=== PATIENT | male | born 1940 | race Caucasian/White ===

== ENCOUNTER → 2017-01-09 | Outpatient (CLI) | payer MEDICARE ==
[2017-01-09 14:56] LABS: ALT 51 U/L (21-72); AST 27 U/L (17-59); Alkaline Phosphatase 51 U/L (38-126); Anion Gap 15 mmol/L; Blood Urea Nitrogen 20 mg/dL (9-20); Carbon Dioxide 27 mmol/L (22-30); Chloride 103 mmol/L (98-107); Cholesterol 114 mg/dL (<200); Glucose 235 mg/dL (74-99); HDL Cholesterol 42 mg/dL (40-60); Non-African American GFR(MDRD) >60 (>60 ml/min/1.73 sqM); Potassium 4.7 mmol/L (3.5-5.1); Sodium 145 mmol/L (137-145); Total Bilirubin 1.3 mg/dL (0.2-1.3); Total Protein 7.6 g/dL (6.3-8.2); Triglycerides 152 mg/dL (<150)
[2017-01-09 14:57] LABS: CH 31.1; CHCM 32.6; HCT 47.4 % (39.0-53.0); HDW 2.62; HGB 15.4 gm/dL (13.0-17.5); MCH 31.2 pg (25.0-35.0); MCHC 32.5 g/dL (31.0-37.0); Mean Platelet Volume 7.9; RBC 4.94 m/uL (4.30-5.90); RDW 13.1 % (11.5-15.5); WBC 9.2 k/uL (3.8-10.6)
--- NOTE | 2017-01-09 15:08 | XR ---
EXAMINATION TYPE: XR chest 2V DATE OF EXAM: 01/09/2017 2:56 PM HISTORY: K21.0 Gastro-esophageal reflux disease with esophagitis. REFERENCE: Previous study dated 10/10/2015. FINDINGS: There is some chronic scarring at the left lung base. The lungs are otherwise clear. Pleura l spaces are clear. The heart is not enlarged. IMPRESSION: CHRONIC SCARRING, LEFT LUNG BASE.
[2017-01-09 15:27] LABS: Prostate Specific Antigen 2.33 ng/mL (0.00-4.00)
[2017-01-09 18:42] LABS: Hemoglobin A1C 8.4 % (4.2-6.1)
== END | disposition home or self-care (01) ==
LOC: LABWHC1 14:09
PROVIDERS: ATTEND Internal Medicine
DX: J98.4 Other disorders of lung (principal); Z00.01 Encounter for general adult medical examination with abnormal findings; I11.9 Hypertensive heart disease without heart failure; E11.9 Type 2 diabetes mellitus without complications; N40.1 Benign prostatic hyperplasia with lower urinary tract symptoms; E03.9 Hypothyroidism, unspecified; K21.0 Gastro-esophageal reflux disease with esophagitis
CPT/HCPCS: 36415; 71020; 80053; 80061; 83036; 84153; 84439; 84443; 85027

== ENCOUNTER → 2018-02-26 | Outpatient (CLI) | payer MEDICARE ==
[2018-02-26 07:52] LABS: HCT 44.5 % (39.0-53.0); HGB 14.7 gm/dL (13.0-17.5); MCH 30.6 pg (25.0-35.0); MCV 92.9 fL (80.0-100.0); Mean Platelet Volume 7.1; Platelet Count 228 k/uL (150-450); RBC 4.79 m/uL (4.30-5.90); WBC 8.5 k/uL (3.8-10.6)
[2018-02-26 08:39] LABS: ALT 33 U/L (21-72); AST 20 U/L (17-59); Albumin 4.3 g/dL (3.5-5.0); Alkaline Phosphatase 49 U/L (38-126); Anion Gap 14 mmol/L; Blood Urea Nitrogen 23 mg/dL (9-20); Calcium 9.9 mg/dL (8.4-10.2); Carbon Dioxide 26 mmol/L (22-30); Chloride 103 mmol/L (98-107); Cholesterol 121 mg/dL (<200); Glucose 231 mg/dL (74-99); HDL Cholesterol 47 mg/dL (40-60); LDL Cholesterol,Calculated 50 mg/dL (0-99); Potassium 4.2 mmol/L (3.5-5.1); Sodium 143 mmol/L (137-145); Total Protein 6.7 g/dL (6.3-8.2); Triglycerides 118 mg/dL (<150)
[2018-02-26 08:55] LABS: T4, Free (Free Thyroxine) 1.23 ng/dL (0.78-2.19)
[2018-02-26 18:03] LABS: Hemoglobin A1C 8.3 % (4.0-6.0)
== END | disposition home or self-care (01) ==
LOC: LABWHC1 07:32
PROVIDERS: ATTEND Internal Medicine Endocrinology, Diabetes & Metabolism
DX: Z00.01 Encounter for general adult medical examination with abnormal findings (principal); I11.9 Hypertensive heart disease without heart failure; E11.65 Type 2 diabetes mellitus with hyperglycemia; N40.1 Benign prostatic hyperplasia with lower urinary tract symptoms
CPT/HCPCS: 36415; 80053; 80061; 82043; 82570; 83036; 84153; 84439; 84443; 85027

== ENCOUNTER → 2018-07-15 | Outpatient (CLI) | payer MEDICARE ==
--- NOTE | 2018-07-15 10:09 | US ---
EXAMINATION TYPE: US abdomen complete DATE OF EXAM: 07/15/2018 COMPARISON: NONE CLINICAL HISTORY: R68.89 Other abnormal clinical findings. Large body habitus, overlying bowel gas, difficult to scan EXAM MEASUREMENTS: Liver Length: 14.5 cm Gallbladder Wall: 0.1 cm CBD: 0.2 cm Spleen: 7.7 cm Right Kidney: 11.7 x 5.9 x 5.4 cm Left Kidney: 11 x 5.7 x 5.2 cm Pancreas: Obscured by bowel gas Liver: portions seen wnl Gallbladder: wnl Evidence for sonographic Salomon's sign: No CBD: wnl Spleen: wnl Right Kidney: wnl Left Kidney:lateral mid 2.4 x 1.6 x 1.8 cm Upper IVC: wnl Abd Aorta: wnl lower rt inguinal area swelling increases in size on valsalva wo valsalva, 3.2 cm w valsalva 4.0 cm The visualized liver is homogenous. The intrahepatic portion of the IVC and visualized abdominal aor ta are within normal limits. There is no evidence of cholelithiasis. Common bile duct is unremarkab le. The visualized portions of the pancreas are homogenous. Portions are obscured by overlying bowel gas on images saved. The spleen is unremarkable. Kidneys are symmetric and free of hydronephrosis. Laterally in left kidney there is nonspecific 2.4 x 1.6 x 1.8 cm oval hypoechoic lesion cannot exclu de solid lesion at this level. Towards end of study study there is asymmetric prominence in the right groin with Valsalva. IMPRESSION: At site of increasing swallowing I suspect fat-containing groin hernia. In addition cannot exclude s olid lesion laterally mid pole level left kidney. Advise contrast-enhanced chest CT abdomen and pelvi s to further evaluate both levels.
== END | disposition home or self-care (01) ==
LOC: RADUSWWP 07:48
PROVIDERS: ATTEND Internal Medicine
DX: R68.89 Other general symptoms and signs (principal); R19.09 Other intra-abdominal and pelvic swelling, mass and lump
CPT/HCPCS: 76700

== ENCOUNTER → 2018-07-28 | Outpatient (CLI) | payer MEDICARE ==
[2018-07-28 13:34] LABS: Blood Urea Nitrogen 21 mg/dL (9-20)
--- NOTE | 2018-07-28 15:09 | CT ---
EXAMINATION TYPE: CT abdomen pelvis w con DATE OF EXAM: 07/28/2018 COMPARISON: NONE HISTORY: 77-year-old male with right groin pain/lump TECHNIQUE: Contiguous axial scanning of the abdomen and pelvis following administration of 100 ml Iso kiran 300 IV contrast. Delayed images through the kidneys and coronal/sagittal reconstructions perform ed. CT DLP: 1508.1 mGycm Automated exposure control for dose reduction was used. FINDINGS: Mild bilateral gynecomastia. Ectatic upper descending thoracic aorta 3.0 cm. Strandy atelectasis with in the visualized mid to lower lungs. No pleural effusion. Heart normal size without pericardial effu fatuma. No focal liver lesion or biliary ductal dilatation. Portal venous system is patent. Gallbladder, adrenal glands, right kidney, spleen, and pancreas appear within normal limits. Subcentimeter hypodensity anterior lower pole left kidney too small fracture CT characterization, lik josh cyst. Additionally, there is a 4 mm nonobstructive calculus in the mid left kidney. No dilated small bowel, free fluid, or free air. No mesenteric or retroperitoneal lymphadenopathy. Mild to moderate atherosclerotic calcifications within the abdominal aorta and iliac arteries. Oral contrast progressed to the cecum. Normal appendix. Scattered jmnp-vq-pjnsodau stool. No pericolo balbir inflammatory change. A moderate sized fat-containing direct right inguinal hernia measuring 7.6 x 4.6 cm. Prostatomegaly a t 5.7 cm wide. Multiple pelvic phlebolith. Bladder nondistended. No abnormal fluid collection the pel vis or pelvic lymphadenopathy. Bones: Mild degenerative changes of the hips. Osteitis pubis. Bilateral L5 pars defects with grade 1 anterolisthesis that L5-S1. Moderate degenerative disc disease L3-L4. No osseous destructive process. IMPRESSION: 1. A MODERATE-SIZED FAT-CONTAINING, RIGHT-SIDED, DIRECT INGUINAL HERNIA MEASURING 7.6 X 4.6 CM. 2. A 4 MM NONOBSTRUCTIVE LEFT RENAL CALCULUS AND PROSTATOMEGALY (5.7 CM WIDE).
== END ==
LOC: RADCTMAIN 12:46
PROVIDERS: ATTEND Internal Medicine
DX: K40.90 Unilateral inguinal hernia, without obstruction or gangrene, not specified as recurrent (principal); N20.0 Calculus of kidney; N40.0 Benign prostatic hyperplasia without lower urinary tract symptoms
CPT/HCPCS: 82565; 84520; 74177; 36415; Q9967

== ENCOUNTER → 2019-02-07 | Outpatient (CLI) | payer MEDICARE ==
--- NOTE | 2019-02-08 10:19 | MR ---
MR brain without contrast HISTORY: Parkinson's disease Multiplanar multisequence imaging obtained through the brain. Correlation to prior MR brain 10/10/2015 There is no restricted diffusion. There is suggestion of absent swallow tail sign in the substantia n igra consistent with patient's history of Parkinson's disease. Cortical atrophy is stable and likely age-related. White matter signal changes show similar appearance to prior exam. There is no hemorrhag e or hydrocephalus. Orbits show symmetric appearance. Inflammatory change within the maxillary sinuse s may represent mucous retention cysts or polyps. There is normal vascular flow voids present. Corpus callosum, pituitary, cervical medullary junction, cerebellopontine angles are within normal limits. IMPRESSION: Age-related atrophy and probable chronic small vessel ischemia. Sinus disease. Findings s uggest patient's diagnosis of Parkinson's disease.
== END ==
LOC: RADMRIMAIN 12:01
PROVIDERS: ATTEND Psychiatry & Neurology Neurology
DX: G20 Parkinson's disease (principal)
CPT/HCPCS: 70551

== ENCOUNTER → 2019-03-30 | Outpatient (CLI) | payer MEDICARE ==
[2019-03-30 14:29] LABS: HCT 44.8 % (39.0-53.0); HGB 14.5 gm/dL (13.0-17.5); MCHC 32.3 g/dL (31.0-37.0); MCV 95.7 fL (80.0-100.0); Mean Platelet Volume 7.2; Platelet Count 269 k/uL (150-450); RBC 4.68 m/uL (4.30-5.90); RDW 13.2 % (11.5-15.5); WBC 7.2 k/uL (3.8-10.6)
[2019-03-30 18:37] LABS: Albumin 4.8 g/dL (3.80-4.90); Albumin/Globulin Ratio 2.67 (1.60-3.17); Anion Gap 13.7 mmol/L (4.00-12.00); Carbon Dioxide 23.3 mmol/L (21.6-31.8); Globulin 1.8 g/dL (1.6-3.3); Potassium 4.3 mmol/L (3.5-5.5); Total Bilirubin 1.2 mg/dL (0.2-1.2); Total Protein 6.6 g/dL (6.2-8.2)
[2019-03-30 18:45] LABS: T4, Free (Free Thyroxine) 1.2 ng/dL (0.80-1.80)
[2019-03-30 21:08] LABS: Hemoglobin A1C 7.7 % (4.0-6.0)
== END ==
LOC: LABWHC1 13:58
PROVIDERS: ATTEND Internal Medicine
DX: Z00.00 Encounter for general adult medical examination without abnormal findings (principal); E11.9 Type 2 diabetes mellitus without complications; I11.9 Hypertensive heart disease without heart failure; E78.2 Mixed hyperlipidemia; N40.1 Benign prostatic hyperplasia with lower urinary tract symptoms; K21.0 Gastro-esophageal reflux disease with esophagitis
CPT/HCPCS: 36415; 80053; 80061; 83036; 84153; 84439; 84443; 85027

== ENCOUNTER 2019-06-22 07:58 | Day surgery (SDC) | payer MEDICARE ==
[2019-06-20 12:41] VITALS: BMI 28.7
[~2019-06-22 07:58] MED LIST: LACTATED RINGERS 1,000 ML IV SCH; LIDOCAINE 1% 20 ML VIAL (10MG/ML) FOR IV START INTRADERMA PRN
[2019-06-22 08:21] VITALS: TEMP 97.5
[2019-06-22 08:37] LABS: Glucose,Whole Blood 218 mg/dL (75-99)
[2019-06-22] MEDS ORDERED: PROPOFOL 10 MG/ML 20 ML VIAL IV ONE (08:43)
[2019-06-22] MEDS ORDERED: LIDOCAINE 1% INJ 10MG/ML (20 ML MDV) ONE (08:43)
--- NOTE | 2019-06-22 08:49 | P.GSHP ---
History of Present Illness H&P Date: 06/22/19 CHIEF COMPLAINT: Colon screen HISTORY OF PRESENT ILLNESS: The patient is a 78-year-old male who presents for colon screen. Lower endoscopy was offered for further evaluation and management. PAST MEDICAL HISTORY: Please see list. PAST SURGICAL HISTORY: Please see list. MEDICATIONS: Please see list. ALLERGIES: Please see list. SOCIAL HISTORY: No illicit drug use FAMILY HISTORY: No reports of Crohn disease or ulcerative colitis. REVIEW OF ORGAN SYSTEMS: CONSTITUTIONAL: No reports of fevers or chills. PHYSICAL EXAM: VITAL SIGNS: Stable GENERAL: Well-developed pleasant in no acute distress. HEENT: No scleral icterus. Extraocular movements grossly intact. Moist buccal mucosa. NECK: Supple without lymphadenopathy. CHEST: Unlabored respirations. Equal bilateral excursions. CARDIOVASCULAR: Regular rate and rhythm. Distal 2+ pulses. ABDOMEN: Soft, nontender, nondistended. MUSCULOSKELETAL: No clubbing, cyanosis, or edema. ASSESSMENT: 1. Colon screen. PLAN: 1. Recommend proceeding with a lower endoscopy Past Medical History Past Medical History: CVA/TIA, Diabetes Mellitus, Eye Disorder, Neurologic Disorder, Prostate Disorder, Thyroid Disorder Additional Past Medical History / Comment(s): PARKINSON'S. BILAT CATARACTS. [id number] LEFT SIDE History of Any Multi-Drug Resistant Organisms: None Reported Past Surgical History: Hernia Repair Additional Past Surgical History / Comment(s): bowel obstruction as a baby. COLONOSCOPY. Past Anesthesia/Blood Transfusion Reactions: No Reported Reaction Smoking Status: Current every day smoker - Past Family History Father Family Medical History: Asthma, Cancer, Congestive Heart Failure (CHF), CVA/TIA Mother Family Medical History: Congestive Heart Failure (CHF), Diabetes Mellitus Medications and Allergies Home Medications Medication Instructions Recorded Confirmed Type glipiZIDE [Glucotrol] 10 mg PO BID 10/10/15 06/22/19 History Simvastatin [Zocor] 40 mg PO HS #30 tab 10/12/15 06/22/19 Rx Aspirin [Adult Low Dose Aspirin EC] 81 mg PO BID 06/20/19 06/20/19 History Carbidopa-Levodopa 25-100 mg 1 each PO TID 06/20/19 06/22/19 History [Sinemet 25-100] Glucosamine/MSM/Chrond/D3/Bosw 1 each PO DAILY 06/20/19 06/22/19 History [Imvpinfgfzx-Lyjtix-PSG-D3 Cplt] Levothyroxine Sodium [Synthroid] 75 mcg PO DAILY 06/20/19 06/22/19 History Multivitamins, Thera [Multivitamin 1 each PO DAILY 06/20/19 06/20/19 History (formulary)] Occuvite 1 each PO DAILY 06/20/19 History Pioglitazone [Actos] 30 mg PO DAILY 06/20/19 06/22/19 History Primidone [Mysoline] 50 mg PO DAILY 06/20/19 06/22/19 History Tamsulosin [Flomax] 0.4 mg PO HS 06/20/19 06/22/19 History Tolterodine ER [Detrol LA] 4 mg PO DAILY 06/20/19 06/22/19 History metFORMIN HCL 1,000 mg PO AC-BRKFST 06/20/19 06/22/19 History metFORMIN HCL 1,500 mg PO AC-SUPPER 06/20/19 06/22/19 History Allergies Allergy/AdvReac Type Severity Reaction Status Date / Time No Known Allergies Allergy Verified 06/20/19 12:26 Surgical - Exam Vital Signs Temp Pulse Resp BP Pulse Ox 97.5 F L 109 H 16 117/65 93 L 06/22/19 08:19 06/22/19 08:19 06/22/19 08:19 06/22/19 08:19 06/22/19 08:19 Results - Labs Abnormal Lab Results - Last 24 Hours (Table) 06/22/19 Range/Units 08:27 POC Glucose (mg/dL) 218 H (75-99) mg/dL
--- NOTE | 2019-06-22 09:06 | P.PCN ---
Date of Procedure: 06/22/19 Description of Procedure: PREOPERATIVE DIAGNOSIS: Colonoscopy screening POSTOPERATIVE DIAGNOSIS: Colonoscopy screening Transverse colon adenoma Ascending colon adenoma OPERATION: Colonoscopy to the ileocecal valve and appendiceal orifice. Colonoscopy with multiple cold forceps biopsies. SURGEON: Shirley James MD. ANESTHESIA: MAC. INDICATIONS: The patient is a 78-year-old male who presents for colonoscopy screening. Last colonoscopy over 15 years ago. Benefits and risks were described and informed consent was obtained. DESCRIPTION OF PROCEDURE: The patient had undergone Suprep. He had been brought into the operating room and laid in the left lateral decubitus position. After adequate intravenous sedation, the rectum was examined with 2% lidocaine jelly. No external hemorrhoids were encountered. The prostatic fossa was unremarkable. The rectal tone was within normal limits. No lesions were palpated in the rectal vault. An Olympus colonoscope was advanced until the ileocecal valve and appendiceal orifice were clearly viewed. The prep was excellent. No scattered diverticulosis was encountered. Multiple colonic polyps were found and cold forcep biopsy. No evidence of focal colitis was found. Retroflexion of the scope demonstrated no internal hemorrhoids. The colon was desufflated. The patient had tolerated the procedure well. Withdrawal time was over 6 minutes. FINDINGS: Aronchick preparation quality scale 1(1-5) No internal hemorrhoids No external hemorrhoids No arteriovenous malformations No diverticulosis Removal of 2 polyps: - Cold forceps biopsy at ascending colon, 5 mm polyp. - Cold forceps biopsy at mid transverse colon, 4 mm polyp. No focal colitis. RECOMMENDATIONS: Repeat colonoscopy 3 years, 2021 Plan - Discharge Summary Discharge Rx Participant: No New Discharge Prescriptions: No Action glipiZIDE [Glucotrol] 10 mg PO BID Simvastatin [Zocor] 40 mg PO HS #30 tab metFORMIN HCL 1,000 mg PO AC-BRKFST Tolterodine ER [Detrol LA] 4 mg PO DAILY Pioglitazone [Actos] 30 mg PO DAILY Levothyroxine Sodium [Synthroid] 75 mcg PO DAILY Carbidopa-Levodopa 25-100 mg [Sinemet 25-100] 1 each PO TID metFORMIN HCL 1,500 mg PO AC-SUPPER Tamsulosin [Flomax] 0.4 mg PO HS Primidone [Mysoline] 50 mg PO DAILY Occuvite 1 each PO DAILY Multivitamins, Thera [Multivitamin (formulary)] 1 each PO DAILY Aspirin [Adult Low Dose Aspirin EC] 81 mg PO BID Glucosamine/MSM/Chrond/D3/Bosw [Xzcqgwjobnz-Ekjfxa-VTM-D3 Cplt] 1 each PO DAILY Discharge Medication List glipiZIDE [Glucotrol] 10 mg PO BID 10/10/15 [History] Simvastatin [Zocor] 40 mg PO HS #30 tab 10/12/15 [Rx] Aspirin [Adult Low Dose Aspirin EC] 81 mg PO BID 06/20/19 [History] Carbidopa-Levodopa 25-100 mg [Sinemet 25-100] 1 each PO TID 06/20/19 [History] Glucosamine/MSM/Chrond/D3/Bosw [Gvghehyehww-Oxpicd-CDY-D3 Cplt] 1 each PO DAILY 06/20/19 [History] Levothyroxine Sodium [Synthroid] 75 mcg PO DAILY 06/20/19 [History] Multivitamins, Thera [Multivitamin (formulary)] 1 each PO DAILY 06/20/19 [History] Occuvite 1 each PO DAILY 06/20/19 [History] Pioglitazone [Actos] 30 mg PO DAILY 06/20/19 [History] Primidone [Mysoline] 50 mg PO DAILY 06/20/19 [History] Tamsulosin [Flomax] 0.4 mg PO HS 06/20/19 [History] Tolterodine ER [Detrol LA] 4 mg PO DAILY 06/20/19 [History] metFORMIN HCL 1,000 mg PO AC-BRKFST 06/20/19 [History] metFORMIN HCL 1,500 mg PO AC-SUPPER 06/20/19 [History] Follow up Appointment(s)/Referral(s): Shirley James MD [STAFF PHYSICIAN] - As Needed Patient Instructions/Handouts: Colorectal Polyps (DC) Activity/Diet/Wound Care/Special Instructions: Repeat colonoscopy in 3 years, 2021 Discharge Disposition: HOME SELF-CARE
[2019-06-22 09:22] VITALS: BP 132/78; PULSE 83; RESP 16
== END 2019-06-22 09:30 | disposition home or self-care (01) ==
LOC: ORWHC2ENDO 07:58
PROVIDERS: ATTEND Surgery Plastic and Reconstructive Surgery
DX: Z12.11 Encounter for screening for malignant neoplasm of colon (principal); D12.2 Benign neoplasm of ascending colon; D12.3 Benign neoplasm of transverse colon; G20 Parkinson's disease; E11.9 Type 2 diabetes mellitus without complications; I69.344 Monoplegia of lower limb following cerebral infarction affecting left non-dominant side; E07.9 Disorder of thyroid, unspecified; H26.9 Unspecified cataract; N42.9 Disorder of prostate, unspecified; F17.220 Nicotine dependence, chewing tobacco, uncomplicated; Z79.82 Long term (current) use of aspirin; Z79.84 Long term (current) use of oral hypoglycemic drugs; Z79.890 Hormone replacement therapy; Z79.899 Other long term (current) drug therapy; Z98.890 Other specified postprocedural states; Z86.73 Personal history of transient ischemic attack (TIA), and cerebral infarction without residual deficits; Z87.19 Personal history of other diseases of the digestive system; Z83.3 Family history of diabetes mellitus; Z82.5 Family history of asthma and other chronic lower respiratory diseases; Z80.9 Family history of malignant neoplasm, unspecified; Z82.3 Family history of stroke; Z82.49 Family history of ischemic heart disease and other diseases of the circulatory system
CPT/HCPCS: 45380; 88305

== ENCOUNTER → 2020-01-02 | Outpatient (CLI) | payer MEDICARE ==
[2020-01-02 14:14] LABS: Appearance,Urine Clear (Clear); Basophils % (A) 1 %; Bilirubin,Urine Negative (Negative); Blood,Urine Negative (Negative); Color,Urine Yellow; Eosinophils # (A) 0.2 k/uL (0-0.7); Eosinophils % (A) 2 %; Glucose,Urine (UA) 2+ (Negative); HCT 43.9 % (39.0-53.0); HGB 13.7 gm/dL (13.0-17.5); Ketones,Urine Negative (Negative); Leukocyte Esterase,Urine Negative (Negative); Lymphocytes # (A) 1.4 k/uL (1.0-4.8); Lymphocytes % (A) 21 %; MCH 29.9 pg (25.0-35.0); MCHC 31.1 g/dL (31.0-37.0); MCV 96.2 fL (80.0-100.0); Mean Platelet Volume 7.7; Monocytes # (A) 0.4 k/uL (0-1.0); Monocytes % (A) 6 %; Neutrophils # (A) 4.4 k/uL (1.3-7.7); Neutrophils % (A) 68 %; Nitrite,Urine Negative (Negative); Platelet Count 215 k/uL (150-450); Protein,Urine Trace (Negative); RBC 4.56 m/uL (4.30-5.90); RDW 13.6 % (11.5-15.5); Specific Gravity,Urine 1.024 (1.001-1.035); WBC 6.4 k/uL (3.8-10.6)
[2020-01-02 20:28] LABS: Hepatitis A Antibody IgM Non-Reactive (Non-Reactive); Hepatitis B Core IgM Non-Reactive (Non-Reactive); Hepatitis B Surface Antigen Non-Reactive (Non-Reactive); Hepatitis C IgG Antibody Non-Reactive (Non-Reactive)
[2020-01-02 20:32] LABS: Hemoglobin A1C 7.6 % (4.0-6.0)
[2020-01-02 21:03] LABS: African American GFR (CKD) 83.8 (60.0-200.0); Albumin 4.5 g/dL (3.80-4.90); Albumin/Globulin Ratio 2.5 (1.60-3.17); Anion Gap 11.4 mmol/L (4.00-12.00); Calcium 9.6 mg/dL (8.7-10.3); Carbon Dioxide 27.6 mmol/L (21.6-31.8); Chol/HDL Ratio 2.85; Globulin 1.8 g/dL (1.6-3.3); LDL Cholesterol,Calculated 54.4 mg/dL (0.0-131.0); Non-African American GFR(CKD) 72.3 (60.0-200.0); Potassium 4.3 mmol/L (3.5-5.5); Total Bilirubin 1.2 mg/dL (0.2-1.2); Total Protein 6.3 g/dL (6.2-8.2); Uric Acid 3.3 mg/dL (3.7-8.7); VLDL Calculation 19.6 mg/dL (5.00-40.00)
[2020-01-02 21:13] LABS: T4, Free (Free Thyroxine) 1.6 ng/dL (0.80-1.80)
[2020-01-02 21:27] LABS: Urine Creatinine 187.4 mg/dL
== END | disposition home or self-care (01) ==
LOC: LABWHC1 13:41
PROVIDERS: ATTEND Internal Medicine
DX: E78.5 Hyperlipidemia, unspecified (principal); I10 Essential (primary) hypertension; E55.9 Vitamin D deficiency, unspecified; E11.9 Type 2 diabetes mellitus without complications; N40.0 Benign prostatic hyperplasia without lower urinary tract symptoms; R00.0 Tachycardia, unspecified
CPT/HCPCS: 36415; 80053; 80061; 80074; 81003; 82043; 82306; 82570; 83036; 84153; 84439; 84443; 84550; 85025

== ENCOUNTER 2020-03-05 12:07 | Inpatient (IN) | payer MEDICARE ==
[2020-03-05] MEDS ORDERED: SODIUM CHLORIDE 0.9% 1,000 ML IV STA (12:40)
--- NOTE | 2020-03-05 12:46 | ED ---
Weakness HPI - General Source: EMS Mode of arrival: EMS Limitations: no limitations <Adam Sherman - Last Filed: 03/05/20 18:28> <Sepideh Juares - Last Filed: 03/07/20 03:28> - General Chief complaint: Weakness Stated complaint: Weakness Time Seen by Provider: 03/05/20 12:28 - History of Present Illness Initial comments: Patient is 79-year-old male with history of CVA and Parkinson's presenting to emergency Department with a chief complaint of weakness. Patient has mild left- sided deficits from a previous stroke. Patient states his history is developed increased weakness in his left leg, more than his usual deficits. Patient states today he was attempting to go to the bathroom when he felt slightly weak on the left leg and fell to the floor. Patient was brought to the ED via EMS. Patient denies any changes to his left upper extremity or vision. Patient also reports foul-smelling urine over the past year to 3 days but denies any penile irritation, testicular pain or swelling. Denies any chest pain shortness of breath, fevers night sweats or chills. Denies any headaches, abdominal pain, na usea vomiting diarrhea. Does report decreased by mouth intake Over the last week. (Adam Sherman) - Related Data Home Medications Medication Instructions Recorded Confirmed glipiZIDE [Glucotrol] 10 mg PO BID 10/10/15 03/05/20 Aspirin [Adult Low Dose Aspirin EC] 81 mg PO BID 06/20/19 03/05/20 Carbidopa-Levodopa 25-100 mg 1 tab PO QID 06/20/19 03/05/20 [Sinemet 25-100] Glucosamine/MSM/Chrond/D3/Bosw 1 tab PO DAILY 06/20/19 03/05/20 [Eocznldtrer-Mkjdwj-XAU-D3 Cplt] Levothyroxine Sodium [Synthroid] 75 mcg PO DAILY 06/20/19 03/05/20 Multivitamins, Thera [Multivitamin 1 each PO DAILY 06/20/19 03/05/20 (formulary)] Occuvite 1 tab PO DAILY 06/20/19 03/05/20 Pioglitazone [Actos] 30 mg PO DAILY 06/20/19 03/05/20 Tamsulosin [Flomax] 0.4 mg PO BID 06/20/19 03/05/20 metFORMIN HCL 1,000 mg PO AC-BRKFST 06/20/19 03/05/20 metFORMIN HCL 1,500 mg PO AC-SUPPER 06/20/19 03/05/20 Metoprolol Succinate (ER) [Toprol 25 mg PO DAILY 03/05/20 03/05/20 Xl] Allergies Allergy/AdvReac Type Severity Reaction Status Date / Time No Known Allergies Allergy Verified 03/05/20 14:37 Review of Systems ROS Other: All systems not noted in ROS Statement are negative. <Adam Sherman - Last Filed: 03/05/20 18:28> ROS Other: All systems not noted in ROS Statement are negative. <Sepideh Juares - Last Filed: 03/07/20 03:28> ROS Statement: Those systems with pertinent positive or pertinent negative responses have been documented in the HPI. Past Medical History Past Medical History: CVA/TIA, Diabetes Mellitus, Eye Disorder, Neurologic Disorder, Prostate Disorder, Thyroid Disorder Additional Past Medical History / Comment(s): PARKINSON'S. BILAT CATARACTS. [id number] LEFT SIDE History of Any Multi-Drug Resistant Organisms: None Reported Past Surgical History: Hernia Repair Additional Past Surgical History / Comment(s): bowel obstruction as a baby. COLONOSCOPY. Past Anesthesia/Blood Transfusion Reactions: No Reported Reaction Past Psychological History: No Psychological Hx Reported Smoking Status: Current every day smoker - Past Family History Father Family Medical History: Asthma, Cancer, Congestive Heart Failure (CHF), CVA/TIA Mother Family Medical History: Congestive Heart Failure (CHF), Diabetes Mellitus <Adam Sherman - Last Filed: 03/05/20 18:28> General Exam Limitations: no limitations General appearance: alert, in no apparent distress Head exam: Present: atraumatic, normocephalic, normal inspection Eye exam: Present: normal appearance, PERRL, EOMI. Absent: scleral icterus, con junctival injection, nystagmus Pupils: Present: normal accommodation. Absent: irregular, unequal, miosis, mydriatic ENT exam: Present: normal exam, normal oropharynx, mucous membranes moist, TM's normal bilaterally, normal external ear exam Neck exam: Present: normal inspection, full ROM Respiratory exam: Present: normal lung sounds bilaterally. Absent: respiratory distress, wheezes, rales, rhonchi, stridor, chest wall tenderness Cardiovascular Exam: Present: regular rate, normal rhythm, normal heart sounds GI/Abdominal exam: Present: soft. Absent: distended, tenderness, guarding Extremities exam: Present: normal inspection, full ROM, normal capillary refill, other (+2 dorsalis pedis and posterior tibialis bilaterally.). Absent: tenderness, pedal edema, joint swelling, calf tenderness Back exam: Present: normal inspection, full ROM Neurological exam: Present: alert, oriented X3, CN II-XII intact, normal gait, reflexes normal, other (Strength 5/5 in bilateral lower Extremities) Psychiatric exam: Present: normal affect, normal mood Skin exam: Present: warm, dry, intact, normal color <Adam Sherman - Last Filed: 03/05/20 18:28> Course Vital Signs 03/05/20 03/05/20 03/05/20 12:36 13:07 14:49 Temperature 99.5 F Pulse Rate 89 82 97 Respiratory 20 18 18 Rate Blood Pressure 148/84 151/85 158/70 O2 Sat by Pulse 96 95 95 Oximetry 03/05/20 03/05/20 18:10 20:02 Temperature 98.9 F 98.8 F Pulse Rate 73 77 Respiratory 18 18 Rate Blood Pressure 156/85 146/94 O2 Sat by Pulse 97 99 Oximetry EKG Findings - EKG Comments: EKG Findings:: First-degree AV block, no ST changes or T-wave inversions. Ventricular rate 75, NE 218, QRS 90, QTc 426. <Adam Sherman - Last Filed: 03/05/20 18:28> Medical Decision Making - Lab Data Result diagrams: 03/05/20 12:45 03/05/20 12:45 <Adam Sherman - Last Filed: 03/05/20 18:28> - Lab Data Result diagrams: 03/06/20 05:49 03/06/20 05:49 <Sepideh Juares - Last Filed: 03/07/20 03:28> - Medical Decision Making Patient is 79-year-old male with history of Parkinson's disease and CVA presenting to the emergency department with a chief complaint of weakness. Weakness in the left lower extremity for the past 2 days. Mild left-sided paralysis at baseline. Patient had a fall today and brought to the ED via EMS. Neurological examination is unremarkable. Patient did also complain of foul urine smell he does have trace amounts of ketones. Patient did report decreased oral fluid intake. Lactate is 2.3 which I suspect secondary to the mild dehydr ation. CT brain is unremarkable. EKG shows first-degree AV block. Patient is otherwise well-appearing. Patient did attempt to ambulate in the ED, however weakness was persistent and he was a one-person assist. Patient is concerned if he goes home, he will have difficulty and bleeding due to the weakness. Case discussed with . Patient will be admitted for further medical management. Admitting physician is Dr. Jama Neurology consulted. (Adam Sherman) I was available for consultation in the emergency department. The history and physical exam were done by the midlevel provider. I was consulted for this patients care. I reviewed the case with the midlevel provider and based on their presentation of the patient, I agree with the assessment, medical decision making and plan of care as documented. Patient arrives to the ED with lower extremity weakness x 2 days therefore he was not a TPA or thrombectomy candidate. Chart was dictated using Gild dictation software. Attempts were made to correct any dictation errors however some typographical errors may persist. Patient was seen during a national state of emergency due to the Covid-19 fabricio kaitlin. (Sepideh Juares) - Lab Data Lab Results 03/05/20 03/05/20 03/05/20 Range/Units 12:45 12:45 12:45 WBC 7.5 (3.8-10.6) k/uL RBC 4.29 L (4.30-5.90) m/uL Hgb 13.1 (13.0-17.5) gm/dL Hct 41.5 (39.0-53.0) % MCV 96.8 (80.0-100.0) fL MCH 30.5 (25.0-35.0) pg MCHC 31.5 (31.0-37.0) g/dL RDW 13.6 (11.5-15.5) % Plt Count 196 (150-450) k/uL Neutrophils % 73 % Lymphocytes % 16 % Monocytes % 6 % Eosinophils % 2 % Basophils % 1 % Neutrophils # 5.5 (1.3-7.7) k/uL Lymphocytes # 1.2 (1.0-4.8) k/uL Monocytes # 0.4 (0-1.0) k/uL Eosinophils # 0.1 (0-0.7) k/uL Basophils # 0.1 (0-0.2) k/uL PT 11.0 (9.0-12.0) sec INR 1.1 (<1.2) APTT 23.0 (22.0-30.0) sec Sodium 140 (137-145) mmol/L Potassium 3.8 (3.5-5.1) mmol/L Chloride 107 (98-107) mmol/L Carbon Dioxide 25 (22-30) mmol/L Anion Gap 8 mmol/L BUN 22 H (9-20) mg/dL Creatinine 0.67 (0.66-1.25) mg/dL Est GFR (CKD-EPI)AfAm >90 (>60 ml/min/1.73 sqM) Est GFR (CKD-EPI)NonAf >90 (>60 ml/min/1.73 sqM) Glucose 181 H (74-99) mg/dL POC Glucose (mg/dL) (75-99) mg/dL POC Glu Infection Prevention Coordinator ID Estimated Ave Glu mg/dL Hemoglobin A1c (4.0-6.0) % Lactic Ac Sepsis Rflx Plasma Lactic Acid Jamari (0.7-2.0) mmol/L Calcium 9.8 (8.4-10.2) mg/dL Total Bilirubin 1.0 (0.2-1.3) mg/dL AST 20 (17-59) U/L ALT 16 (4-49) U/L Alkaline Phosphatase 49 (38-126) U/L Troponin I (0.000-0.034) ng/mL Total Protein 6.5 (6.3-8.2) g/dL Albumin 4.0 (3.5-5.0) g/dL TSH (0.465-4.680) mIU/L Urine Color Urine Appearance (Clear) Urine pH (5.0-8.0) Ur Specific [place] (1.001-1.035) Urine Protein (Negative) Urine Glucose (UA) (Negative) Urine Ketones (Negative) Urine Blood (Negative) Urine Nitrite (Negative) Urine Bilirubin (Negative) Urine Urobilinogen (<2.0) mg/dL Ur Leukocyte Esterase (Negative) Urine RBC (0-5) /hpf Urine WBC (0-5) /hpf Ur Squamous Epith Cells (0-4) /hpf Hyaline Casts (0-2) /lpf Urine Mucus (None) /hpf Coronavirus (PCR) (Not Detectd) 03/05/20 03/05/20 03/05/20 Range/Units 12:45 12:45 13:29 WBC (3.8-10.6) k/uL RBC (4.30-5.90) m/uL Hgb (13.0-17.5) gm/dL Hct (39.0-53.0) % MCV (80.0-100.0) fL MCH (25.0-35.0) pg MCHC (31.0-37.0) g/dL RDW (11.5-15.5) % Plt Count (150-450) k/uL Neutrophils % % Lymphocytes % % Monocytes % % Eosinophils % % Basophils % % Neutrophils # (1.3-7.7) k/uL Lymphocytes # (1.0-4.8) k/uL Monocytes # (0-1.0) k/uL Eosinophils # (0-0.7) k/uL Basophils # (0-0.2) k/uL PT (9.0-12.0) sec INR (<1.2) APTT (22.0-30.0) sec Sodium (137-145) mmol/L Potassium (3.5-5.1) mmol/L Chloride (98-107) mmol/L Carbon Dioxide (22-30) mmol/L Anion Gap mmol/L BUN (9-20) mg/dL Creatinine (0.66-1.25) mg/dL Est GFR (CKD-EPI)AfAm (>60 ml/min/1.73 sqM) Est GFR (CKD-EPI)NonAf (>60 ml/min/1.73 sqM) Glucose (74-99) mg/dL POC Glucose (mg/dL) (75-99) mg/dL POC Glu Infection Prevention Coordinator ID Estimated Ave Glu mg/dL Hemoglobin A1c (4.0-6.0) % Lactic Ac Sepsis Rflx Y Plasma Lactic Acid Jamari 2.3 H* (0.7-2.0) mmol/L Calcium (8.4-10.2) mg/dL Total Bilirubin (0.2-1.3) mg/dL AST (17-59) U/L ALT (4-49) U/L Alkaline Phosphatase (38-126) U/L Troponin I <0.012 (0.000-0.034) ng/mL Total Protein (6.3-8.2) g/dL Albumin (3.5-5.0) g/dL TSH (0.465-4.680) mIU/L Urine Color Urine Appearance (Clear) Urine pH (5.0-8.0) Ur Specific [place] (1.001-1.035) Urine Protein (Negative) Urine Glucose (UA) (Negative) Urine Ketones (Negative) Urine Blood (Negative) Urine Nitrite (Negative) Urine Bilirubin (Negative) Urine Urobilinogen (<2.0) mg/dL Ur Leukocyte Esterase (Negative) Urine RBC (0-5) /hpf Urine WBC (0-5) /hpf Ur Squamous Epith Cells (0-4) /hpf Hyaline Casts (0-2) /lpf Urine Mucus (None) /hpf Coronavirus (PCR) (Not Detectd) 03/05/20 03/05/20 03/05/20 Range/Units 13:45 16:50 19:30 WBC (3.8-10.6) k/uL RBC (4.30-5.90) m/uL Hgb (13.0-17.5) gm/dL Hct (39.0-53.0) % MCV (80.0-100.0) fL MCH (25.0-35.0) pg MCHC (31.0-37.0) g/dL RDW (11.5-15.5) % Plt Count (150-450) k/uL Neutrophils % % Lymphocytes % % Monocytes % % Eosinophils % % Basophils % % Neutrophils # (1.3-7.7) k/uL Lymphocytes # (1.0-4.8) k/uL Monocytes # (0-1.0) k/uL Eosinophils # (0-0.7) k/uL Basophils # (0-0.2) k/uL PT (9.0-12.0) sec INR (<1.2) APTT (22.0-30.0) sec Sodium (137-145) mmol/L Potassium (3.5-5.1) mmol/L Chloride (98-107) mmol/L Carbon Dioxide (22-30) mmol/L Anion Gap mmol/L BUN (9-20) mg/dL Creatinine (0.66-1.25) mg/dL Est GFR (CKD-EPI)AfAm (>60 ml/min/1.73 sqM) Est GFR (CKD-EPI)NonAf (>60 ml/min/1.73 sqM) Glucose (74-99) mg/dL POC Glucose (mg/dL) (75-99) mg/dL POC Glu Infection Prevention Coordinator ID Estimated Ave Glu mg/dL Hemoglobin A1c (4.0-6.0) % Lactic Ac Sepsis Rflx Plasma Lactic Acid Jamari 1.9 (0.7-2.0) mmol/L Calcium (8.4-10.2) mg/dL Total Bilirubin (0.2-1.3) mg/dL AST (17-59) U/L ALT (4-49) U/L Alkaline Phosphatase (38-126) U/L Troponin I (0.000-0.034) ng/mL Total Protein (6.3-8.2) g/dL Albumin (3.5-5.0) g/dL TSH (0.465-4.680) mIU/L Urine Color Yellow Urine Appearance Clear (Clear) Urine pH 5.5 (5.0-8.0) Ur Specific [place] 1.024 (1.001-1.035) Urine Protein 1+ H (Negative) Urine Glucose (UA) 4+ H (Negative) Urine Ketones Trace H (Negative) Urine Blood Negative (Negative) Urine Nitrite Negative (Negative) Urine Bilirubin Negative (Negative) Urine Urobilinogen <2.0 (<2.0) mg/dL Ur Leukocyte Esterase Negative (Negative) Urine RBC <1 (0-5) /hpf Urine WBC 2 (0-5) /hpf Ur Squamous Epith Cells <1 (0-4) /hpf Hyaline Casts 6 H (0-2) /lpf Urine Mucus Many H (None) /hpf Coronavirus (PCR) Not Detected (Not Detectd) 03/05/20 03/06/20 03/06/20 Range/Units 20:38 05:49 05:49 WBC 6.7 (3.8-10.6) k/uL RBC 3.83 L (4.30-5.90) m/uL Hgb 11.7 L (13.0-17.5) gm/dL Hct 37.5 L (39.0-53.0) % MCV 97.7 (80.0-100.0) fL MCH 30.6 (25.0-35.0) pg MCHC 31.3 (31.0-37.0) g/dL RDW 13.7 (11.5-15.5) % Plt Count 172 (150-450) k/uL Neutrophils % 63 % Lymphocytes % 23 % Monocytes % 7 % Eosinophils % 3 % Basophils % 1 % Neutrophils # 4.2 (1.3-7.7) k/uL Lymphocytes # 1.5 (1.0-4.8) k/uL Monocytes # 0.5 (0-1.0) k/uL Eosinophils # 0.2 (0-0.7) k/uL Basophils # 0.1 (0-0.2) k/uL PT (9.0-12.0) sec INR (<1.2) APTT (22.0-30.0) sec Sodium (137-145) mmol/L Potassium (3.5-5.1) mmol/L Chloride (98-107) mmol/L Carbon Dioxide (22-30) mmol/L Anion Gap mmol/L BUN (9-20) mg/dL Creatinine (0.66-1.25) mg/dL Est GFR (CKD-EPI)AfAm (>60 ml/min/1.73 sqM) Est GFR (CKD-EPI)NonAf (>60 ml/min/1.73 sqM) Glucose (74-99) mg/dL POC Glucose (mg/dL) 186 H (75-99) mg/dL POC Glu Infection Prevention Coordinator ID Nae [place] Estimated [address] Glu mg/dL 171 Hemoglobin A1c 7.6 H (4.0-6.0) % Lactic Ac Sepsis Rflx Plasma Lactic Acid Jamari (0.7-2.0) mmol/L Calcium (8.4-10.2) mg/dL Total Bilirubin (0.2-1.3) mg/dL AST (17-59) U/L ALT (4-49) U/L Alkaline Phosphatase (38-126) U/L Troponin I (0.000-0.034) ng/mL Total Protein (6.3-8.2) g/dL Albumin (3.5-5.0) g/dL TSH (0.465-4.680) mIU/L Urine Color Urine Appearance (Clear) Urine pH (5.0-8.0) Ur Specific [place] (1.001-1.035) Urine Protein (Negative) Urine Glucose (UA) (Negative) Urine Ketones (Negative) Urine Blood (Negative) Urine Nitrite (Negative) Urine Bilirubin (Negative) Urine Urobilinogen (<2.0) mg/dL Ur Leukocyte Esterase (Negative) Urine RBC (0-5) /hpf Urine WBC (0-5) /hpf Ur Squamous Epith Cells (0-4) /hpf Hyaline Casts (0-2) /lpf Urine Mucus (None) /hpf Coronavirus (PCR) (Not Detectd) 03/06/20 03/06/20 03/06/20 Range/Units 05:49 06:21 11:50 WBC (3.8-10.6) k/uL RBC (4.30-5.90) m/uL Hgb (13.0-17.5) gm/dL Hct (39.0-53.0) % MCV (80.0-100.0) fL MCH (25.0-35.0) pg MCHC (31.0-37.0) g/dL RDW (11.5-15.5) % Plt Count (150-450) k/uL Neutrophils % % Lymphocytes % % Monocytes % % Eosinophils % % Basophils % % Neutrophils # (1.3-7.7) k/uL Lymphocytes # (1.0-4.8) k/uL Monocytes # (0-1.0) k/uL Eosinophils # (0-0.7) k/uL Basophils # (0-0.2) k/uL PT (9.0-12.0) sec INR (<1.2) APTT (22.0-30.0) sec Sodium 140 (137-145) mmol/L Potassium 3.9 (3.5-5.1) mmol/L Chloride 109 H (98-107) mmol/L Carbon Dioxide 27 (22-30) mmol/L Anion Gap 4 mmol/L BUN 22 H (9-20) mg/dL Creatinine 0.72 (0.66-1.25) mg/dL Est GFR (CKD-EPI)AfAm >90 (>60 ml/min/1.73 sqM) Est GFR (CKD-EPI)NonAf 90 (>60 ml/min/1.73 sqM) Glucose 99 (74-99) mg/dL POC Glucose (mg/dL) 95 151 H (75-99) mg/dL POC Glu Infection Prevention Coordinator ID Naman [place] [address] Estimated [address] Glu mg/dL Hemoglobin A1c (4.0-6.0) % Lactic Ac Sepsis Rflx Plasma Lactic Acid Jamari (0.7-2.0) mmol/L Calcium 8.9 (8.4-10.2) mg/dL Total Bilirubin (0.2-1.3) mg/dL AST (17-59) U/L ALT (4-49) U/L Alkaline Phosphatase (38-126) U/L Troponin I (0.000-0.034) ng/mL Total Protein (6.3-8.2) g/dL Albumin (3.5-5.0) g/dL TSH 3.300 (0.465-4.680) mIU/L Urine Color Urine Appearance (Clear) Urine pH (5.0-8.0) Ur Specific [place] (1.001-1.035) Urine Protein (Negative) Urine Glucose (UA) (Negative) Urine Ketones (Negative) Urine Blood (Negative) Urine Nitrite (Negative) Urine Bilirubin (Negative) Urine Urobilinogen (<2.0) mg/dL Ur Leukocyte Esterase (Negative) Urine RBC (0-5) /hpf Urine WBC (0-5) /hpf Ur Squamous Epith Cells (0-4) /hpf Hyaline Casts (0-2) /lpf Urine Mucus (None) /hpf Coronavirus (PCR) (Not Detectd) Disposition Is patient prescribed a controlled substance at d/c from ED?: No Time of Disposition: 18:32 <Adam Sherman - Last Filed: 03/05/20 18:28> <Sepideh Juares - Last Filed: 03/07/20 03:28> Clinical Impression: Weakness Disposition: ADMITTED IP TO THIS HOSP Condition: Good
[2020-03-05 13:16] LABS: Basophils # (A) 0.1 k/uL (0-0.2); Basophils % (A) 1 %; Eosinophils # (A) 0.1 k/uL (0-0.7); Eosinophils % (A) 2 %; HCT 41.5 % (39.0-53.0); HGB 13.1 gm/dL (13.0-17.5); Lymphocytes # (A) 1.2 k/uL (1.0-4.8); Lymphocytes % (A) 16 %; MCH 30.5 pg (25.0-35.0); MCHC 31.5 g/dL (31.0-37.0); MCV 96.8 fL (80.0-100.0); Mean Platelet Volume 7.7; Monocytes # (A) 0.4 k/uL (0-1.0); Monocytes % (A) 6 %; Neutrophils # (A) 5.5 k/uL (1.3-7.7); Neutrophils % (A) 73 %; Platelet Count 196 k/uL (150-450); RBC 4.29 m/uL (4.30-5.90); RDW 13.6 % (11.5-15.5); WBC 7.5 k/uL (3.8-10.6)
[2020-03-05 13:27] LABS: ALT 16 U/L (4-49); AST 20 U/L (17-59); African American GFR (CKD) >90 (>60 ml/min/1.73 sqM); Alkaline Phosphatase 49 U/L (38-126); Anion Gap 8 mmol/L; Blood Urea Nitrogen 22 mg/dL (9-20); Calcium 9.8 mg/dL (8.4-10.2); Carbon Dioxide 25 mmol/L (22-30); Chloride 107 mmol/L (98-107); Glucose 181 mg/dL (74-99); Non-African American GFR(CKD) >90 (>60 ml/min/1.73 sqM); Potassium 3.8 mmol/L (3.5-5.1); Sodium 140 mmol/L (137-145); Total Protein 6.5 g/dL (6.3-8.2)
--- NOTE | 2020-03-05 13:29 | XR ---
EXAMINATION TYPE: XR chest 2V DATE OF EXAM: 03/05/2020 COMPARISON: 01/09/2017 HISTORY: Lower extremity weakness TECHNIQUE: Frontal and lateral views of the chest are obtained. FINDINGS: There is no focal air space opacity, pleural effusion, or pneumothorax seen. The cardiac silhouette size is upper limits of normal size. Low lung volumes. The osseous structures are intact. IMPRESSION: Hypoventilatory lungs with no acute cardiopulmonary process.
[2020-03-05 13:30] LABS: INR 1.1 (<1.2)
[2020-03-05 13:58] LABS: Appearance,Urine Clear (Clear); Bilirubin,Urine Negative (Negative); Blood,Urine Negative (Negative); Color,Urine Yellow; Glucose,Urine (UA) 4+ (Negative); Hyaline Casts,Urine 6 /lpf (0-2); Ketones,Urine Trace (Negative); Leukocyte Esterase,Urine Negative (Negative); Mucus,Urine Many /hpf; Nitrite,Urine Negative (Negative); PH, Urine 5.5 (5.0-8.0); Protein,Urine 1+ (Negative); RBC,Urine <1 /hpf (0-5); Specific Gravity,Urine 1.024 (1.001-1.035); Squamous Epithelial Cell,Urine <1 /hpf (0-4); Urobilinogen,Urine <2.0 mg/dL (<2.0); WBC,Urine 2 /hpf (0-5)
--- NOTE | 2020-03-05 17:28 | CT ---
EXAMINATION TYPE: CT brain wo con DATE OF EXAM: 03/05/2020 COMPARISON: 10/10/2015 HISTORY: Leg weakness today. CT DLP: 1094.[address] of the brain was performed. The ventricles, basal cisterns and sulci overlying the cerebral convexities demonstrate moderate enla rgement. There is no evidence for intracranial hemorrhage or sulcal effacement. There is decreased attenuation about the periventricular white matter and deep white matter of both c erebral hemispheres, compatible with chronic small vessel ischemia. Differential diagnosis does inclu de demyelination. No mass effects are seen.No midline shift. Osseous calvarium is intact. If symptoms persist consider MRI. IMPRESSION: 1. Age related atrophic and chronic small vessel ischemic change without acute intracranial process s een at this time.
[2020-03-05] MEDS ORDERED: NALOXONE 0.4 MG/ML 1 ML VIAL IV PRN (18:25)
[2020-03-05] MEDS ORDERED: ONDANSETRON 4 MG/2 ML VIAL IVP PRN (18:25)
[2020-03-05] MEDS ORDERED: ALPRAZolam 0.25 MG TAB PO PRN (18:25)
[2020-03-05] MEDS: SODIUM CHLORIDE 0.9% 1,000 ML IV SCH (19:38)
[2020-03-05 20:40] LABS: Glucose,Whole Blood 186 mg/dL (75-99)
--- NOTE | 2020-03-05 20:41 | P.HPIM ---
History of Present Illness H&P Date: 03/05/20 (Unable to move his left sided with weakness.) Chief Complaint: Complaining of weakness in his left upper and lower extremities with inabil This is admission history and physical dictation by Dr. la, Patient followed by ambulance to the emergency room. 79 years old he had history and the past of CVA and Parkinson's disease. Patient complained of weakness on his left upper extremity and lower extremities and with the history of previous stroke patient underwent computed tomography scan in the emergency room however was negative. Patient has increased weakness of his left leg with the unusual presentation to the patient. Patient attempts to go to the bathroom and he fell weakness which is progressive in the left leg and left arm and fell on the floor. Patient s ubsequently brought by ambulance to the ER at [facility]. Patient denied any fever or chills or vision changes no other symptoms he is able to speak and to swallow and eat however he has Parkinson disease with difficulties of coordinating his complex movement he denied chest pain or shortness of breath or fever or chills. No abdominal pain no nausea no vomiting no diarrhea no GI symptoms. Past medical history: Diabetes mellitus,2, Parkinson disease or stated by Dr. Antonio Magaña. Hypertension which is with the excitement slightly elevated with the possibility and new stroke., He has IV disorder bilateral cataract removed CVA was 2014. Hernia repair Bowel obstruction as baby. History of colonoscopy. He is a smoker daily Family history asthma, cancer, congestive heart failure, CVA and TIA Mother history of congestive heart failure diabetes mellitus. Problem list he had underlying #1 benign prostatic hyperplasia without lower urinary tract symptoms. #2 cardiac bathroom. History of hemiplegia on specific Oscar site. Hypothyroidism. Parkinson disease. History of TIAs without residual effect. External hearing aid. History of tachycardia. Tobacco use. Diabetes mellitus2 without complication. Tremors secondary to Parkinson disease. Unilateral inguinal hernia without obstruction or gangrene. Social history: Patient is has 2 daughters and 1 son. Caffeine one cup per day Alcohol use is occasionally. Tobacco use H tobacco started at age of 17 and he was at 10. A week but he never smoked. ALLERGY anion. Medication active: Toprol-XL 25 mg tablet extended release. Fluticasone nasal spray 50 g failure inhalation spray he uses it each nostril once daily twice a day. Phenylbutazone 30 mg tablet once daily. [place] 0.4 mg by mouth twice a day Glipizide 10 mg 1 tablet twice a day Atorvastatin 20 mg at at bedtime Aspirin 81 mg twice a day Levothyroxine 75 g once a day Sinemet 25 mg100 mg 4 times a day. Metformin 500 mg twice a day from Dr. Peterson on the. Review of system: Neuropsychiatry: He had acute event of left sided weakness with an acute onset started last night with no falling down. Inability to stand up or walk. He has also tremors secondary to the Parkinson disease, he had history of CVA however the CAT scan done in the ER did not indicate that. Cardiovascular no palpitation no history of valve replacement and pacemaker. But the patient has no more on the apex and left sternal border. 12/08. Chest no complaint no angina no chest pain GI no symptoms. no troubling symptoms with a history of benign prostatic hypertrophy. Endocrine diabetes mellitus type 2 as well as hyperparathyroidism. He was able to ambulate as he was seen in to 04/21/2020 in the office and he had no symptoms at that time Reviewed the 14 platelet and no added to the current review of system. Patient had echocardiogram on 10/10/2015: Indicate sinus rhythm with ejection fraction of 50-55, mild concentric hypertrophy, mild aortic valvular sclerosis without stenosis, mild mitral regurgitation, tricuspid regurgitation, Carotid duplex study dated 10/10/2015 no significant hemodynamic stenosis with the presence of atherosclerosis bilaterally. Physical exam: Patient is conscious alert oriented unable to move his left side. His initial CAT scan was negative. He able to state and has difficulties with using his hand to eat appropriately. He could not sit on the bed in the emergency room still and all was backward falling. 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 Inability to stand up or WALK with falling to the left side. His reflexes unequivocal normal on the right upper and lower extremities. No head was normocephalic and atraumatic, pupil is equal reactive, conjunctivae was pink, sclera nonicteric. Oropharynx natural teeth uvula midline. Mild hearing deficit. External hearing aid. Neck was supple no JVD no thyromegaly no lymphadenopathy trachea midline. Chest: Clear to auscultation and percussion no wheezes nor rhonchi's. Heart: PMI in the fifth intercostal space outside midclavicular line normal S1 and S2 normal, there is murmur grade 2/6 on the left sternal border and apex with a history of mitral regurg and tricuspid regurg. Abdomen: Soft positive bowel sound no organ enlargement. Genitourinary is normal Extremities positive pulses bilateral and symmetric. With weakness with lianna bility to lift his leg. And abnormal reflexes. Laboratory: Indicating on admission had lactic acidosis 2.3 with the hydration went down to 1.9. Cardiac testing was negative and EKG was normal sinus rhythm with first degree AV block, chest x-ray was negative and CAT scan was not indicating any strokes Clinical symptoms is suspicious of new development with Advair right CVA and left hemiparesis. Diabetes mellitus uncontrolled with the urine indicating ketone as well hyper glycemia with glycosuria. Us Assessment Acute onset with the left sided weakness and possibility of right CVA. Diabetes mellitus type 2 uncontrolled with the underlying lying lactic acid elevation. Hypertension secondary that patient did not take any medication today Parkinson disease with probably not well controlled Hypothyroidism. Gait disturbance. Plan patient hydrated, we'll proceed for MRI of the brain, consultation with the neurology Dr. May who is neurologist for this week monitoring the blood sugar. Stopped metformin and stop pioglitazone and stop glipizide. Start insulin basal and on the current sclerae as scale for CABG 3 times a day as well as Levemir basal small doses and gradually increase according to the patient reaction. Hypoglycemic protocol. 4 for evaluation depend on the results of the neurologist and the patient out, and patient placed on observation. Past Medical History Past Medical History: CVA/TIA, Diabetes Mellitus, Eye Disorder, Neurologic Disorder, Prostate Disorder, Thyroid Disorder Additional Past Medical History / Comment(s): PARKINSON'S. BILAT CATARACTS. [id number] LEFT SIDE History of Any Multi-Drug Resistant Organisms: None Reported Past Surgical History: Hernia Repair Additional Past Surgical History / Comment(s): bowel obstruction as a baby. COLONOSCOPY. Past Anesthesia/Blood Transfusion Reactions: No Reported Reaction Past Psychological History: No Psychological Hx Reported Smoking Status: Current every day smoker - Past Family History Father Family Medical History: Asthma, Cancer, Congestive Heart Failure (CHF), CVA/TIA Mother Family Medical History: Congestive Heart Failure (CHF), Diabetes Mellitus Medications and Allergies Home Medications Medication Instructions Recorded Confirmed Type glipiZIDE [Glucotrol] 10 mg PO BID 10/10/15 03/05/20 History Aspirin [Adult Low Dose Aspirin EC] 81 mg PO BID 06/20/19 03/05/20 History Carbidopa-Levodopa 25-100 mg 1 tab PO QID 06/20/19 03/05/20 History [Sinemet 25-100] Glucosamine/MSM/Chrond/D3/Bosw 1 tab PO DAILY 06/20/19 03/05/20 History [[id number] Cplt] Levothyroxine Sodium [Synthroid] 75 mcg PO DAILY 06/20/19 03/05/20 History Multivitamins, Thera [Multivitamin 1 each PO DAILY 06/20/19 03/05/20 History (formulary)] Occuvite 1 tab PO DAILY 06/20/19 03/05/20 History Pioglitazone [Actos] 30 mg PO DAILY 06/20/19 03/05/20 History Tamsulosin [Flomax] 0.4 mg PO BID 06/20/19 03/05/20 History metFORMIN HCL 1,000 mg PO AC-BRKFST 06/20/19 03/05/20 History metFORMIN HCL 1,500 mg PO AC-SUPPER 06/20/19 03/05/20 History Metoprolol Succinate (ER) [Toprol 25 mg PO DAILY 03/05/20 03/05/20 History Xl] Allergies Allergy/AdvReac Type Severity Reaction Status Date / Time No Known Allergies Allergy Verified 03/05/20 14:37 Physical Exam Vitals: Vital Signs Temp Pulse Resp BP Pulse Ox 03/05/20 18:10 98.9 F 73 18 156/85 97 03/05/20 14:49 97 18 158/70 95 03/05/20 13:07 82 18 151/85 95 03/05/20 12:36 99.5 F 89 20 148/84 96 Intake and Output 03/05/20 03/05/20 03/05/20 06:59 14:59 22:59 Other: Weight 91.626 kg Results CBC & Chem 7: 03/05/20 12:45 03/05/20 12:45 Labs: Abnormal Lab Results - Last 24 Hours (Table) 05/04/20 05/04/20 05/04/20 Range/Units 12:45 12:45 12:45 RBC 4.29 L (4.30-5.90) m/uL BUN 22 H (9-20) mg/dL Glucose 181 H (74-99) mg/dL Plasma Lactic Acid Jamari 2.3 H* (0.7-2.0) mmol/L Urine Protein (Negative) Urine Glucose (UA) (Negative) Urine Ketones (Negative) Hyaline Casts (0-2) /lpf Urine Mucus (None) /hpf 03/05/20 Range/Units 13:45 RBC (4.30-5.90) m/uL BUN (9-20) mg/dL Glucose (74-99) mg/dL Plasma Lactic Acid Jamari (0.7-2.0) mmol/L Urine Protein 1+ H (Negative) Urine Glucose (UA) 4+ H (Negative) Urine Ketones Trace H (Negative) Hyaline Casts 6 H (0-2) /lpf Urine Mucus Many H (None) /hpf
[2020-03-05] MEDS: LEVOTHYROXINE 75 MCG TAB PO SCH (21:50)
[2020-03-05] MEDS: METOPROLOL SUCCINATE (ER) 25 MG TAB.ER.24H PO SCH ×2 (21:54→22:08)
[2020-03-05] MEDS: ASPIRIN 81 MG PO SCH (21:56)
[2020-03-05] MEDS: TAMSULOSIN 0.4 MG CAP.ER.24H PO SCH (21:56)
[2020-03-05] MEDS: CARBIDOPA-LEVODOPA 25-100 MG 1 EACH TAB PO SCH (21:56)
[2020-03-05] MEDS: INSULIN DETEMIR (LEVEMIR) 100 UNIT/ML SYR SQ SCH (21:57)
[2020-03-06 06:04] LABS: Basophils # (A) 0.1 k/uL (0-0.2); Basophils % (A) 1 %; Eosinophils # (A) 0.2 k/uL (0-0.7); Eosinophils % (A) 3 %; HCT 37.5 % (39.0-53.0); HGB 11.7 gm/dL (13.0-17.5); Lymphocytes # (A) 1.5 k/uL (1.0-4.8); Lymphocytes % (A) 23 %; MCH 30.6 pg (25.0-35.0); MCHC 31.3 g/dL (31.0-37.0); MCV 97.7 fL (80.0-100.0); Mean Platelet Volume 8.4; Monocytes # (A) 0.5 k/uL (0-1.0); Monocytes % (A) 7 %; Neutrophils # (A) 4.2 k/uL (1.3-7.7); Neutrophils % (A) 63 %; Platelet Count 172 k/uL (150-450); RBC 3.83 m/uL (4.30-5.90); RDW 13.7 % (11.5-15.5); WBC 6.7 k/uL (3.8-10.6)
[2020-03-06 06:22] LABS: Glucose,Whole Blood 95 mg/dL (75-99)
[2020-03-06 06:23] LABS: African American GFR (CKD) >90 (>60 ml/min/1.73 sqM); Anion Gap 4 mmol/L; Blood Urea Nitrogen 22 mg/dL (9-20); Calcium 8.9 mg/dL (8.4-10.2); Carbon Dioxide 27 mmol/L (22-30); Chloride 109 mmol/L (98-107); Glucose 99 mg/dL (74-99); Non-African American GFR(CKD) 90 (>60 ml/min/1.73 sqM); Potassium 3.9 mmol/L (3.5-5.1); Sodium 140 mmol/L (137-145)
[2020-03-06] MEDS: INSULIN DETEMIR (LEVEMIR) 100 UNIT/ML SYR SQ SCH ×2 (07:03→20:49)
[2020-03-06] MEDS: LEVOTHYROXINE 75 MCG TAB PO SCH (07:05)
[2020-03-06] MEDS: INSULIN ASPART (NovoLOG) 100 UNIT/ML VIAL SQ SCH ×3 (07:06→17:36)
[2020-03-06] MEDS: SODIUM CHLORIDE 0.9% 1,000 ML IV SCH ×2 (09:35→20:49)
[2020-03-06] MEDS: CARBIDOPA-LEVODOPA 25-100 MG 1 EACH TAB PO SCH ×4 (09:35→20:49)
[2020-03-06] MEDS: ASPIRIN 81 MG PO SCH ×2 (09:35→20:49)
[2020-03-06] MEDS: TAMSULOSIN 0.4 MG CAP.ER.24H PO SCH ×2 (09:36→20:49)
[2020-03-06] MEDS: MULTIVITAMINS, THERA 1 EACH TAB PO SCH (09:36)
[2020-03-06] MEDS ORDERED: CLOPIDOGREL 75 MG TAB PO STA (11:43)
--- NOTE | 2020-03-06 11:50 | MR ---
EXAMINATION TYPE: MR brain and iac wo/w con DATE OF EXAM: 03/06/2020 11:32 AM COMPARISON: NONE HISTORY: New CVA, left hemiparesis, new stroke on the right, gait issues, weakness CONTRAST: Patient received 10 mL intravenous Gadavist gadolinium contrast. Multiplanar and multispin-echo imaging of the brain and IAC was performed . Pre and post contrast en hanced images are obtained. The ventricles, basal cisterns and sulci overlying the cerebral convexities are moderately enlarged. There is evidence of mild to moderate periventricular white matter ischemic demyelination. Remote deep white matter insults are also noted. Small focus of acute edema is identified within the right portion of the micki. Suspect small vascular insult. There is no evidence for midline shift or mass effect. Acute intracranial hemorrhage or extra-axial collection is not evident. High-resolution imaging of the internal auditory canals fails demonstrate evidence for an enhancing a coustic schwannoma or cerebellopontine cistern angle mass. Following contrast administration, there is no evidence for pathologic enhancement or enhancing mass. The paranasal sinuses and mastoid air cells are well-aerated. IMPRESSION: Age-related atrophic and chronic small vessel ischemic change. Small focus of acute edema is identif ied within the right portion of the micki. Suspect small vascular insult. No enhancing lesions are se en.
[2020-03-06 11:52] LABS: Glucose,Whole Blood 151 mg/dL (75-99)
[2020-03-06] MEDS: FAMOTIDINE 20 MG TAB PO SCH ×2 (12:20→20:48)
--- NOTE | 2020-03-06 12:49 | P.PN ---
Subjective Progress Note Date: 03/06/20 (Left-sided weakness upper and lower extremities) Principal diagnosis: #1 acute right-sided micki stroke by MRI. Associated with weakness of the left upper and lower extremities and walking disability and fall at home in the bathroom. #2 diabetes mellitus type 2 uncontrolled with lactic acidosis. #3 lactic acidosis resolved with the discontinuation of metformin and pioglitazone and glipizide, currently on insulin. Basal as well short-acting 3 times a day before meals meals. #4 hypothyroidism controlled with the current medication. #5 Parkinson disease. #6 hyper lipidemia. Progress note 03/06/2020 Patient seen and evaluated Discussed with Dr. stephen the neurologist Patient had right micki stroke by the MRI. With the Acute sudden events will repeat echocardiogram to rule out PFO with the presence of murmur, also carotid duplex study, and consult cardiology, and consulted rehabilitation for rehab. Dr. May started him on Plavix with loading dose 300 mg and followed by 75 mg daily. Patient is conscious alert and not confused, able to eat and swallow could not sit up or stand up or walk. Able to communicate and discussed his problem with him and he is fully underst anding. On the physical exam: No new changes HEENT was negative in the head was normocephalic atraumatic and the pupil equal reactive monoxide was faint sclera was nonicteric Oropharynx is normal able to swallow [place] is normal natural teeth no fascial asymmetry. Neck was supple no lymphadenopathy Chest clear to auscultation and percussion Heart positive normoactive on left sternal border as well his apex with the new stroke we tried to rule out PFO and a cardiology consultation was requested. Abdomen soft positive bowel sounds no tenderness in the 4 quadrants. Extremities no edema. Pulses and he is able to move his right lower extremities and the right upper extremities but weakness on the left lower extremities and left upper extremities. Neurologically stable and seen by the neurologist today. Assessment and plan: #1 consult cardiology for evaluation with the questionable PFO. And evaluation of the cardiac status with [place]. #2 echocardiogram and carotid duplex study to complete the evaluation and his last testing was in 2015/years ago. #3 rehabilitation consultation #4 continue medication for Parkinson disease. #5 continue medication is Plavix as Dr. May the neurologist has been. #6 change his status from observation to full admission with the presence of stroke Objective - Vital Signs Vital signs: Vital Signs Temp 97.9 F 03/06/20 08:00 Pulse 62 03/06/20 11:51 Resp 16 03/06/20 11:51 BP 147/71 03/06/20 11:51 Pulse Ox 97 03/06/20 11:51 Intake & Output 03/05/20 03/06/20 03/06/20 18:59 06:59 18:59 Intake Total 240 Output Total 50 Balance -50 240 Weight 91.626 kg 94.5 kg Intake: Oral 240 Output: Urine 50 Other: Voiding Method Urinal Incontinent # Voids 2 # Bowel Movements 1 - Labs CBC & Chem 7: 03/06/20 05:49 03/06/20 05:49 Labs: Abnormal Lab Results - Last 24 Hours (Table) 03/05/20 03/05/20 03/05/20 Range/Units 12:45 12:45 12:45 RBC 4.29 L (4.30-5.90) m/uL Hgb (13.0-17.5) gm/dL Hct (39.0-53.0) % Chloride (98-107) mmol/L BUN 22 H (9-20) mg/dL Glucose 181 H (74-99) mg/dL POC Glucose (mg/dL) (75-99) mg/dL Plasma Lactic Acid Jamari 2.3 H* (0.7-2.0) mmol/L Urine Protein (Negative) Urine Glucose (UA) (Negative) Urine Ketones (Negative) Hyaline Casts (0-2) /lpf Urine Mucus (None) /hpf 03/05/20 03/05/20 03/06/20 Range/Units 13:45 20:38 05:49 RBC 3.83 L (4.30-5.90) m/uL Hgb 11.7 L (13.0-17.5) gm/dL Hct 37.5 L (39.0-53.0) % Chloride (98-107) mmol/L BUN (9-20) mg/dL Glucose (74-99) mg/dL POC Glucose (mg/dL) 186 H (75-99) mg/dL Plasma Lactic Acid Jamari (0.7-2.0) mmol/L Urine Protein 1+ H (Negative) Urine Glucose (UA) 4+ H (Negative) Urine Ketones Trace H (Negative) Hyaline Casts 6 H (0-2) /lpf Urine Mucus Many H (None) /hpf 03/06/20 03/06/20 Range/Units 05:49 11:50 RBC (4.30-5.90) m/uL Hgb (13.0-17.5) gm/dL Hct (39.0-53.0) % Chloride 109 H (98-107) mmol/L BUN 22 H (9-20) mg/dL Glucose (74-99) mg/dL POC Glucose (mg/dL) 151 H (75-99) mg/dL Plasma Lactic Acid Jamari (0.7-2.0) mmol/L Urine Protein (Negative) Urine Glucose (UA) (Negative) Urine Ketones (Negative) Hyaline Casts (0-2) /lpf Urine Mucus (None) /hpf
--- NOTE | 2020-03-06 14:04 | US ---
EXAMINATION TYPE: US carotid duplex BILAT DATE OF EXAM: 03/06/2020 COMPARISON: CLINICAL HISTORY: Stroke,acute carotid artery disease. EXAM MEASUREMENTS: RIGHT: Peak Systolic Velocity (PSV) cm/sec ----- Right CCA: 89.9 ----- Right ICA: 95.0 ----- Right ECA: 127.9 ICA/CCA ratio: 1.1 RIGHT: End Diastole cm/sec ----- Right CCA: 6.4 ----- Right ICA: 8.3 ----- Right ECA: 0.0 LEFT: Peak Systolic Velocity (PSV) cm/sec ----- Left CCA: 82.7 ----- Left ICA: 75.7 ----- Left ECA: 112.9 ICA/CCA ratio: 0.9 LEFT: End Diastole cm/sec ----- Left CCA: 8.9 ----- Left ICA: 16.4 ----- Left ECA: 0.0 VERTEBRALS (direction of flow): Right Vertebral: Antegrade Left Vertebral: Antegrade Rhythm: Normal IMPRESSION: Bilateral wall thickening. No elevated velocities or significant stenosis. Plaque seen anterior mid right CCA. Criteria for Assigning % of Stenosis / Diameter reduction (Estimation based on the indirect measurements of the internal carotid artery velocities (ICA PSV). 1. Normal (no stenosis)=ICA PSV < 125 cm/s: ratio < 2.0: ICA EDV<40 cm/s. 2. Less than 50% stenosis=ICA PSV < 125 cm/s: ratio < 2.0: ICA EDV<40 cm/s. 3. 50 to 69% stenosis=ICA PSV of 125 to 230 cm/s: ration 2.0 ? 4.0: ICA EDV 40-100 cm/s. 4. Greater than 70% stenosis to near occlusion= ICA PSV > 230 cm/s: ratio > 4.0: ICA EDV > 100 cm/s. 5. Near occlusion= ICA PSV velocities may be low or undetectable: variable ratio and ICA EDV. 6. Total occlusion=unable to detect flow.
[2020-03-06 14:45] LABS: Hemoglobin A1C 7.6 % (4.0-6.0)
[2020-03-06 17:36] LABS: Glucose,Whole Blood 185 mg/dL (75-99)
--- NOTE | 2020-03-06 18:33 | P.CNNES ---
History of Present Illness Consult date: 03/06/20 Requesting physician: Adam Sherman Reason for Consult: Left lower extremity weakness, history of CVA History of Present Illness: Patient is a 79-year-old male with history of CVA and Parkinson's present to the hospital due to weakness. Patient has mild left-sided deficits from previous stroke. Patient states that he was noticing increased weakness in his left leg more than usual. Patient arrived to the ER yesterday at 12:07 AM. Patient tells me that on 03/04/2020, at 9:30 PM he was going to the restroom, when he noticed left knee became weak. He went down, and lowered himself to the ground, did not fall or hit himself. He was unable to get up by himself. His helped him get up. He laid down in the bed. As his symptoms persisted, he decided to come to the ER. Patient arrived to the ER at 12:07 AM. Patient mentioned in the ER that his left leg weakness have been present for 2 days, therefore was probably not a candidate for TPA. Patient blood pressure on arrival was 148/84, pulse rate 89 and temperature 99.5. Patient underwent CT head, which showed age-related atrophic and chronic small vessel ischemic change without acute intracranial process seen at this time. Chest x-ray showed hypoventilatory lungs with no acute cardiopulmonary process. EKG showed sinus rhythm with first-degree AV block. Patient's last hemoglobin A1c 7.6 on 01/02/2020. Patient's cholesterol is 114, LDL 54.4, HDL 40 and triglycerides 98. Liver panel, electrolytes, hepatic panel are normal. PT/PTT normal. Patient's previous MRI of the brain from 10/10/2015 showed evidence of an acute right posterior internal capsular Ischemic CVA, Likely Lacunar. Patient has history of diabetes for 10 years. Patient does take aspirin 81 mg twice a day and is compliant with the medication. Patient denies tobacco use. Patient states that since his last stroke in 2014, his balance is not the best, but he does not fall. He does not use any device otherwise. Review of Systems Patient denies any headache problem with the vision hoarseness or stroke or dysphagia. Denies any chest pain shortness of breath wheezing cough. Denies abdominal pain nausea vomiting diarrhea. Patient does have some foul-smelling urine. All other review of systems unremarkable. Past Medical History Past Medical History: CVA/TIA, Diabetes Mellitus, Eye Disorder, Neurologic Disorder, Prostate Disorder, Thyroid Disorder Additional Past Medical History / Comment(s): PARKINSON'S. BILAT CATARACTS. [id number] LEFT SIDE History of Any Multi-Drug Resistant Organisms: None Reported Past Surgical History: Hernia Repair Additional Past Surgical History / Comment(s): bowel obstruction as a baby. COLONOSCOPY. Past Anesthesia/Blood Transfusion Reactions: No Reported Reaction Smoking Status: Unknown if ever smoked - Past Family History Father Family Medical History: Asthma, Cancer, Congestive Heart Failure (CHF), CVA/TIA Mother Family Medical History: Congestive Heart Failure (CHF), Diabetes Mellitus Medications and Allergies Home Medications Medication Instructions Recorded Confirmed Type glipiZIDE [Glucotrol] 10 mg PO BID 10/10/15 03/05/20 History Aspirin [Adult Low Dose Aspirin EC] 81 mg PO BID 06/20/19 03/05/20 History Carbidopa-Levodopa 25-100 mg 1 tab PO QID 06/20/19 03/05/20 History [Sinemet 25-100] Glucosamine/MSM/Chrond/D3/Bosw 1 tab PO DAILY 06/20/19 03/05/20 History [Zlfaoxmbtga-Pjjsny-LJX-D3 Cplt] Levothyroxine Sodium [Synthroid] 75 mcg PO DAILY 06/20/19 03/05/20 History Multivitamins, Thera [Multivitamin 1 each PO DAILY 06/20/19 03/05/20 History (formulary)] Occuvite 1 tab PO DAILY 06/20/19 03/05/20 History Pioglitazone [Actos] 30 mg PO DAILY 06/20/19 03/05/20 History Tamsulosin [Flomax] 0.4 mg PO BID 06/20/19 03/05/20 History metFORMIN HCL 1,000 mg PO AC-BRKFST 06/20/19 03/05/20 History metFORMIN HCL 1,500 mg PO AC-SUPPER 06/20/19 03/05/20 History Metoprolol Succinate (ER) [Toprol 25 mg PO DAILY 03/05/20 03/05/20 History Xl] Allergies Allergy/AdvReac Type Severity Reaction Status Date / Time No Known Allergies Allergy Verified 03/05/20 14:37 Physical Examination - Vital Signs Vital Signs: Vital Signs Temp Pulse Pulse Resp BP BP Pulse Ox 03/06/20 08:00 97.9 F 73 16 133/86 96 03/06/20 04:00 98.1 F 60 16 117/61 94 L 03/06/20 00:30 98 F 84 18 150/74 95 03/06/20 00:00 98.2 F 71 16 134/67 95 03/05/20 20:02 98.8 F 77 18 146/94 99 03/05/20 18:10 98.9 F 73 18 156/85 97 03/05/20 14:49 97 18 158/70 95 03/05/20 13:07 82 18 151/85 95 03/05/20 12:36 99.5 F 89 20 148/84 96 Intake and Output 03/05/20 03/06/20 03/06/20 22:59 06:59 14:59 Intake Total 240 Output Total 50 Balance -50 240 Intake: Oral 240 Output: Urine 50 Other: Voiding Method Urinal Incontinent # Voids 1 2 # Bowel Movements 1 Weight 94.5 kg On examination patient is an elderly male, in no acute distress. He is alert awake oriented to time place and person. Speech and language functions are normal. Attention and concentration fund of knowledge is adequate. On cranial nerve examination pupils are round and reactive to light, visual poole are full on confrontation, extraocular muscles are intact with no nystagmus. Face is symmetric and tongue protrudes slightly to the left. On muscle strength testing, patient has mild left pronator drift. Strength is completely normal in the right arm and right leg. Strength is also completely normal in the left deltoid, biceps, triceps knees and ankles. His left gyroscope technician is 5-, and left hip flexion also 5-as compared to the right side. Sensory touch is equal with no neglect on double simultaneous stimulation. Patient has ataxia for [id number]-[id number]-mi se and [id number]-[id number] testing on the left side. Tone and bulk of muscles normal. Patient walked with a walker and appeared very unsteady. These no obvious bruit, S1 and S2 audible, peripheral pulses present. No edema. Abdomen soft nontender. Results - Laboratory Findings CBC and BMP: 03/06/20 05:49 03/06/20 05:49 Abnormal Lab Findings: Abnormal Labs 03/05/20 03/05/20 03/05/20 12:45 12:45 12:45 RBC 4.29 L Hgb Hct Chloride BUN 22 H Glucose 181 H POC Glucose (mg/dL) Plasma Lactic Acid Jamari 2.3 H* Urine Protein Urine Glucose (UA) Urine Ketones Hyaline Casts Urine Mucus 03/05/20 03/05/20 03/06/20 13:45 20:38 05:49 RBC 3.83 L Hgb 11.7 L Hct 37.5 L Chloride BUN Glucose POC Glucose (mg/dL) 186 H Plasma Lactic Acid Jamari Urine Protein 1+ H Urine Glucose (UA) 4+ H Urine Ketones Trace H Hyaline Casts 6 H Urine Mucus Many H 03/06/20 05:49 RBC Hgb Hct Chloride 109 H BUN 22 H Glucose POC Glucose (mg/dL) Plasma Lactic Acid Jamari Urine Protein Urine Glucose (UA) Urine Ketones Hyaline Casts Urine Mucus Assessment and Plan Assessment: * Patient just underwent an MRI of the brain, which revealed an acute ischemic infarction in the right micki. Likely from small vessel disease. His current an NIH stroke scale is about 3. * Hypertension * Diabetes * Previous history of right internal capsular stroke in 2014 with no significant residual focal deficits although balance was somewhat affected. Plan: * Patient has mild focal deficits at this time. To prevent further progression, patient was given a loading dose of Plavix 300 mg. * Patient will be placed on dual antiplatelet medications. * Carotid Doppler revealed bilateral wall thickening. No elevated velocities or significant stenosis. Plaque seen anteriorly mid right CCA. * Await 2-D echo. * Permissible hypertension for 24-48 hours. * Pepcid 20 mg twice a day for gastric ulcer prophylaxis. * PT OT. * Consider physical medicine and rehabilitation consultation.
[2020-03-06 20:47] LABS: Glucose,Whole Blood 156 mg/dL (75-99)
[2020-03-07 06:07] LABS: Glucose,Whole Blood 118 mg/dL (75-99)
[2020-03-07] MEDS: INSULIN ASPART (NovoLOG) 100 UNIT/ML VIAL SQ SCH ×3 (06:25→17:16)
[2020-03-07] MEDS: INSULIN DETEMIR (LEVEMIR) 100 UNIT/ML SYR SQ SCH ×2 (06:49→20:45)
[2020-03-07] MEDS: LEVOTHYROXINE 75 MCG TAB PO SCH (06:49)
[2020-03-07] MEDS: ASPIRIN 81 MG PO SCH ×2 (08:14→20:45)
[2020-03-07] MEDS: FAMOTIDINE 20 MG TAB PO SCH ×2 (08:14→20:46)
[2020-03-07] MEDS: MULTIVITAMINS, THERA 1 EACH TAB PO SCH (08:14)
[2020-03-07] MEDS: CARBIDOPA-LEVODOPA 25-100 MG 1 EACH TAB PO SCH ×4 (08:14→20:45)
[2020-03-07] MEDS: TAMSULOSIN 0.4 MG CAP.ER.24H PO SCH ×2 (08:14→20:45)
[2020-03-07] MEDS: METOPROLOL SUCCINATE (ER) 25 MG TAB.ER.24H PO SCH ×2 (10:26→11:24)
[2020-03-07] MEDS ORDERED: METOPROLOL SUCCINATE (ER) 25 MG TAB.ER.24H PO SCH ×2 (10:30→21:00)
--- NOTE | 2020-03-07 10:47 | P.CRDCN ---
History of Present Illness History of present illness: This is Latoya Kebede PA-C scribing on behalf of Dr. Mishra The patient was interviewed and examined by Dr. Mishra HPI Patient is a 79-year-old male with a history of CVA with residual left-sided weakness, diabetic, and Parkinson's disease who presented with complaints of worsening left lower extremity weakness. he got up to use the bathroom and noted his legs were weak. He denies any palpitations, dizziness, syncope. No chest pain or shortness of breath. Upon admission blood pressure was 148/84. EKG upon admission shows sinus mechanism with mildly prolonged IA. CT of the brain shows age-related atrophic and chronic small vessel ischemic change without any process. Brain MRI shows age-related atrophic and chronic small vessel ischemic disease, small focus of acute edema identified within the right portion of the micki. Carotid Dopplers show bilateral wall thickening, plaque seen in the anterior mid right CCA, no elevated velocities or significant stenosis. Patient has been admitted for further workup and treatment. No arrhythmias have been noted on telemetry. Patient was seen and examined by Dr. Mishra this morning. Continues to deny any cardiac symptoms. No palpitations, dizziness, chest pain or shortness of breath. ROS: No fevers, chills or rigors, no cough, phlegm or expectoration, no nausea, vomiting or diarrhea, no hematuria, dysuria, positive for LE weakness positive for history of stroke no skin lesions. EXAMINATION: Patient is afebrile, pulse in the 60s, respirations 16, blood pressure 171/76, oxygen saturation 96% on room air Patient seen and examined by Dr. Mishra Patient is in no acute distress, appears comfortable Lungs clear to auscultation bilaterally Heart is regular, no audible murmurs No JVD No lower extremity edema REVIEW OF LABS, ECG & MEDICAL DATA WBC 6.7, hemoglobin 11.7, platelets 172, potassium 3.9, BUN 22, creatinine 0.72 TSH within normal limits Troponin negative Coronavirus not detected IMPRESSION / ASSESSMENT: #1 symptoms of worsening left lower extremity weakness secondary to acute CVA of the right micki, neurology following #2 prior CVA with residual left-sided weakness #3 hypertension, blood pressure trending high #4 diabetes #5 Parkinson's disease PLAN: Obtain echocardiogram with Doppler and bubble study Obtain lipid panel start atorvastatin 40 mg daily Stop metoprolol and switch to losartan for hypertension management, may increase tomorrow depending on BP trends Continue to monitor telemetry for atrial fibrillation, if workup does not reveal any clear-cut causes for the stroke, may consider loop monitor implantation Past Medical History Past Medical History: CVA/TIA, Diabetes Mellitus, Eye Disorder, Neurologic Disorder, Prostate Disorder, Thyroid Disorder Additional Past Medical History / Comment(s): PARKINSON'S. BILAT CATARACTS. [id number] LEFT SIDE History of Any Multi-Drug Resistant Organisms: None Reported Past Surgical History: Hernia Repair Additional Past Surgical History / Comment(s): bowel obstruction as a baby. COLONOSCOPY. Past Anesthesia/Blood Transfusion Reactions: No Reported Reaction Smoking Status: Unknown if ever smoked - Past Family History Father Family Medical History: Asthma, Cancer, Congestive Heart Failure (CHF), CVA/TIA Mother Family Medical History: Congestive Heart Failure (CHF), Diabetes Mellitus Medications and Allergies Home Medications Medication Instructions Recorded Confirmed Type glipiZIDE [Glucotrol] 10 mg PO BID 10/10/15 03/05/20 History Aspirin [Adult Low Dose Aspirin EC] 81 mg PO BID 06/20/19 03/05/20 History Carbidopa-Levodopa 25-100 mg 1 tab PO QID 06/20/19 03/05/20 History [Sinemet 25-100] Glucosamine/MSM/Chrond/D3/Bosw 1 tab PO DAILY 06/20/19 03/05/20 History [Ksrhiobkncl-Pcaqqz-ZUH-D3 Cplt] Levothyroxine Sodium [Synthroid] 75 mcg PO DAILY 06/20/19 03/05/20 History Multivitamins, Thera [Multivitamin 1 each PO DAILY 06/20/19 03/05/20 History (formulary)] Occuvite 1 tab PO DAILY 06/20/19 03/05/20 History Pioglitazone [Actos] 30 mg PO DAILY 06/20/19 03/05/20 History Tamsulosin [Flomax] 0.4 mg PO BID 06/20/19 03/05/20 History metFORMIN HCL 1,000 mg PO AC-BRKFST 06/20/19 03/05/20 History metFORMIN HCL 1,500 mg PO AC-SUPPER 06/20/19 03/05/20 History Metoprolol Succinate (ER) [Toprol 25 mg PO DAILY 03/05/20 03/05/20 History Xl] Allergies Allergy/AdvReac Type Severity Reaction Status Date / Time No Known Allergies Allergy Verified 03/05/20 14:37 Physical Exam Vitals: Vital Signs Temp Pulse Resp BP Pulse Ox 03/07/20 08:00 97.6 F 66 16 171/76 96 03/07/20 05:02 98.0 F 59 L 16 136/74 96 03/07/20 00:21 61 16 150/74 95 03/06/20 20:53 98.2 F 62 16 153/74 95 03/06/20 15:02 70 16 138/69 95 03/06/20 11:51 62 16 147/71 97 Intake and Output 03/06/20 03/07/20 03/07/20 22:59 06:59 14:59 Intake Total 240 240 Output Total 150 200 Balance 90 -200 240 Intake: Oral 240 240 Output: Urine 150 200 Other: Voiding Method Urinal Urinal Urinal Incontinent Incontinent Incontinent # Voids 1 2 Weight 95 kg Results 03/06/20 05:49 03/06/20 05:49 Current Medications Generic Name Dose Route Start Last Admin Trade Name Freq PRN Reason Stop Dose Admin Alprazolam 0.25 mg 03/05/20 18:25 Xanax PO Q6HR PRN Anxiety Aspirin 81 mg 03/05/20 21:00 03/07/20 08:14 Aspirin PO 81 mg BID NAHEED Administration Carbidopa/Levodopa 1 each 03/05/20 22:00 03/07/20 08:14 Sinemet 25-100 PO 1 each QID NAHEED Administration Famotidine 20 mg 03/06/20 12:15 03/07/20 08:14 Pepcid PO 20 mg BID NAHEED Administration Sodium Chloride 1,000 mls @ 75 mls/hr 03/05/20 18:30 03/06/20 20:49 Saline 0.9% IV 75 mls/hr .[id number] NAHEED Administration Insulin Aspart 2 - 8 unit 03/06/20 07:30 03/07/20 06:25 Novolog SQ Not Given AC-TID [facility] Protocol Insulin Detemir 10 unit 03/06/20 07:00 03/07/20 06:49 Levemir SQ 10 unit DAILY@0700 NAHEED Administration Insulin Detemir 5 unit 03/05/20 21:00 03/06/20 20:49 Levemir SQ 5 unit HS NAHEED Administration Levothyroxine Sodium 75 mcg 03/05/20 19:45 03/07/20 06:49 Synthroid PO 75 mcg DAILY@0630 NAHEED Administration Metoprolol Succinate 25 mg 03/05/20 19:45 03/05/20 22:08 Toprol Xl PO 25 mg DAILY NAHEED Administration Multivitamins 1 each 03/06/20 09:00 03/07/20 08:14 Theragran PO 1 each DAILY NAHEED Administration Naloxone HCl 0.2 mg 03/05/20 18:25 Narcan IV Q2M PRN Opioid Reversal Ondansetron HCl 4 mg 03/05/20 18:25 Zofran IVP Q8HR PRN Nausea And Vomiting Tamsulosin HCl 0.4 mg 03/05/20 21:00 03/07/20 08:14 Flomax PO 0.4 mg BID NAHEED Administration Intake and Output 03/06/20 03/07/20 03/07/20 22:59 06:59 14:59 Intake Total 240 240 Output Total 150 200 Balance 90 -200 240 Intake: Oral 240 240 Output: Urine 150 200 Other: Voiding Method Urinal Urinal Urinal Incontinent Incontinent Incontinent # Voids 1 2 Weight 95 kg 03/06/20 05:49 03/06/20 05:49
[2020-03-07] MEDS: SODIUM CHLORIDE 0.9% 1,000 ML IV SCH ×2 (10:53→22:41)
--- NOTE | 2020-03-07 11:00 | ECHOF ---
Referral Reason:Rt. micki hagen R/o PFO MEASUREMENTS -------- HEIGHT: 177.8 cm WEIGHT: 94.3 kg BP: 147/71 RVIDd: 3.6 cm (< 3.3) IVSd: 1.4 cm (0.6 - 1.1) LVIDd: 4.3 cm (3.9 - 5.3) LVPWd: 1.3 cm (0.6 - 1.1) IVSs: 2.0 cm LVIDs: 2.4 cm LVPWs: 1.7 cm LA Diam: 3.3 cm (2.7 - 3.8) LAESV Index (A-L): 23.30 ml/m Ao Diam: 4.1 cm (2.0 - 3.7) AV Cusp: 2.2 cm (1.5 - 2.6) MV EXCURSION: 13.991 mm (> 18.000) MV EF SLOPE: 53 mm/s (70 - 150) EPSS: 0.8 cm MV E Goran: 0.96 m/s MV DecT: 196 ms MV A Goran: 0.96 m/s MV E/A Ratio: 1.01 RAP: 5.00 mmHg RVSP: 37.31 mmHg FINDINGS -------- Sinus rhythm. This was a technically good study. The left ventricular size is normal. There is moderate concentric left ventricular hypertrophy. O verall left ventricular systolic function is normal with, an EF between 60 - 65 %. The right ventricle is mildly enlarged. Normal LA size by volume 22+/-6 ml/m2. The right atrium is normal in size. Contrast study was performed with 2 iv injections of 8 ccs of agitated normal saline, at rest, and wi th cough. No PFO noted There is mild aortic valve sclerosis. Mild mitral regurgitation is present. Mild tricuspid regurgitation present. There is mild pulmonary hypertension. The right ventricular systolic pressure, as measured by Doppler, is 37.31mmHg. Trace/mild (physiologic) pulmonic regurgitation. The aortic root is dilated measuring 4.1cm. Normal inferior vena cava with normal inspiratory collapse consistent with estimated right atrial pre ssure of 5 mmHg. There is no pericardial effusion. CONCLUSIONS -------- 1. Sinus rhythm. 2. This was a technically good study. 3. The left ventricular size is normal. 4. There is moderate concentric left ventricular hypertrophy. 5. Overall left ventricular systolic function is normal with, an EF between 60 - 65 %. 6. The right ventricle is mildly enlarged. 7. Normal LA size by volume 22+/-6 ml/m2. 8. The right atrium is normal in size. 9. Contrast study was performed with 2 iv injections of 8 ccs of agitated normal saline, at rest, and with cough. 10. No PFO noted 11. There is mild aortic valve sclerosis. 12. Mild mitral regurgitation is present. 13. Mild tricuspid regurgitation present. 14. There is mild pulmonary hypertension. 15. The right ventricular systolic pressure, as measured by Doppler, is 37.31mmHg. 16. Trace/mild (physiologic) pulmonic regurgitation. 17. The aortic root is dilated measuring 4.1cm. 18. Normal inferior vena cava with normal inspiratory collapse consistent with estimated right atrial pressure of 5 mmHg. 19. There is no pericardial effusion. CLINICAL ACCOUNT SPECIALIST: Ban Wall RDCS
[2020-03-07 11:15] LABS: Glucose,Whole Blood 175 mg/dL (75-99)
[2020-03-07] MEDS: CLOPIDOGREL 75 MG TAB PO SCH (11:25)
--- NOTE | 2020-03-07 12:08 | P.PN ---
Subjective Progress Note Date: 03/07/20 (Future rehab at [facility].) Progress note date of service 03/07/[address] Jama. Patient seen today evaluated and discussed with his nurse Margaux COTE. Still blood pressure is elevated and cardiology did see the patient adjusted his medication and as well as he had a echocardiogram as well as carotid duplex study, he also monitored to rule out atrial fibrillation. He has developed a left facial abnormalities with the stroke as well as his weakness on the left lower extremities and left upper extremities still persistent with need for for further rehabilitation in the hospital and subsequently at [facility]. Patient able to eat and swallow and speak with understandable language He had positive Babinski on the left lower extremities and obvious weakness on the left side with the underlying hemiparesis. On the examination: Patient conscious alert oriented 3. No change on the examination of her swallowing or fascial except mild elevation of the angle of the mouth to the right with slight drooping on the left. Neck was supple no JVD no thyromegaly no didn't Chest is clear to auscultation and percussion Heart regular sinus rhythm with positive murmur as noted also by echocardiogram Abdomen is soft positive bowel sounds he had a BM yesterday. Extremities no edema positive pulses bilateral and symmetrical. Able to urinate normally. Assessment: #1 right sided micki stroke associated with right upper and lower extremities weakness and left facial abnormalities. #2 hypertension not controlled with the association with the stroke. #3 Parkinson disease. #4 diabetes mellitus poorly controlled with no complication patient on currently insulin with a history of lactic acidosis on admission lactic acid level was 2.3 with the hydration went down to 1.9 #5 hyperlipidemia. #6 hypothyroidism. Plan: #1 we'll continue adjustment #2 appreciated the cardiology and the neurology evaluation #3 after the inpatient rehab probably patient will be transferred to [facility] [place] [facility]. I did discuss it with his in detail on the phone. And currently continued rehabilitation and monitor. Objective - Vital Signs Vital signs: Vital Signs Temp 97.6 F 03/07/20 08:00 Pulse 62 03/07/20 11:25 Resp 16 03/07/20 08:00 BP 165/78 03/07/20 11:25 Pulse Ox 94 L 03/07/20 11:25 Intake & Output 03/06/20 03/07/2003/07/20 18:59 06:59 18:59 Intake Total 480 240 Output Total 350 Balance 480 -350 240 Weight 95 kg Intake: Oral 480 240 Output: Urine 350 Other: Voiding Method Urinal Urinal Urinal Incontinent Incontinent Incontinent # Voids 50 2 - Labs CBC & Chem 7: 03/06/20 05:49 03/06/20 05:49 Labs: Abnormal Lab Results - Last 24 Hours (Table) 03/06/20 03/06/20 03/06/20 Range/Units 05:49 17:30 20:45 POC Glucose (mg/dL) 185 H 156 H (75-99) mg/dL Hemoglobin A1c 7.6 H (4.0-6.0) % 03/07/20 03/07/20 Range/Units 06:06 11:14 POC Glucose (mg/dL) 118 H 175 H (75-99) mg/dL Hemoglobin A1c (4.0-6.0) %
[2020-03-07 13:46] LABS: Cholesterol 100 mg/dL (<200); HDL Cholesterol 38 mg/dL (40-60); LDL Cholesterol,Calculated 43 mg/dL (0-99); Triglycerides 97 mg/dL (<150)
[2020-03-07] MEDS: LOSARTAN 25 MG TAB PO SCH (14:41)
[2020-03-07 16:19] LABS: Glucose,Whole Blood 181 mg/dL (75-99)
--- NOTE | 2020-03-07 18:26 | P.PN ---
Subjective Progress Note Date: 03/07/20 Patient was seen for a follow-up. States no change. Still left side not under control. Telemetry showing sinus rhythm with PVCs. Patient states balance is not any better. Objective - Vital Signs Vital signs: Vital Signs Temp 97.6 F 03/07/20 08:00 Pulse 58 L 03/07/20 15:44 Resp 16 03/07/20 15:44 BP 134/64 03/07/20 15:44 Pulse Ox 93 L 03/07/20 15:44 Intake & Output 03/06/20 03/07/20 03/07/20 18:59 06:59 18:59 Intake Total 480 1245 Output Total 350 200 Balance 480 -350 1045 Weight 95 kg Intake: IV 525 Sodium Chloride 0.9% 1, 525 000 ml @ 75 mls/hr IV . [id number] NAHEED Rx#:[id number] Oral 480 720 Output: Urine 350 200 Other: Voiding Method Urinal Urinal Urinal Incontinent Incontinent Incontinent # Voids 50 2 1 - Exam Patient's mental status, speech and language functions are normal. Cranial nerves are normal. Muscle strength showed left pronator drift. Strength is normal in the upper extremities bilaterally. In the lower extremities the only weakness is left hip flexion which is 5-. Patient is ataxic for [id number] on the left. Sensations are equal. Gait deferred. - Labs CBC & Chem 7: 03/06/20 05:49 03/06/20 05:49 Labs: Abnormal Lab Results - Last 24 Hours (Table) 03/06/20 03/07/20 03/07/20 Range/Units 20:45 06:06 10:39 POC Glucose (mg/dL) 156 H 118 H (75-99) mg/dL HDL Cholesterol 38 L (40-60) mg/dL 03/07/20 03/07/20 Range/Units 11:14 16:13 POC Glucose (mg/dL) 175 H 181 H (75-99) mg/dL HDL Cholesterol (40-60) mg/dL Assessment and Plan Assessment: * Acute ischemic infarction in the right micki. Likely from small vessel disease. * Hypertension * Diabetes * Previous history of right internal capsular stroke in 2014 with no significant residual focal deficits although balance was somewhat affected. Plan: * Continue dual antiplatelet medications with aspirin 81 mg and Plavix 75 mg. * Carotid Doppler revealed bilateral wall thickening. No elevated velocities or significant stenosis. Plaque seen anteriorly mid right CCA. * 2-D echo showed sinus rhythm, moderate concentric LVH. EF is 60-65%. Normal left atrial size. Injection of agitated saline documented no PFO. Mild aortic valve sclerosis. * Permissible hypertension for 24-48 hours. May start treating blood pressure from a.m. * Pepcid 20 mg twice a day for gastric ulcer prophylaxis. * PT OT. * Consider physical medicine and rehabilitation consultation. * Neurologically clear.
[2020-03-07 20:29] LABS: Glucose,Whole Blood 218 mg/dL (75-99)
[2020-03-07] MEDS: ATORVASTATIN 40 MG TAB PO SCH (20:45)
[2020-03-07] MEDS ORDERED: LOSARTAN 25 MG TAB PO STA (22:15)
[2020-03-08 06:42] LABS: Glucose,Whole Blood 143 mg/dL (75-99)
[2020-03-08] MEDS: INSULIN ASPART (NovoLOG) 100 UNIT/ML VIAL SQ SCH ×4 (06:47→20:35)
[2020-03-08] MEDS: INSULIN DETEMIR (LEVEMIR) 100 UNIT/ML SYR SQ SCH ×2 (06:51→20:35)
[2020-03-08] MEDS: LEVOTHYROXINE 75 MCG TAB PO SCH (06:51)
[2020-03-08] MEDS: METOPROLOL SUCCINATE (ER) 25 MG TAB.ER.24H PO SCH (08:42)
[2020-03-08] MEDS: TAMSULOSIN 0.4 MG CAP.ER.24H PO SCH ×2 (08:42→20:34)
[2020-03-08] MEDS: CLOPIDOGREL 75 MG TAB PO SCH (08:42)
[2020-03-08] MEDS: ASPIRIN 81 MG PO SCH ×2 (08:42→20:34)
[2020-03-08] MEDS: FAMOTIDINE 20 MG TAB PO SCH ×2 (08:42→20:34)
[2020-03-08] MEDS: CARBIDOPA-LEVODOPA 25-100 MG 1 EACH TAB PO SCH ×4 (08:42→20:35)
[2020-03-08] MEDS: MULTIVITAMINS, THERA 1 EACH TAB PO SCH (08:42)
[2020-03-08] MEDS: LOSARTAN 25 MG TAB PO SCH (08:46)
[2020-03-08 11:40] LABS: Glucose,Whole Blood 177 mg/dL (75-99)
--- NOTE | 2020-03-08 11:58 | P.PN ---
Subjective Progress Note Date: 03/08/20 There is a dictation on the progress note date of service 03/08/2020 Patient is awake alert is still having difficulties of his ambulation and need for further rehabilitation at half-way. Discussion with the nursing staff stated that patient will be completing 3 days inpatient rehabilitation tomorrow and possibly going tomorrow to [facility]. Patient in chair Sarah chair and able to communicate no fullness or Depen on his right micki stroke. Parkinson disease monitored and medicated. Diabetes mellitus type 2 on controlled on admission currently stable with the use of insulin therapy. Lactic acidosis has been resolved. Carotid artery duplex study as well has echocardiogram was done however the etiology stated ischemic infarction of the right side of the micki. Dyslipidemia with low HDL. Currently on statin therapy. Patient seen by service desk agent Dr. Mishra as well as seen by neurologist Dr. May. Patient still unable to ambulate and he is receiving physical therapy. Able to eat and drink with no dysphagia. Patient on IV fluid with the increase in the left pressure will be discontinuing the IUD today may be contributing to his volume expansion. However we don't have edema of the lower extremities. Hypertension with the underlying mild diastolic elevation he was started lost night on losartan 25 mg ordered by cardiology, however the diastolic still elevated and we started him on amlodipine 2.5 mg once a day with those will be today. Patient is conscious alert oriented discussed with the patient why he has 2 young the hospital with the possible transfer to [facility] for continuing rehabilitation. Head was normocephalic and atraumatic and oropharynx was normal natural teeth and able to swallow without dysphagia. The neck was supple no JVD no thyromegaly no lymphadenopathy. Chest was clear to auscultation and percussion. The heart PMI in the fifth intercostal space outside midclavicular line with the underlying hypertensive heart disease with the positive murmur on the left sternal border grade 6. Abdomen soft positive bowel sounds and extremities no edema. Pulses still left sided upper and lower extremities weakness. 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 #3 Parkinson disease. #4 hypertension with hypertensive heart disease and murmur with a valve disease. Echo cardiogram. #5 hypothyroidism. Controlled #6 walking disability secondary to stroke which is new to him started with the presley estrada. #7 dyslipidemia, low HDL. On atorvastatin currently. #8 patient on Plavix started by Dr. May the neurologist with a loading dose followed by maintenance dose 75 mg daily. Plan: We'll continue current treatment. Will add amlodipine 2.5 mg for better control of her blood pressure. Plan for half-way tomorrow if the bed is available at [facility] and that he. DC his IV fluid. Have saline lock Laboratory tomorrow to check on the renal function as well as the hemoglobin and hematocrit. CBC with differential, BMP. Objective - Vital Signs Vital signs: Vital Signs Temp 97.6 F 03/08/20 07:30 Pulse 66 03/08/20 11:35 Resp 16 03/08/20 11:35 BP 136/93 03/08/20 11:35 Pulse Ox 97 03/08/20 11:35 Intake & Output 03/07/20 03/08/20 03/08/20 18:59 06:59 18:59 Intake Total 1245 120 Output Total 200 725 Balance 1045 -725 120 Weight 61 kg Intake: IV 525 Sodium Chloride 0.9% 1, 525 000 ml @ 75 mls/hr IV . [id number] [facility] Rx#:[id number] Oral 720 120 Output: Urine 200 725 Other: Voiding Method Urinal Urinal Urinal Incontinent Incontinent Incontinent # Voids 1 1 - Labs CBC & Chem 7: 03/06/20 05:49 03/06/20 05:49 Labs: Abnormal Lab Results - Last 24 Hours (Table) 03/07/20 03/07/20 03/07/20 Range/Units 10:39 16:13 20:27 POC Glucose (mg/dL) 181 H 218 H (75-99) mg/dL HDL Cholesterol 38 L (40-60) mg/dL 03/08/20 Range/Units 06:41 POC Glucose (mg/dL) 143 H (75-99) mg/dL HDL Cholesterol (40-60) mg/dL
[2020-03-08] MEDS: amLODIPine 2.5 MG TAB PO SCH (12:26)
--- NOTE | 2020-03-08 15:02 | P.PN ---
Subjective This is Latoya Kebede PA-C dictating a progress note on this patient The patient was interviewed and examined by me as well as by Dr. Mishra Case discussed with Dr. Mishra and he agrees with the plan of care HPI/interval history Patient is a 79-year-old male with a history of CVA with residual left-sided weakness, diabetic, and Parkinson's disease who presented with complaints of worsening left lower extremity weakness. He was found to have an acute CVA of the right micki. Yesterday we started him on losartan and he seems to have t olerated that well. Patient seen and examined resting in bed. States he is still tired and weak. Denies any chest pain or shortness of breath. EXAMINATION Patient is afebrile, pulse in the 60s, respirations 16, blood pressure 136/93, oxygen saturation 97% on room air Patient seen and examined resting in bed, in no acute distress Heart is regular, no audible murmurs Lungs are clear to auscultation bilaterally Extremities warm, no edema, left lower extremity weakenss noted REVIEW OF LABS, ECG No new labs today LDL 43 Echocardiogram shows EF 60-65%, moderate LVH, no evidence of PFO with bubble study Telemetry reveals sinus rhythm, no arrhythmias IMPRESSION / ASSESSMENT: #1 symptoms of worsening left lower extremity weakness secondary to acute CVA of the right micki, neurology following, cause is unclear, echocardiogram did not show any sign of a PFO, carotid Dopplers did not show any significant stenosis #2 prior CVA with residual left-sided weakness #3 hypertension, blood pressure improved #4 diabetes #5 Parkinson's disease PLAN: Discussed with the patient that since he has had recurrent strokes with no clear-cut etiology found on workup so far, we would recommend a loop monitor implantation to watch for silent atrial fibrillation as a cause of his strokes, patient is agreeable to this Continue dual antiplatelet therapy as per neurology Continue antihypertensive therapy Continue atorvastatin Objective - Vital Signs Vital signs: Vital Signs Temp 97.6 F 03/08/20 07:30 Pulse 66 03/08/20 11:35 Resp 16 03/08/20 11:35 BP 136/93 03/08/20 11:35 Pulse Ox 97 03/08/20 11:35 Intake & Output 03/07/20 03/08/20 03/08/20 18:59 06:59 18:59 Intake Total 1245 240 Output Total 200 725 Balance 1045 -725 240 Weight 61 kg Intake: IV 525 Sodium Chloride 0.9% 1, 525 000 ml @ 75 mls/hr IV . [id number] [facility] Rx#:[id number] Oral 720 240 Output: Urine 200 725 Other: Voiding Method Urinal Urinal Urinal Incontinent Incontinent Incontinent # Voids 1 1 1 - Labs CBC & Chem 7: 03/06/20 05:49 03/06/20 05:49 Labs: Abnormal Lab Results - Last 24 Hours (Table) 03/07/20 03/07/20 03/08/20 Range/Units 16:13 20:27 06:41 POC Glucose (mg/dL) 181 H 218 H 143 H (75-99) mg/dL 03/08/20 Range/Units 11:31 POC Glucose (mg/dL) 177 H (75-99) mg/dL
[2020-03-08 16:46] LABS: Glucose,Whole Blood 201 mg/dL (75-99)
--- NOTE | 2020-03-08 17:24 | P.PN ---
Subjective Progress Note Date: 03/08/20 Patient was seen for a follow-up. Patient apparently had a fall when he tried to close the door and to turn the lights off. He states that he just slumped to the ground, did not hit his head or back. Still with left-sided ataxia, and balance is no better. Elementary monitoring showed sinus rhythm in the last 24 hours. Objective - Vital Signs Vital signs: Vital Signs Temp 98.4 F 03/08/20 16:00 Pulse 61 03/08/20 16:00 Resp 16 03/08/20 16:00 BP 137/81 03/08/20 16:00 Pulse Ox 96 03/08/20 16:00 Intake & Output 03/07/20 03/08/20 03/08/20 18:59 06:59 18:59 Intake Total 1245 240 Output Total 200 725 550 Balance 1045 -725 -310 Weight 61 kg Intake: IV 525 Sodium Chloride 0.9% 1, 525 000 ml @ 75 mls/hr IV . [id number] [facility] Rx#:[id number] Oral 720 240 Output: Urine 200 725 550 Other: Voiding Method Urinal Urinal Urinal Incontinent Incontinent Incontinent # Voids 1 1 1 - Exam Patient's mental status, speech and language functions are normal. Cranial nerves are normal. Muscle strength showed left pronator drift. 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 In the lower extremities the only weakness is left hip flexion which is 5-. Patient is ataxic for [id number] on the left. Sensations are equal. Gait deferred. Patient has Babinski on the left. - Labs CBC & Chem 7: 03/06/20 05:49 03/06/20 05:49 Labs: Abnormal Lab Results - Last 24 Hours (Table) 03/07/20 03/08/20 03/08/20 Range/Units 20:27 06:41 11:31 POC Glucose (mg/dL) 218 H 143 H 177 H (75-99) mg/dL 03/08/20 Range/Units 16:27 POC Glucose (mg/dL) 201 H (75-99) mg/dL Assessment and Plan Assessment: * Acute ischemic infarction in the right micki. Likely from small vessel disease. * Hypertension * Diabetes * Previous history of right internal capsular stroke in 2014 with no significant residual focal deficits although balance was somewhat affected. Plan: * Continue dual antiplatelet medications with aspirin 81 mg and Plavix 75 mg. * Carotid Doppler revealed bilateral wall thickening. No elevated velocities or significant stenosis. Plaque seen anteriorly mid right CCA. * 2-D echo showed sinus rhythm, moderate concentric LVH. EF is 60-65%. Normal left atrial size. Injection of agitated saline documented no PFO. Mild aortic valve sclerosis. * Permissible hypertension for 24-48 hours. May start treating blood pressure from a.m. * Pepcid 20 mg twice a day for gastric ulcer prophylaxis. * PT OT. * Consider physical medicine and rehabilitation consultation. * Neurologically clear to be transferred to rehab.
[2020-03-08 20:23] LABS: Glucose,Whole Blood 188 mg/dL (75-99)
[2020-03-08] MEDS: ATORVASTATIN 40 MG TAB PO SCH (20:34)
[2020-03-09] MEDS: FAMOTIDINE 20 MG TAB PO SCH ×2 (06:16→20:30)
[2020-03-09] MEDS: LOSARTAN 25 MG TAB PO SCH ×2 (06:16→20:29)
[2020-03-09] MEDS: ASPIRIN 81 MG PO SCH ×2 (06:16→20:29)
[2020-03-09] MEDS: MULTIVITAMINS, THERA 1 EACH TAB PO SCH (06:17)
[2020-03-09] MEDS: CARBIDOPA-LEVODOPA 25-100 MG 1 EACH TAB PO SCH ×4 (06:17→20:29)
[2020-03-09] MEDS: METOPROLOL SUCCINATE (ER) 25 MG TAB.ER.24H PO SCH (06:17)
[2020-03-09] MEDS: amLODIPine 2.5 MG TAB PO SCH (06:17)
[2020-03-09] MEDS: TAMSULOSIN 0.4 MG CAP.ER.24H PO SCH ×2 (06:17→20:29)
[2020-03-09] MEDS: LEVOTHYROXINE 75 MCG TAB PO SCH (06:17)
[2020-03-09] MEDS: CLOPIDOGREL 75 MG TAB PO SCH (06:17)
[2020-03-09 06:22] LABS: Glucose,Whole Blood 187 mg/dL (75-99)
[2020-03-09 07:30] LABS: Basophils % (A) 1 %; Eosinophils # (A) 0.2 k/uL (0-0.7); Eosinophils % (A) 3 %; HCT 39.6 % (39.0-53.0); HGB 12.3 gm/dL (13.0-17.5); Lymphocytes # (A) 1.2 k/uL (1.0-4.8); Lymphocytes % (A) 16 %; MCH 30.2 pg (25.0-35.0); MCHC 31.1 g/dL (31.0-37.0); MCV 97.1 fL (80.0-100.0); Mean Platelet Volume 7.8; Monocytes # (A) 0.6 k/uL (0-1.0); Monocytes % (A) 8 %; Neutrophils % (A) 69 %; Platelet Count 172 k/uL (150-450); RBC 4.08 m/uL (4.30-5.90); RDW 13.4 % (11.5-15.5); WBC 7.2 k/uL (3.8-10.6)
[2020-03-09 07:38] LABS: African American GFR (CKD) >90 (>60 ml/min/1.73 sqM); Anion Gap 7 mmol/L; Blood Urea Nitrogen 16 mg/dL (9-20); Calcium 8.8 mg/dL (8.4-10.2); Carbon Dioxide 28 mmol/L (22-30); Chloride 105 mmol/L (98-107); Glucose 176 mg/dL (74-99); Non-African American GFR(CKD) 89 (>60 ml/min/1.73 sqM); Potassium 3.9 mmol/L (3.5-5.1); Sodium 140 mmol/L (137-145)
[2020-03-09] MEDS: INSULIN DETEMIR (LEVEMIR) 100 UNIT/ML SYR SQ SCH ×2 (09:07→20:32)
[2020-03-09 12:03] LABS: Glucose,Whole Blood 239 mg/dL (75-99)
--- NOTE | 2020-03-09 12:44 | P.PN ---
<Latoya Kebede - Last Filed: 03/09/20 12:39> Subjective This is Latoya Kebede PA-C scribing on behalf of Dr. Mishra The patient was interviewed and examined by Dr. Mishra HPI/interval history Patient is a 79-year-old male with a history of CVA with residual left-sided weakness, diabetic, and Parkinson's disease who presented with complaints of worsening left lower extremity weakness. He was found to have an acute CVA of the right micki. Carotid Doppler showed no significant hemodynamic stenosis. So far he has not had any atrial fibrillation on telemetry. Patient was seen and examined in follow-up by Dr. Mishra this morning. Still feeling weak and tired. EXAMINATION Patient is afebrile, pulse in the 60s, respirations 20, blood pressure 124/61, oxygen saturation 96% on room air Patient seen and examined by Dr. Mishra Heart is regular, no audible murmurs Lungs are clear to auscultation bilaterally No carotid bruits REVIEW OF LABS, ECG WBC 7.2, hemoglobin 12.3, platelets 172, potassium 3.9, BUN 16, creatinine 0.75 Echocardiogram shows EF 60-65%, moderate LVH, no evidence of PFO with bubble study Telemetry reveals sinus rhythm, no arrhythmias IMPRESSION / ASSESSMENT: #1 symptoms of worsening left lower extremity weakness secondary to acute CVA of the right micki, neurology following, cause is unclear, echocardiogram did not show any sign of a PFO, carotid Dopplers did not show any significant stenosis #2 prior CVA with residual left-sided weakness #3 hypertension, blood pressure has been fluctuating and was elevated overnight #4 diabetes #5 Parkinson's disease PLAN: Increase losartan to 25 mg twice daily for blood pressure management, we will maximize the losartan as he is a diabetic therefore angiotensin receptor blockers are indicated in this patient, we will reevaluate his blood pressure tomorrow and may increase it to 50 twice a day if needed Plan for loop monitor implantation today, Dr. Mishra had a detailed discussion with the patient about the indications for the loop monitor and the details of the procedure Continue dual antiplatelet therapy as per neurology We will monitor him for one more day in order to monitor his blood pressure, plan for discharge tomorrow Objective - Vital Signs Vital signs: Vital Signs Temp 98 F 03/09/20 11:27 Pulse 63 03/09/20 11:27 Resp 20 03/09/20 11:27 BP 124/61 03/09/20 11:27 Pulse Ox 96 03/09/20 11:27 Intake & Output 03/08/20 03/09/20 03/09/20 18:59 06:59 18:59 Intake Total 360 440 Output Total 550 500 100 Balance -190 -60 -100 Weight 94.1 kg Intake: Oral 360 440 Output: Urine 550 500 100 Other: Voiding Method Urinal Urinal Urinal Incontinent Incontinent Incontinent # Voids 1 1 # Bowel Movements 0 - Labs CBC & Chem 7: 03/09/20 06:22 03/09/20 06:22 Labs: Abnormal Lab Results - Last 24 Hours (Table) 03/08/20 03/08/20 03/08/20 Range/Units 11:31 16:27 20:22 RBC (4.30-5.90) m/uL Hgb (13.0-17.5) gm/dL Glucose (74-99) mg/dL POC Glucose (mg/dL) 177 H 201 H 188 H (75-99) mg/dL 03/09/20 03/09/20 03/09/20 Range/Units 06:21 06:22 06:22 RBC 4.08 L (4.30-5.90) m/uL Hgb 12.3 L (13.0-17.5) gm/dL Glucose 176 H (74-99) mg/dL POC Glucose (mg/dL) 187 H (75-99) mg/dL <Lucius Mishra - Last Filed: 03/09/20 12:51> Objective - Vital Signs Vital signs: Vital Signs Temp 98 F 03/09/20 11:27 Pulse 63 03/09/20 11:27 Resp 20 03/09/20 11:27 BP 124/61 03/09/20 11:27 Pulse Ox 96 03/09/20 11:27 Intake & Output 03/08/20 03/09/20 03/09/20 18:59 06:59 18:59 Intake Total 360 440 Output Total 550 500 100 Balance -190 -60 -100 Weight 94.1 kg Intake: Oral 360 440 Output: Urine 550 500 100 Other: Voiding Method Urinal Urinal Urinal Incontinent Incontinent Incontinent # Voids 1 1 # Bowel Movements 0 - Labs CBC & Chem 7: 03/09/20 06:22 03/09/20 06:22 Labs: Abnormal Lab Results - Last 24 Hours (Table) 03/08/20 03/08/20 03/09/20 Range/Units 16:27 20:22 06:21 RBC (4.30-5.90) m/uL Hgb (13.0-17.5) gm/dL Glucose (74-99) mg/dL POC Glucose (mg/dL) 201 H 188 H 187 H (75-99) mg/dL 03/09/20 03/09/20 03/09/20 Range/Units 06:22 06:22 12:00 RBC 4.08 L (4.30-5.90) m/uL Hgb 12.3 L (13.0-17.5) gm/dL Glucose 176 H (74-99) mg/dL POC Glucose (mg/dL) 239 H (75-99) mg/dL
--- NOTE | 2020-03-09 12:52 | P.DS ---
Providers Date of admission: 03/06/20 13:15 Expected date of discharge: 03/09/20 Attending physician: Sherif Jama Consults: 03/05/20 18:25 Consult Physician Stat Consulting Provider: Darius Wright Consult Reason/Comments: Left lower extremity weakness, history of CVA. Do you want consulting provider notified?: Yes 03/06/20 12:19 Consult Physician Stat Consulting Provider: Lucius Mishra Consult Reason/Comments: rt micki stroke R/o PFO Do you want consulting provider notified?: Yes Primary care physician: Sherif Jama dictated #[id number] 03/09/20 on phone . Patient Condition at Discharge: Good Plan - Discharge Summary Discharge Rx Participant: No New Discharge Prescriptions: New Losartan [Cozaar] 25 mg PO DAILY tab Insulin Detemir (Levemir) [Levemir] 10 unit SQ DAILY@0700 syr Insulin Detemir (Levemir) [Levemir] 5 unit SQ HS syr Atorvastatin [Lipitor] 40 mg PO HS tab amLODIPine [Norvasc] 2.5 mg PO DAILY tab INSULIN ASPART (NovoLOG) [NovoLOG (formulary)] 2 - 8 unit SQ AC-TID vial Clopidogrel [Plavix] 75 mg PO DAILY tab Levothyroxine Sodium [Synthroid] 75 mcg PO DAILY@0630 tab Continue Carbidopa-Levodopa 25-100 mg [Sinemet 25-100 mg] 1 tab PO QID Tamsulosin [Flomax] 0.4 mg PO BID Occuvite 1 tab PO DAILY Multivitamins, Thera [Multivitamin (formulary)] 1 each PO DAILY Aspirin [Adult Low Dose Aspirin EC] 81 mg PO BID Glucosamine/MSM/Chrond/D3/Bosw [Brfdzplsreu-Zhhlew-ZSJ-D3 Cplt] 1 tab PO DAILY Metoprolol Succinate (ER) [Toprol XL] 25 mg PO DAILY Discontinued glipiZIDE [Glucotrol] 10 mg PO BID metFORMIN HCL 1,000 mg PO AC-BRKFST Pioglitazone [Actos] 30 mg PO DAILY Levothyroxine Sodium [Synthroid] 75 mcg PO DAILY metFORMIN HCL 1,500 mg PO AC-SUPPER Discharge Medication List Aspirin [Adult Low Dose Aspirin EC] 81 mg PO BID 06/20/19 [History] Carbidopa-Levodopa 25-100 mg [Sinemet 25-100 mg] 1 tab PO QID 06/20/19 [History] Glucosamine/MSM/Chrond/D3/Bosw [Gyhtiauyhox-Qstonp-KYK-D3 Cplt] 1 tab PO DAILY 06/20/19 [History] Multivitamins, Thera [Multivitamin (formulary)] 1 each PO DAILY 06/20/19 [History] Occuvite 1 tab PO DAILY 06/20/19 [History] Tamsulosin [Flomax] 0.4 mg PO BID 06/20/19 [History] Metoprolol Succinate (ER) [Toprol XL] 25 mg PO DAILY 03/05/20 [History] Atorvastatin [Lipitor] 40 mg PO HS tab 03/09/20 [Rx] Clopidogrel [Plavix] 75 mg PO DAILY tab 03/09/20 [Rx] INSULIN ASPART (NovoLOG) [NovoLOG (formulary)] 2 - 8 unit SQ AC-TID vial 03/09/20 [Rx] Insulin Detemir (Levemir) [Levemir] 5 unit SQ HS syr 03/09/20 [Rx] Insulin Detemir (Levemir) [Levemir] 10 unit SQ DAILY@0700 syr 03/09/20 [Rx] Levothyroxine Sodium [Synthroid] 75 mcg PO DAILY@0630 tab 03/09/20 [Rx] Losartan [Cozaar] 25 mg PO DAILY tab 03/09/20 [Rx] amLODIPine [Norvasc] 2.5 mg PO DAILY tab 03/09/20 [Rx] Follow up Appointment(s)/Referral(s): Lucius Mishra MD [STAFF PHYSICIAN] - 03/30/20 2:15 pm (follow up with Dr. Mishra in 3 weeks 03/30/20 2:15pm also follow up with [facility] Nurse in 5 days- March 14 2:15 pm ) Sherif Jama MD [Primary Care Provider] - 03/12/20 3:10 pm Patient Instructions/Handouts: Ischemic Stroke (DC) Discharge Disposition: TRANSFER TO SNF/ECF Plan of Treatment: Inpatient rehabilitation at [facility] and rehab with the underlying right-sided micki stroke ischemic infarction.
[2020-03-09] MEDS ORDERED: MIDAZOLAM 2 MG/2 ML VIAL IVP ONE (13:55)
[2020-03-09] MEDS ORDERED: SODIUM CHLORIDE 0.9% 250 ML IV ONE (13:55)
[2020-03-09] MEDS ORDERED: LIDOCAINE 1% INJ 10MG/ML (20 ML MDV) ONE (13:56)
[2020-03-09] MEDS ORDERED: LIDOCAINE 1% INJ 10MG/ML (20 ML MDV) SQ ONE (13:58)
--- NOTE | 2020-03-09 14:11 | P.PCN ---
Preoperative Diagnosis: Loop monitor implant Primary physicians: Dr. Jama Fast Food Fry Cook: Dr. Mishra Indication: Cryptogenic stroke Patient was brought to the EP lab in a fasting state. Written informed consent was obtained prior to the procedure. The left pectoral area was prepped and draped per protocol. Intravenous antibiotic was administered preoperatively. A subcutaneous Loop monitor was implanted successfully and the wound was closed per protocol. The device was programmed to detect significant eugene- arrhythmic and tachy-arrhythmic events, per protocol. Device and programming details: New cryptogenic stroke parameters to minimize false positives Patient underwent EP procedure under conscious sedation/moderate sedation, monitoring of the level of consciousness and physiologic parameters including but not limited to vital signs and oxygenation. Patient tolerated the procedure well without any acute complications. Start time: 1356 Stop time: 1405
[2020-03-09 14:41] LABS: Glucose,Whole Blood 152 mg/dL (75-99)
[2020-03-09] MEDS: INSULIN ASPART (NovoLOG) 100 UNIT/ML VIAL SQ SCH ×2 (14:45→17:41)
--- NOTE | 2020-03-09 15:27 | P.PN ---
Subjective Progress Note Date: 03/09/20 Patient was seen for a follow-up. Patient feels fine. Offers no new complaints. Continues to have left-sided ataxia. Continues to have significant gait imbalance. Patient had undergone loop recorder placement by gore cutter to rule out paroxysmal atrial fibrillation. Telemetry monitoring continues to show normal sinus rhythm in the last 24 hours. Objective - Vital Signs Vital signs: Vital Signs Temp 97.6 F 03/09/20 15:18 Pulse 55 L 03/09/20 15:18 Resp 16 03/09/20 15:18 BP 134/70 03/09/20 15:18 Pulse Ox 96 03/09/20 15:18 Intake & Output 03/08/20 03/09/20 03/09/20 18:59 06:59 18:59 Intake Total 360 440 100 Output Total 550 500 100 Balance -190 -60 0 Weight 94.1 kg Intake: IV 100 Oral 360 440 Output: Urine 550 500 100 Other: Voiding Method Urinal Urinal Urinal Incontinent Incontinent Incontinent # Voids 1 1 # Bowel Movements 0 - Exam Patient is laying comfortably in the bed. Patient's mental status, speech and language functions are normal. Cranial nerves are normal. Muscle strength showed left pronator drift. 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 In the lower extremities the only weakness is left hip flexion which is 5-. Patient is ataxic for [id number] on the left. Sensations are equal. Gait deferred. Patient has Babinski on the left. - Labs CBC & Chem 7: 03/09/20 06:22 03/09/20 06:22 Labs: Abnormal Lab Results - Last 24 Hours (Table) 03/08/20 03/08/20 03/09/20 Range/Units 16:27 20:22 06:21 RBC (4.30-5.90) m/uL Hgb (13.0-17.5) gm/dL Glucose (74-99) mg/dL POC Glucose (mg/dL) 201 H 188 H 187 H (75-99) mg/dL 03/09/20 03/09/20 03/09/20 Range/Units 06:22 06:22 12:00 RBC 4.08 L (4.30-5.90) m/uL Hgb 12.3 L (13.0-17.5) gm/dL Glucose 176 H (74-99) mg/dL POC Glucose (mg/dL) 239 H (75-99) mg/dL 03/09/20 Range/Units 14:39 RBC (4.30-5.90) m/uL Hgb (13.0-17.5) gm/dL Glucose (74-99) mg/dL POC Glucose (mg/dL) 152 H (75-99) mg/dL Assessment and Plan Assessment: * Acute ischemic infarction in the right micki. Likely from small vessel disease. * Hypertension * Diabetes * Previous history of right internal capsular stroke in 2014 with no significant residual focal deficits although balance was somewhat affected. Plan: * Continue dual antiplatelet medications with aspirin 81 mg and Plavix 75 mg. * Carotid Doppler revealed bilateral wall thickening. No elevated velocities or significant stenosis. Plaque seen anteriorly mid right CCA. * 2-D echo showed sinus rhythm, moderate concentric LVH. EF is 60-65%. Normal left atrial size. Injection of agitated saline documented no PFO. Mild aor tic valve sclerosis. * Optimize control of blood pressure at this time. * Patient is status post placement of loop recorder to rule out paroxysmal atrial fibrillation. * Continue Pepcid 20 mg twice a day for gastric ulcer prophylaxis. * PT OT. * Neurologically clear to be transferred to rehab.
--- NOTE | 2020-03-09 16:10 | DS ---
This is an addendum to the discharge summary date of service 03/10/2020. Patient was held from discharge on 03/09/2020 by cardiology after he plays loop in the left upper chest for the detection of arrhythmia and he requested to monitor his blood pressure with the fluctuation at this time patient held from discharge tomorrow [place] to be discharged today. Patient seen today and evaluated with no changes in general condition and his vital signs stable, no event neurologically or cardiovascular or respiratory. His physical exam was negative except weakness in the left upper and the lower extremities, able to eat and swallow no dysphagia, could not stand up or ambulate with the gait disturbance. Patient will be transferred to [facility] and rehab in a stable general condition today after was released by cardiology with the stability. And will be continuing the current medication. Dr. samson did discontinue amlodipine and Toprol-XL and started him on losartan 25 mg twice a day, and he is also with a history of Parkinson disease and right-sided micki ischemic infarction and on maintenance of Plavix 75 mg once a day as well as aspirin 81 mg as well as atorvastatin. Patient seen and evaluated today in person and will be following him in the retirement. DISCHARGE SUMMARY NEW DATA: FULL CODE. Height is 5 feet 10 inches, weight 94.1 kg. BSA 2.12 m2. BMI 29.8 kg/m2. ALLERGIES: UNKNOWN. The patient is seen today and evaluated. He is eager to go to the retirement. Dr. Mishra saw the patient today and he decided to have a loop monitor to be done today prior to the transfer to [facility]. FINAL DIAGNOSES: 1. Patient admitted to the hospital with weakness on the left upper and the lower extremities with falling in his bathroom and inability to stand or walk at home. He was brought by ambulance. 2. Patient found by the MRI to have ischemic stroke infarction on the right micki associated with his left-sided weakness and inability to walk. 3. Parkinson's disease. He was treated with Sinemet 25/100 four times a day and continued to be stable. 4. Diabetes mellitus, type 2, uncontrolled. 5. Lactic acidosis with ketonuria and surplus glucosuria. 6. Hypothyroidism, chronic. The laboratory was stable. 7. Benign prostatic hypertrophy, under treatment, with mild incontinence. 8. Discontinuation of metformin, pioglitazone, glipizide and change it to insulin, Levemir, basal and NovoLog to scale. 9. Hyperlipidemia, currently on atorvastatin. 10.He is on aspirin as well as Plavix with the underlying right micki stroke. 11.Dr. Mishra, Cardiology, will be placing loop in the left upper chest for monitoring for cardiac dysrhythmia. 12.The patient had a carotid duplex study and echocardiogram negative, with agitation with saline negative for PFO. 13.Hypertension with hypertensive heart disease and currently on medication, metoprolol XL and amlodipine 2.5 mg daily. The metoprolol succinate is 25 once daily and blood pressure medication to be adjusted in the future. He is also on losartan 25 mg daily as prescribed by Dr. Mishra. HOSPITAL COURSE: The patient was admitted to the hospital on March 05 and he will be discharged on March 09, 2020. The patient presented with a fall at home in the bathroom, unable to stand up or walk, with weakness in his left side. His called EMS and he was brought to the ER at [facility], where he was evaluated. At that time I did see the patient. The thought was initially that it could be a TIA or stroke. He was admitted on observation. However, I ordered the same day an MRI. The MRI done on 03/06/2020 at 11:43 a.m., on the second day, indicated that he had a right-sided micki stroke his admission was changed to regular. Rehabilitation was called for evaluation with the need for a long rehabilitation time. The patient will be moved to [facility] for inpatient rehabilitation. During his hospital stay, he had a CT scan of the brain. Initially it was nondiagnostic, but subsequently the MRI was diagnostic. His chest x-ray which was done on 03/05/2020 in the ER was negative. He had subsequently an echocardiogram and also an EKG and carotid duplex study. He was seen by the neurologist, Dr. Wright, who started the patient on loading dose of Plavix followed by maintenance dose of Plavix, which is 75 mg daily. As the patient continued to have rehabilitation, he had a scab on his left knee from the fall, but no tenderness or swelling of the left knee. He had a similar event in the hospital last night. He fell down because he could not get his balance straightened up. DISCHARGE EXAMINATION: VITAL SIGNS: Today his temperature is 98 Fahrenheit orally, pulse 63 per minute, respiratory rate 20, blood pressure 124/61 with mean blood pressure 82, and his oxygen on room air 96%. HEENT: The head was normocephalic, atraumatic. Pupils equal and reactive. He is able to swallow and eat. He has mild facial deviation, pulled to the right, with nasolabial fold abnormality. He is able to speak and communicate as well. NECK: Supple. He had mild plaques in the carotid; however, no significant stenosis. The echocardiogram indicated sinus rhythm with an ejection fraction of 60% to 65% and normal left atrium and right atrium. He had mild aortic valve sclerosis, mild mitral regurgitation and mild tricuspid regurgitation present. He had mild pulmonary hypertension and right ventricular systolic pressure measured by Doppler at 37.3 mmHg. He had physiologic pulmonary regurgitation and his aortic dilated measured 4.1 cm. His carotid duplex scan was indicating bilateral wall thickening and no elevated velocities or significant stenosis. There is a plaque seen in the anterior mid right common carotid artery. These results have been reviewed by the neurologist and stereotyper apprentice. HEART: As mentioned, regular sinus rhythm with the positive murmur. ABDOMEN: Soft. Positive bowel sounds. No tenderness. EXTREMITIES: No edema. Positive pulses. He is able to move his right upper and the lower extremities. However, there is deficit in the left upper and lower extremities with gait and balance. No edema. Positive pulses on the dorsalis pedis and posterior tibial and popliteal. NEUROLOGICAL: He had an ischemic infarction stroke in the right micki with the associated hemiparesis and gait disturbance. ASSESSMENT: The patient is in stable general condition. His vital signs are stable. He is going to be transferred to [facility] after Dr. Mishra places the loop for monitoring his heart. Otherwise, the patient will be continuing his medication, and we will be following the patient in [facility]. MMODL / IJN: [id number] / MTDD
[2020-03-09 16:39] LABS: Glucose,Whole Blood 185 mg/dL (75-99)
[2020-03-09 19:51] LABS: Glucose,Whole Blood 219 mg/dL (75-99)
[2020-03-09] MEDS: ATORVASTATIN 40 MG TAB PO SCH ×2 (20:29→20:30)
[2020-03-10 05:45] LABS: Glucose,Whole Blood 115 mg/dL (75-99)
[2020-03-10] MEDS: INSULIN DETEMIR (LEVEMIR) 100 UNIT/ML SYR SQ SCH (06:09)
[2020-03-10] MEDS: INSULIN ASPART (NovoLOG) 100 UNIT/ML VIAL SQ SCH ×2 (06:09→12:14)
[2020-03-10] MEDS: LEVOTHYROXINE 75 MCG TAB PO SCH (06:11)
[2020-03-10 06:17] VITALS: RESP 18
[2020-03-10] MEDS: LOSARTAN 25 MG TAB PO SCH (07:58)
[2020-03-10] MEDS: MULTIVITAMINS, THERA 1 EACH TAB PO SCH (07:58)
[2020-03-10] MEDS: CLOPIDOGREL 75 MG TAB PO SCH (07:58)
[2020-03-10] MEDS: TAMSULOSIN 0.4 MG CAP.ER.24H PO SCH (07:58)
[2020-03-10] MEDS: FAMOTIDINE 20 MG TAB PO SCH (07:58)
[2020-03-10] MEDS: CARBIDOPA-LEVODOPA 25-100 MG 1 EACH TAB PO SCH ×2 (07:58→12:23)
[2020-03-10] MEDS: ASPIRIN 81 MG PO SCH (09:04)
--- NOTE | 2020-03-10 10:20 | P.PN ---
Subjective Progress Note Date: 03/10/20 This a pleasant 79-year-old gentleman with a history of CVA with residual left- sided weakness, diabetes, Parkinson's who presented with complaints of worsening left lower extremity weakness. Found to have acute CVA of the right micki. Carotid Doppler showed no significant hemodynamic stenosis. Patient underwent implantation of loop recorder yesterday to monitor for paroxysmal atrial fibrillation. He's been initiated on aspirin and Plavix. He is on a statin. Blood pressure is fairly well controlled with a max systolic blood pressure over the last 24 hours of 149. Objective - Vital Signs Vital signs: Vital Signs Temp 97.6 F 03/10/20 07:45 Pulse 65 03/10/20 07:45 Resp 18 03/10/20 07:45 BP 132/83 03/10/20 07:45 Pulse Ox 94 L 03/10/20 07:45 Intake & Output 03/09/20 03/10/20 03/10/20 18:59 06:59 18:59 Intake Total 370 440 240 Output Total 300 Balance 70 440 240 Weight 94.2 kg Intake: IV 100 Intake, IV Titration 50 Amount ceFAZolin 1,000 mg In 50 Sodium Chloride 0.9% 50 ml @ 100 mls/hr IVPB ONCE STA Rx#:[id number] Oral 220 440 240 Output: Urine 300 Other: Voiding Method Urinal Urinal Urinal Incontinent Incontinent Incontinent # Voids 3 - Exam PHYSICAL EXAMINATION: HEENT: Head is atraumatic, normocephalic. Pupils equal, round. Neck is supple. There is no elevated jugular venous pressure. HEART EXAMINATION: Heart sounds regular, S1 and S2 normal. No murmur or gallop heard. CHEST EXAMINATION: Lungs are clear to auscultation. No chest wall tenderness is noted on palpation or with deep breathing. ABDOMEN: Soft, nontender. Bowel sounds are heard. No organomegaly noted. EXTREMITIES: 2+ peripheral pulses with no evidence of peripheral edema and no calf tenderness noted. NEUROLOGIC patient is awake, alert and oriented x3. Left-sided weakness. . - Labs CBC & Chem 7: 03/09/20 06:22 03/09/20 06:22 Labs: Abnormal Lab Results - Last 24 Hours (Table) 03/09/20 03/09/20 03/09/20 Range/Units 12:00 14:39 16:38 POC Glucose (mg/dL) 239 H 152 H 185 H (75-99) mg/dL 03/09/20 03/10/20 Range/Units 19:48 05:43 POC Glucose (mg/dL) 219 H 115 H (75-99) mg/dL Assessment and Plan Assessment: #1 symptoms of worsening left lower extremity weakness secondary to acute CVA of the right micki #2 prior history of CVA with residual left-sided weakness #3 status post implantation of loop recorder #4 hypertension #5 diabetes #6 Parkinson's disease Plan: From split leather mosser perspective, patient is stable to be discharged to [facility] for rehab. He will need a follow-up appointment in the office for loop interrogation and follow up with Dr. Mishra in 2-3 weeks. INTERVENTIONAL RADIOLOGY TECHNOLOGIST note has been reviewed, I agree with a documented findings and plan of care. Patient was seen and examined.
[2020-03-10 11:28] LABS: Glucose,Whole Blood 270 mg/dL (75-99)
[2020-03-10 12:43] VITALS: BP 143/70; PULSE 68; TEMP 97.5
--- NOTE | 2020-03-10 13:06 | P.DS ---
Providers Date of admission: 03/06/20 13:15 Expected date of discharge: 03/10/20 (Cleared by cardiology for discharge) Attending physician: Sherif Jama Consults: 03/05/20 18:25 Consult Physician Stat Consulting Provider: Darius Wright Consult Reason/Comments: Left lower extremity weakness, history of CVA. Do you want consulting provider notified?: Yes 03/06/20 12:19 Consult Physician Stat Consulting Provider: Lucius Mishra Consult Reason/Comments: rt micki stroke R/o PFO Do you want consulting provider notified?: Yes Primary care physician: Sherif Jama Date of service 03/10/2020 Discharge today tomorrow [facility] for continuing rehabilitation. Presentation to the ER patient weakness on the left upper extremity is in the lower extremities with the first computed tomography scan was negative subsequently MRI of the brain done and indicating right sided micki ischemic infarction and started on Plavix loading dose 300 mg followed by 75 mg daily as maintenance dose by the neurologist Dr. Chavez. Patient blood pressure was abnormal and high and fluctuating, he was seen by cardiology Dr. Brower, and patient as well had echocardiogram with the valvular heart the disease and ruled out PFO, he did also have a carotid duplex study and was no hemodynamic significant stenosis however he had in the common carotid thumb lacks. Patient ejection fraction also was normal. Dr. Brower was suspicious of arrhythmias, and he requested to keep the patient 1 day more for the placement of the loop in his left upper chest and monitoring the patient and he will see him in 2 weeks in his office. And he requests to stay also for monitoring his blood pressure and he adjusted his medication for hypertension and discontinue the beta mikaela Toprol-XL as well as amlodipine, as well as started him on losartan and increase his dose to 25 twice a day. As patient seen by cardiology Dr. Zuñiga and cleared for discharge with the his vital sign was stable and patient is awake and alert with the still the weakness of his left upper and lower extremities. Patient still able to control his BM and and a urine. On current evaluation [id number] on the discharge today 03/10/2020. His HEENT was negative with the minimal drooping on the left side of the nasolabial fold, pupil was equal reactive, able to eat and swallow with no choking or dysphagia, able to communicate. He able to raise his legs the right upper and the right lower extremities is normal, the left upper and the lower extremities is weak he could not sit in a 90 on his own and he could not stand up without imbalance and fall. The neck was supple no JVD no thyromegaly no lymphadenopathy trachea midline. Chest was clear to auscultation and percussion no wheezes no rhonchi's Heart PMI in the fifth intercostal space outside midclavicular line with underlying positive murmur on the left sternal border grade 2/6 with a history of murmur and a hypertensive heart disease The abdomen was soft positive bowel sounds no tenderness in the 4 quadrants and he had a bowel movement. Extremities: He has positive pulses dorsalis pedis and posterior tibial and popliteal bilateral and he had scab on his left knee from his fall and it heals. He could not carry a weight on his left side. The urinary system: He had enlargement of prostate treatment with triamcinolone 7 and he able to urinate. And he had no decubitus of the skin. Assessment and plan #1 stable general condition for discharge to [facility] for continued rehabilitation and I'll be following him. #2 his diagnosis is the same as dictated on 03/09/2020 #3 his medication adjusted by the smokehouse operator and I did review the medication again and continued according to the new change. Current diagnoses on discharge: #1 he had weakness in the left upper and lower extremities. #2 right sided micki ischemic stroke. Patient on aspirin and Plavix #3 Parkinson disease has been treated and in the past followed by the neurologist. #4 he had lactic acidosis on admission as well as ketonuria, metformin has been discontinued, pioglitazone has been discontinued, glipizide has been discontinued. #5 patient currently on insulin short-acting NovoLog as well as basal Levemir and his blood sugar is currently stable with the future adjustment on the doses. #6 benign prostatic hypertrophy. On treatment with Flomax. #7 dyslipidemia with the low HDL on atorvastatin. #8 hypothyroidism stable on levo thyroxine. 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 Continue current medication Patient Condition at Discharge: Good Plan - Discharge Summary Discharge Rx Participant: No New Discharge Prescriptions: New RX: Insulin Detemir (Levemir) [Levemir] 10 unit SQ DAILY@0700 syr RX: Insulin Detemir (Levemir) [Levemir] 5 unit SQ HS syr RX: Atorvastatin [Lipitor] 40 mg PO HS tab RX: INSULIN ASPART (NovoLOG) [NovoLOG (formulary)] 2 - 8 unit SQ AC-TID vial RX: Clopidogrel [Plavix] 75 mg PO DAILY tab RX: Levothyroxine Sodium [Synthroid] 75 mcg PO DAILY@0630 tab RX: Losartan [Cozaar] 25 mg PO BID tab Continue RX: Carbidopa-Levodopa 25-100 mg [Sinemet 25-100 mg] 1 tab PO QID RX: Tamsulosin [Flomax] 0.4 mg PO BID Occuvite 1 tab PO DAILY RX: Multivitamins, Thera [Multivitamin (formulary)] 1 each PO DAILY RX: Aspirin [Adult Low Dose Aspirin EC] 81 mg PO BID RX: Glucosamine/MSM/Chrond/D3/Bosw [Pgnucqcleul-Tzkvgw-NTG-D3 Cplt] 1 tab PO DAILY Discontinued glipiZIDE [Glucotrol] 10 mg PO BID metFORMIN HCL 1,000 mg PO AC-BRKFST Pioglitazone [Actos] 30 mg PO DAILY Levothyroxine Sodium [Synthroid] 75 mcg PO DAILY metFORMIN HCL 1,500 mg PO AC-SUPPER RX: Metoprolol Succinate (ER) [Toprol XL] 25 mg PO DAILY Discharge Medication List Occuvite 1 tab PO DAILY 06/20/19 [History] RX: Aspirin [Adult Low Dose Aspirin EC] 81 mg PO BID 06/20/19 [History] RX: Carbidopa-Levodopa 25-100 mg [Sinemet 25-100 mg] 1 tab PO QID 06/20/19 [History] RX: Glucosamine/MSM/Chrond/D3/Bosw [Kywoqzycvex-Ufkxhv-YRR-D3 Cplt] 1 tab PO DAILY 06/20/19 [History] RX: Multivitamins, Thera [Multivitamin (formulary)] 1 each PO DAILY 06/20/19 [History] RX: Tamsulosin [Flomax] 0.4 mg PO BID 06/20/19 [History] RX: Atorvastatin [Lipitor] 40 mg PO HS tab 03/09/20 [Rx] RX: Clopidogrel [Plavix] 75 mg PO DAILY tab 03/09/20 [Rx] RX: INSULIN ASPART (NovoLOG) [NovoLOG (formulary)] 2 - 8 unit SQ AC-TID vial 03/09/20 [Rx] RX: Insulin Detemir (Levemir) [Levemir] 5 unit SQ HS syr 03/09/20 [Rx] RX: Insulin Detemir (Levemir) [Levemir] 10 unit SQ DAILY@0700 syr 03/09/20 [Rx] RX: Levothyroxine Sodium [Synthroid] 75 mcg PO DAILY@0630 tab 03/09/20 [Rx] RX: Losartan [Cozaar] 25 mg PO BID tab 03/10/20 [Rx] Follow up Appointment(s)/Referral(s): Lucius Mishra MD [STAFF PHYSICIAN] - 03/30/20 2:15 pm (follow up with Dr. Mishra in 3 weeks 03/30/20 2:15pm also follow up with [facility] Nurse in 5 days- March 14 2:15 pm ) Sherif Jama MD [Primary Care Provider] - 03/12/20 3:10 pm Patient Instructions/Handouts: Ischemic Stroke (DC), Cardiac Loop Recorder Insertion (DC) Discharge Disposition: TRANSFER TO SNF/ECF Plan of Treatment: Inpatient rehabilitation at [facility] and rehab with the underlying right-sided micki stroke ischemic infarction.
== END 2020-03-10 14:10 | DRG 40 ==
LOC: EC 12:07 → SUPCPDRO 12:07 → UNDOADMOB 18:20 → 3SCARD 18:20 → INTOOBSV 03-06 13:15 → OBSVTOIN 03-06 13:15 → 3SCARD 03-08 23:23 → UNDODISIN 03-10 14:10
PROVIDERS: ADMIT Internal Medicine; ATTEND Internal Medicine
PROC: 0JH602Z Insertion of Monitoring Device into Chest Subcutaneous Tissue and Fascia, Open Approach (ICD-10-PCS; principal; 2020-03-09 08:25)
DX: I63.81 Other cerebral infarction due to occlusion or stenosis of small artery (principal); G93.6 Cerebral edema; G81.94 Hemiplegia, unspecified affecting left nondominant side; I69.354 Hemiplegia and hemiparesis following cerebral infarction affecting left non-dominant side; E87.2 Acidosis; Z11.59 Encounter for screening for other viral diseases; I27.20 Pulmonary hypertension, unspecified; E11.51 Type 2 diabetes mellitus with diabetic peripheral angiopathy without gangrene; G20 Parkinson's disease; E11.65 Type 2 diabetes mellitus with hyperglycemia; I48.0 Paroxysmal atrial fibrillation; E21.3 Hyperparathyroidism, unspecified; I11.9 Hypertensive heart disease without heart failure; E03.9 Hypothyroidism, unspecified; H26.9 Unspecified cataract; F17.200 Nicotine dependence, unspecified, uncomplicated; I44.0 Atrioventricular block, first degree; R27.0 Ataxia, unspecified; R29.703 NIHSS score 3; R40.2362 Coma scale, best motor response, obeys commands, at arrival to emergency department; R40.2142 Coma scale, eyes open, spontaneous, at arrival to emergency department; R40.2252 Coma scale, best verbal response, oriented, at arrival to emergency department; E78.5 Hyperlipidemia, unspecified; I35.0 Nonrheumatic aortic (valve) stenosis; R82.4 Acetonuria; R81 Glycosuria; N40.1 Benign prostatic hyperplasia with lower urinary tract symptoms; N39.498 Other specified urinary incontinence; I37.1 Nonrheumatic pulmonary valve insufficiency; M19.90 Unspecified osteoarthritis, unspecified site; W18.30XA Fall on same level, unspecified, initial encounter; Z79.82 Long term (current) use of aspirin; Z79.84 Long term (current) use of oral hypoglycemic drugs; Z79.890 Hormone replacement therapy; Z79.899 Other long term (current) drug therapy; Z98.890 Other specified postprocedural states; Z87.19 Personal history of other diseases of the digestive system; Z82.5 Family history of asthma and other chronic lower respiratory diseases; Z82.49 Family history of ischemic heart disease and other diseases of the circulatory system; Z82.3 Family history of stroke; Z80.9 Family history of malignant neoplasm, unspecified; Z83.3 Family history of diabetes mellitus
CPT/HCPCS: 33285; 36415; 70450; 70553; 71046; 80048; 80053; 80061; 81001; 83036; 83605; 84443; 84484; 85025; 85610; 85730; 87635; 93005; 93306; 93880; 96360; 96361; 99285

== ENCOUNTER → 2020-08-13 | Outpatient (CLI) | payer MEDICARE ==
[2020-08-14 01:21] LABS: Hemoglobin A1C 7.3 % (4.0-6.0)
[2020-08-14 03:43] LABS: African American GFR (CKD) 74.7 (60.0-200.0); Albumin 4.4 g/dL (3.80-4.90); Albumin/Globulin Ratio 2.32 (1.60-3.17); Anion Gap 11.9 mmol/L (4.00-12.00); BUN/Creat Ratio 27.27 Ratio (12.00-20.00); Calcium 9.5 mg/dL (8.7-10.3); Carbon Dioxide 23.1 mmol/L (21.6-31.8); Chol/HDL Ratio 2.86; Globulin 1.9 g/dL (1.6-3.3); LDL Cholesterol,Calculated 47.6 mg/dL (0.0-131.0); Non-African American GFR(CKD) 64.4 (60.0-200.0); Potassium 4.4 mmol/L (3.5-5.5); Total Bilirubin 1.2 mg/dL (0.3-1.2); Total Protein 6.3 g/dL (6.2-8.2); VLDL Calculation 19.4 mg/dL (5.00-40.00)
[2020-08-14 03:52] LABS: T4, Free (Free Thyroxine) 1.3 ng/dL (0.80-1.80)
[2020-08-14 03:53] LABS: Urine Creatinine 247.6 mg/dL
== END | disposition home or self-care (01) ==
LOC: LABWHC1 14:46
PROVIDERS: ATTEND Internal Medicine Clinical Cardiac Electrophysiology
DX: E11.65 Type 2 diabetes mellitus with hyperglycemia (principal); I49.3 Ventricular premature depolarization; R00.0 Tachycardia, unspecified
CPT/HCPCS: 36415; 80053; 80061; 82043; 82570; 83036; 84439; 84443

== ENCOUNTER → 2020-08-27 | Outpatient (CLI) | payer MEDICARE | END | disposition home or self-care (01) | LOC: LABWHC1 11:51 | PROVIDERS: ATTEND Internal Medicine | DX: N40.0 Benign prostatic hyperplasia without lower urinary tract symptoms (principal) | CPT/HCPCS: 36415; 84153 ==

== ENCOUNTER 2021-02-01 04:17 | Inpatient (IN) | payer MEDICARE ==
--- NOTE | 2021-02-01 04:24 | ED ---
Fall HPI - General Chief Complaint: Fall Stated Complaint: Fall Time Seen by Provider: 02/01/21 04:24 Source: EMS, RN notes reviewed, old records reviewed Mode of arrival: EMS Limitations: no limitations - History of Present Illness Initial Comments: This is a 72-year-old male is a poor historian secondary to Parkinson's disease and dementia coming in for a fall. On the bathroom today. Unsure of loss of consciousness, patient is on Plavix. Patient is having bleeding from his posterior occiput. heard patient fall called EMS. 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 Fall Witnessed: yes, by family Place Fall Occurred: home Loss of Consciousness: none Prolonged Down Time?: no Symptoms Prior to Fall: none Location: head Severity: moderate Quality: burning Context: tripped/slipped Associated Symptoms: denies - Related Data Home Medications Medication Instructions Recorded Confirmed Aspirin [Adult Low Dose Aspirin EC] 81 mg PO BID 06/20/19 03/05/20 Carbidopa-Levodopa 25-100 mg 1 tab PO QID 06/20/19 03/05/20 [Sinemet 25-100 mg] Glucosamine/MSM/Chrond/D3/Bosw 1 tab PO DAILY 06/20/19 03/05/20 [Qadqhbdzjeq-Vybmak-XIW-D3 Cplt] Multivitamins, Thera [Multivitamin 1 each PO DAILY 06/20/19 03/05/20 (formulary)] Occuvite 1 tab PO DAILY 06/20/19 03/05/20 Tamsulosin [Flomax] 0.4 mg PO BID 06/20/19 03/05/20 Previous Rx's Medication Instructions Recorded Atorvastatin [Lipitor] 40 mg PO HS tab 03/09/20 Clopidogrel [Plavix] 75 mg PO DAILY tab 03/09/20 INSULIN ASPART (NovoLOG) [NovoLOG 2 - 8 unit SQ AC-TID vial 03/09/20 (formulary)] Insulin Detemir (Levemir) [Levemir] 5 unit SQ HS syr 03/09/20 Insulin Detemir (Levemir) [Levemir] 10 unit SQ DAILY@0700 syr 03/09/20 Levothyroxine Sodium [Synthroid] 75 mcg PO DAILY@0630 tab 03/09/20 Losartan [Cozaar] 25 mg PO BID tab 03/10/20 Allergies Allergy/AdvReac Type Severity Reaction Status Date / Time No Known Allergies Allergy Verified 03/05/20 14:37 Review of Systems ROS Statement: Those systems with pertinent positive or pertinent negative responses have been documented in the HPI. ROS Other: All systems not noted in ROS Statement are negative. Past Medical History Past Medical History: CVA/TIA, Diabetes Mellitus, Eye Disorder, Neurologic Disorder, Prostate Disorder, Thyroid Disorder Additional Past Medical History / Comment(s): PARKINSON'S. BILAT CATARACTS. [id number] LEFT SIDE History of Any Multi-Drug Resistant Organisms: None Reported Past Surgical History: Hernia Repair Additional Past Surgical History / Comment(s): bowel obstruction as a baby. COLONOSCOPY. Past Anesthesia/Blood Transfusion Reactions: No Reported Reaction Past Psychological History: No Psychological Hx Reported Smoking Status: Never smoker Past Alcohol Use History: Occasional Past Drug Use History: None Reported - Past Family History Father Family Medical History: Asthma, Cancer, Congestive Heart Failure (CHF), CVA/TIA Mother Family Medical History: Congestive Heart Failure (CHF), Diabetes Mellitus General Exam Limitations: no limitations General appearance: alert, in no apparent distress Head exam: Present: normocephalic, normal inspection. Absent: atraumatic (laceation to occiput 5cm) Eye exam: Present: normal appearance, PERRL, EOMI. Absent: scleral icterus, conjunctival injection, periorbital swelling ENT exam: Present: normal exam, mucous membranes moist Neck exam: Present: normal inspection. Absent: tenderness, meningismus, lymphadenopathy Respiratory exam: Present: normal lung sounds bilaterally. Absent: respiratory distress, wheezes, rales, rhonchi, stridor Cardiovascular Exam: Present: regular rate, normal rhythm, normal heart sounds. Absent: systolic murmur, diastolic murmur, rubs, gallop, clicks GI/Abdominal exam: Present: soft, normal bowel sounds. Absent: distended, tenderness, guarding, rebound, rigid Extremities exam: Present: normal inspection, full ROM, normal capillary refill. Absent: tenderness, pedal edema, joint swelling, calf tenderness Back exam: Present: normal inspection Neurological exam: Present: alert, oriented X3, CN II-XII intact Psychiatric exam: Present: normal affect, normal mood Skin exam: Present: warm, dry, intact, normal color. Absent: rash Course Vital Signs 02/01/21 04:18 Temperature 98 F Pulse Rate 96 Respiratory 18 Rate Blood Pressure 151/92 O2 Sat by Pulse 97 Oximetry - Reevaluation(s) Reevaluation #1: 02/01/21 05:06 Medical record is reviewed Reevaluation #2: 02/01/21 05:06 Patient's awake and alert no acute symptoms Reevaluation #3: 02/01/21 05:06 Spoke with patient and family regarding findings, questions answered Procedures - Laceration Laceration #1 Site: scalp Size (cm): 5 Description: linear Depth: simple, single layer Pre-repair: wound explored Type of Sutures: other (chato) Technique: simple, interrupted Patient Tolerated Procedure: well Medical Decision Making - Medical Decision Making 80 male status post mechanical trip and fall hitting head. Laceration repaired by chato. Patient is a symptomatic currently and can be discharged home - Radiology Data Radiology results: report reviewed (CT brain C-spine negative for acute disease), image reviewed Disposition Clinical Impression: Fall, Occipital scalp laceration Disposition: HOME SELF-CARE Condition: Good Instructions (If sedation given, give patient instructions): Fall Prevention for Older Adults (ED), Staple Care (ED) Is patient prescribed a controlled substance at d/c from ED?: No Referrals: None,Stated [Primary Care Provider] - 1-2 days
--- NOTE | 2021-02-01 05:24 | CT ---
EXAM: CT Head Without Intravenous Contrast CLINICAL HISTORY: ITS.REASON CT Reason: fall TECHNIQUE: Axial computed tomography images of the head/brain without intravenous contrast. CTDI is 30.585 mGy and DLP is 826.8 mGy-cm. This CT exam was performed using one or more of the following dose reduction techniques: automated exposure control, adjustment of the mA and/or kV according to patient size, and/or use of iterative reconstruction technique. COMPARISON: MRI 03/06/2020; CT 03/05/2020 FINDINGS: Brain: Hyperdense subdural hemorrhage is noted along the parafalcine region measuring up to 4 mm in thickness. There is also subtle subarachnoid hemorrhage layering along the corpus callosum and within several paramedian cerebral sulci in the frontal parietal region. No significant mass-effect. There is a new hypodense subcortical area in the right frontoparietal region measuring 7 mm when compared to the previous examinations. Underlying cerebral atrophy with stable periventricular deep white matter hypodense changes. Stable hypodensity in the right thalamus. Ventricles: Unremarkable. No ventriculomegaly. Bones/joints: Unremarkable. No acute fracture. Soft tissues: No significant overlying acute traumatic soft tissue abnormality identified radiographically. Sinuses: Minimal mucosal thickening involving the inferior maxillary sinuses. No air-fluid levels. The remaining paranasal sinuses are well aerated. Mastoid air cells: Unremarkable as visualized. No mastoid effusion. IMPRESSION: 1. Hyperdense subdural hemorrhage is noted along the parafalcine region measuring up to 4 mm in thickness. There is also subtle subarachnoid hemorrhage layering along the corpus callosum and within several paramedian cerebral sulci in the frontal parietal region. No significant mass-effect. However, recommend short-term interval follow-up to ensure stability over time. 2. There is a new hypodense subcortical area in the right frontoparietal region measuring 7 mm when compared to the previous examinations. The appearance is most consistent with a subacute to chronic lacunar infarct. EXAM: CT Cervical Spine Without Intravenous Contrast CLINICAL HISTORY: ITS.REASON CT Reason: fall TECHNIQUE: Axial computed tomography images of the cervical spine without intravenous contrast. CTDI is 30.585 mGy and DLP is 826.8 mGy-cm. This CT exam was performed using one or more of the following dose reduction techniques: automated exposure control, adjustment of the mA and/or kV according to patient size, and/or use of iterative reconstruction technique. COMPARISON: No relevant prior studies available. FINDINGS: Vertebrae: Partial calcification of the nuchal ligament is noted at the C4 and C5 levels measuring 1.8 cm in length. The vertebral bodies are intact without acute osseous traumatic injury. No anterolisthesis or retrolisthesis is identified. The facet joints are well aligned without subluxation or dislocation. The spinous processes are intact. Discs/spinal canal/neural foramina: The space narrowing with marginal hypertrophic osteophyte changes are most notable at C4-5 through C6-7. No severe osseous canal stenosis. Soft tissues: Unremarkable. Lung apices: The visible lung apices demonstrate no evidence for significant acute traumatic injury. IMPRESSION: No acute osseous traumatic injury or significant abnormal alignment involving the cervical spine. <MYCVCSECTION> Communications: 02/01/21 05:27 Call Doctor Regarding Intracranial Hemorrhage, called Dr. Bryant on 02/01 05:27 (-04:00)
--- NOTE | 2021-02-01 05:33 | ED ---
Fall HPI - General Chief Complaint: Fall Stated Complaint: Fall Time Seen by Provider: 02/01/21 04:24 Source: EMS, RN notes reviewed, old records reviewed Mode of arrival: EMS - History of Present Illness Initial Comments: This is a 72-year-old male is a poor historian secondary to Parkinson's disease and dementia coming in for a fall. On the bathroom today. Unsure of loss of consciousness, patient is on Plavix. Patient is having bleeding from his posterior occiput. heard patient fall called EMS. EMS arrived the patient states patient's been acting appropriately, does have a subdural scalp laceration, no other complaints of pain. Patient's is on the way. 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 Loss of Consciousness: none Prolonged Down Time?: no Symptoms Prior to Fall: none Location: head Severity: moderate Severity scale (1-10): 4 Quality: dull Context: tripped/slipped Associated Symptoms: denies - Related Data Home Medications Medication Instructions Recorded Confirmed Aspirin [Adult Low Dose Aspirin EC] 81 mg PO BID 06/20/19 03/05/20 Carbidopa-Levodopa 25-100 mg 1 tab PO QID 06/20/19 03/05/20 [Sinemet 25-100 mg] Glucosamine/MSM/Chrond/D3/Bosw 1 tab PO DAILY 06/20/19 03/05/20 [Suoyvuhvzwh-Ypjugj-JKI-D3 Cplt] Multivitamins, Thera [Multivitamin 1 each PO DAILY 06/20/19 03/05/20 (formulary)] Occuvite 1 tab PO DAILY 06/20/19 03/05/20 Tamsulosin [Flomax] 0.4 mg PO BID 06/20/19 03/05/20 Previous Rx's Medication Instructions Recorded Atorvastatin [Lipitor] 40 mg PO HS tab 03/09/20 Clopidogrel [Plavix] 75 mg PO DAILY tab 03/09/20 INSULIN ASPART (NovoLOG) [NovoLOG 2 - 8 unit SQ AC-TID vial 03/09/20 (formulary)] Insulin Detemir (Levemir) [Levemir] 5 unit SQ HS syr 03/09/20 Insulin Detemir (Levemir) [Levemir] 10 unit SQ DAILY@0700 syr 03/09/20 Levothyroxine Sodium [Synthroid] 75 mcg PO DAILY@0630 tab 03/09/20 Losartan [Cozaar] 25 mg PO BID tab 03/10/20 Allergies Allergy/AdvReac Type Severity Reaction Status Date / Time No Known Allergies Allergy Verified 03/05/20 14:37 Review of Systems ROS Statement: Those systems with pertinent positive or pertinent negative responses have been documented in the HPI. ROS Other: All systems not noted in ROS Statement are negative. Past Medical History Past Medical History: CVA/TIA, Diabetes Mellitus, Eye Disorder, Neurologic Disorder, Prostate Disorder, Thyroid Disorder Additional Past Medical History / Comment(s): PARKINSON'S. BILAT CATARACTS. [id number] LEFT SIDE History of Any Multi-Drug Resistant Organisms: None Reported Past Surgical History: Hernia Repair Additional Past Surgical History / Comment(s): bowel obstruction as a baby. COLONOSCOPY. Past Anesthesia/Blood Transfusion Reactions: No Reported Reaction Past Psychological History: No Psychological Hx Reported Smoking Status: Never smoker Past Alcohol Use History: Occasional Past Drug Use History: None Reported - Past Family History Father Family Medical History: Asthma, Cancer, Congestive Heart Failure (CHF), CVA/TIA Mother Family Medical History: Congestive Heart Failure (CHF), Diabetes Mellitus General Exam Limitations: no limitations, altered mental status (dementia) General appearance: alert, in no apparent distress, anxious, in distress Head exam: Present: normocephalic, normal inspection. Absent: atraumatic (occipital scalp laceratoin) Eye exam: Present: normal appearance, PERRL, EOMI. Absent: scleral icterus, conjunctival injection, periorbital swelling ENT exam: Present: normal exam, mucous membranes moist Neck exam: Present: normal inspection. Absent: tenderness, meningismus, lymphadenopathy Respiratory exam: Present: normal lung sounds bilaterally. Absent: respiratory distress, wheezes, rales, rhonchi, stridor Cardiovascular Exam: Present: regular rate, normal rhythm, normal heart sounds. Absent: systolic murmur, diastolic murmur, rubs, gallop, clicks GI/Abdominal exam: Present: soft, normal bowel sounds. Absent: distended, tenderness, guarding, rebound, rigid Extremities exam: Present: normal inspection, full ROM, normal capillary refill. Absent: tenderness, pedal edema, joint swelling, calf tenderness Back exam: Present: normal inspection Neurological exam: Present: alert, oriented X3, CN II-XII intact Psychiatric exam: Present: normal affect, normal mood Skin exam: Present: warm, dry, intact, normal color. Absent: rash Course Vital Signs 02/01/21 04:18 Temperature 98 F Pulse Rate 96 Respiratory 18 Rate Blood Pressure 151/92 O2 Sat by Pulse 97 Oximetry - Reevaluation(s) Reevaluation #1: 02/01/21 05:31 Medical record is reviewed Reevaluation #2: 02/01/21 05:31 Patient continues to have no complaints here in the ER Reevaluation #3: 02/01/21 05:31 Patient scalp laceration is repaired - Consultations Consultation #1: Spoke with [facility] were agrees to accept Procedures - Laceration Laceration #1 Consent Obtained: verbal consent Indication: laceration Site: scalp Size (cm): 5 Description: linear Type of Sutures: other (chato) Size of Sutures: other (chato) Technique: simple, interrupted Patient Tolerated Procedure: well Medical Decision Making - Medical Decision Making 80 male to the ER for evaluation patient does have positive fall with subarachnoid subdural hemorrhage. Scalp laceration which is repaired. Patient will be transferred to [facility] for evaluation and treatment Critical Care Time Critical Care Time: Yes Total Critical Care Time: 31 Disposition Clinical Impression: Fall, Occipital scalp laceration, Subdural hemorrhage, Subarachnoid hemorrhage Disposition: OTHER INSTITUTION NOT DEFINED Condition: Serious Instructions (If sedation given, give patient instructions): [facility] (ED) Is patient prescribed a controlled substance at d/c from ED?: No Referrals: None,Stated [Primary Care Provider] - 1-2 days - Out of Hospital Transfer - Req. Specs Out of Hospital Transfer - Requested Specifics: Other Emergency Center ([facility])
[2021-02-01 06:12] LABS: Basophils % (A) 1 %; Eosinophils # (A) 0.2 k/uL (0-0.7); Eosinophils % (A) 2 %; HCT 44.3 % (39.0-53.0); HGB 14.6 gm/dL (13.0-17.5); Lymphocytes # (A) 0.9 k/uL (1.0-4.8); Lymphocytes % (A) 13 %; MCH 31.4 pg (25.0-35.0); MCV 95.3 fL (80.0-100.0); Mean Platelet Volume 7.8; Monocytes # (A) 0.4 k/uL (0-1.0); Monocytes % (A) 6 %; Neutrophils # (A) 5.3 k/uL (1.3-7.7); Neutrophils % (A) 78 %; Platelet Count 188 k/uL (150-450); RBC 4.65 m/uL (4.30-5.90); RDW 13.9 % (11.5-15.5); WBC 6.8 k/uL (3.8-10.6)
--- NOTE | 2021-02-01 06:22 | ED ---
Medical Decision Making - Medical Decision Making 80 male to the ER with fall with small subdural hemorrhage, asymptomatic, patient did have scalp laceration again which is repaired. Patient be admitted for neuro evaluation, repeat computed tomography scan in trauma service - Lab Data Result diagrams: 02/01/21 05:51 Lab Results 02/01/21 Range/Units 05:51 WBC 6.8 (3.8-10.6) k/uL RBC 4.65 (4.30-5.90) m/uL Hgb 14.6 (13.0-17.5) gm/dL Hct 44.3 (39.0-53.0) % MCV 95.3 (80.0-100.0) fL MCH 31.4 (25.0-35.0) pg MCHC 33.0 (31.0-37.0) g/dL RDW 13.9 (11.5-15.5) % Plt Count 188 (150-450) k/uL MPV 7.8 Neutrophils % 78 % Lymphocytes % 13 % Monocytes % 6 % Eosinophils % 2 % Basophils % 1 % Neutrophils # 5.3 (1.3-7.7) k/uL Lymphocytes # 0.9 L (1.0-4.8) k/uL Monocytes # 0.4 (0-1.0) k/uL Eosinophils # 0.2 (0-0.7) k/uL Basophils # 0.0 (0-0.2) k/uL Disposition Clinical Impression: Fall, Occipital scalp laceration, Subdural hemorrhage, Subarachnoid hemorrhage Disposition: ADMITTED IP TO THIS HOSP Condition: Undetermined Instructions (If sedation given, give patient instructions): [facility] (ED) Is patient prescribed a controlled substance at d/c from ED?: No Referrals: None,Stated [Primary Care Provider] - 1-2 days
[2021-02-01 06:28] LABS: ALT 18 U/L (4-49); AST 29 U/L (17-59); African American GFR (CKD) >90 (>60 ml/min/1.73 sqM); Albumin 4.2 g/dL (3.5-5.0); Alkaline Phosphatase 64 U/L (38-126); Anion Gap 11 mmol/L; Blood Urea Nitrogen 29 mg/dL (9-20); Carbon Dioxide 24 mmol/L (22-30); Chloride 106 mmol/L (98-107); Glucose 182 mg/dL (74-99); Non-African American GFR(CKD) 88 (>60 ml/min/1.73 sqM); Potassium 4.6 mmol/L (3.5-5.1); Sodium 141 mmol/L (137-145); Total Protein 6.8 g/dL (6.3-8.2)
[2021-02-01] MEDS ORDERED: SODIUM CHLORIDE 0.9% 1,000 ML IV SCH (06:30)
[2021-02-01 07:34] VITALS: RESP 20; TEMP 98.3
[2021-02-01 07:53] LABS: Partial Thromboplastin Time 22.9 sec (22.0-30.0); Prothrombin Time 10.9 sec (9.0-12.0)
--- NOTE | 2021-02-01 08:33 | P.CNNES ---
History of Present Illness Consult date: 02/01/21 Requesting physician: Nils Bryant Reason for Consult: subdural hemorrhage History of Present Illness: This is a 80-year-old gentleman with medical history of diabetes mellitus, TIA X2, Parkinson's disease that comes to the emergency department on 02/01/2021 after a fall in bathroom earlier today. Some of the history is obtained by the patient's (Rajani). According to patient early in the morning today around 4:00 he found himself in the bathroom and does not recall what transpired. He denies having any episodes of chest pain palpitation that he recalls and he doesn't recall the event much only remembers is waking up in the bathroom. He does not have any history of seizure. According to the around between 3:30 to 4:00 in the morning she heard a loud noise and the bathroom. And she saw her and the on the floor and he had no jerk in of any of the extremities. Per the patient she thinks that the patient tripped on the bathroom shana as a result he fell. She denies her having any prior episodes of loss of consciousness or seizure in the past. Per the patient he denies any urinary or bowel, sorry tongue bite. Patient had some bleeding coming from the right occi pital region of the scalp as a result of the fall the patient called EMS. Per the ED note upon arrival the patient was doing well patient-rich. The patient is on Plavix 75mg and ASA 81mg daily. Patient is on any anticoagulation. Patient denies of any headache, visual disturbance, weakness, numbness or difficulty getting his words out. Eyes of any nausea or vomiting. He has some pain over the right occipital region when he had the chato done in the ED. Some of the other patient's home medication is carbidopa levodopa 25/100 one tablet 4 times a day. Lipitor 40 mg daily at bedtime. Patient is on the multiple diabetic medication. The patient's she stated the patient had transient left-sided weakness about 56 years ago as well as transient left-sided weakness and a little bit more than a year ago. Patient follows up with a neurologist Dr. Magaña as an outpatient he has a loop recorder for these episodes of TIA/stroke. Patient's stated that the there were told that the patient had a brief episode or arrhythmias since she is on a loop recorder and he's been on it for about a year. 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 Workup in the hospital consisted of: Blood pressure is 151/92, heart rate of 96, respiratory of 18, temperature of 98 Fahrenheit oral and pulse ox of 97% at room air. Patient hemoglobin is 14.6 which is normal and MCV is 95.3 again which is normal. The serum glucose is 182 which is elevated. Otherwise the rest of the basic electrolyte panel is normal. CT of the head is reported as hyperdense subdural hemorrhage noted along the parafalcine regione measuring up to 4 mm in thickness. There is also subtle subarachnoid hemorrhage layering along the corpus callosum and within several paramedian cerebral sulci in the frontal parietal region. No significant mass effect. However recommend short-term interval follow-up to ensure stability over time. There is a new hypodense subcortical area in the right frontal parietal region measuring 7 mm when compared to the previous examination. This appears is most consistent with subacute to chronic lacunar infarct. I personally reviewed the CT of the head I felt that the patient had that to lacunar infarct which seems chronic/old over the right frontal parietal region subcortical region as well as in the posterior internal capsule area on the border of the thalamus on the right. CT cervical spine is reported as no acute osseous traumatic injury or significant abnormal alignment involving the cervical spine. Initially upon reviewing the ED notes was mentioned that the patient will be transferred to [facility]. But then I started the patient is being admitted to the floors. Upon contacting the patient's nurse she notified me that the ED spoke with trauma team and they felt the bleed was very minimal and the as a result they'll get further serial CT images to evaluate for the bleed. Review of Systems Review of system: The 12 point system was reviewed and apparent positive and negative per HPI. Past Medical History Past Medical History: CVA/TIA, Diabetes Mellitus, Eye Disorder, Neurologic Disorder, Prostate Disorder, Thyroid Disorder Additional Past Medical History / Comment(s): PARKINSON'S. BILAT CATARACTS. [id number] LEFT SIDE History of Any Multi-Drug Resistant Organisms: None Reported Past Surgical History: Hernia Repair Additional Past Surgical History / Comment(s): bowel obstruction as a baby. COLONOSCOPY. Past Anesthesia/Blood Transfusion Reactions: No Reported Reaction Past Psychological History: No Psychological Hx Reported Smoking Status: Never smoker Past Alcohol Use History: Occasional Past Drug Use History: None Reported - Past Family History Father Family Medical History: Asthma, Cancer, Congestive Heart Failure (CHF), CVA/TIA Mother Family Medical History: Congestive Heart Failure (CHF), Diabetes Mellitus Medications and Allergies Home Medications Medication Instructions Recorded Confirmed Type Aspirin [Adult Low Dose Aspirin EC] 81 mg PO BID 06/20/19 02/01/21 History Carbidopa-Levodopa 25-100 mg 1 tab PO QID 06/20/19 02/01/21 History [Sinemet 25-100 mg] Tamsulosin [Flomax] 0.4 mg PO BID 06/20/19 02/01/21 History Atorvastatin [Lipitor] 40 mg PO HS tab 03/09/20 02/01/21 Rx Clopidogrel [Plavix] 75 mg PO DAILY tab 03/09/20 02/01/21 Rx Levothyroxine Sodium [Synthroid] 75 mcg PO DAILY@0630 tab 03/09/20 02/01/21 Rx C,E,Zinc,Copper 11/Lqftf1t/Lut 1 cap PO DAILY 02/01/21 02/01/21 History [Ocuvite Adult 50 Plus Softgel] Losartan [Cozaar] 50 mg PO BID 02/01/21 02/01/21 History Metoprolol Succinate (ER) [Toprol 25 mg PO DAILY 02/01/21 02/01/21 History Xl] Mirabegron [Myrbetriq] 50 mg PO DAILY 02/01/21 02/01/21 History Pioglitazone HCl 30 mg PO DAILY 02/01/21 02/01/21 History Ubidecarenone [Co Q-10] 400 mg PO DAILY 02/01/21 02/01/21 History glipiZIDE [Glucotrol] 10 mg PO BID 02/01/21 02/01/21 History metFORMIN HCL 1,500 mg PO HS 02/01/21 02/01/21 History metFORMIN HCL [Glucophage] 1,000 mg PO QAM 02/01/21 02/01/21 History Allergies Allergy/AdvReac Type Severity Reaction Status Date / Time No Known Allergies Allergy Verified 02/01/21 07:09 Physical Examination - Vital Signs Vital Signs: Vital Signs Temp Pulse Resp BP Pulse Ox 02/01/21 04:18 98 F 96 18 151/92 97 Intake and Output 01/31/21 02/01/21 02/01/21 22:59 06:59 14:59 Other: Weight 97.069 kg GENERAL: The patient is lying in bed and is not in acute distress. HENT: Has staple over the right occipital scalp region. CHEST: The heart rate is regular rate rhythm. No murmurs to auscultation. No carotid bruit bilaterally. LUNG: Clear to auscultation bilaterally no wheezing noted throughout. Not labored breathing. ABDOMEN/GI: Bowel sounds present in all 4 quadrants. No tenderness to palpation throughout. NEUROLOGICAL: Higher mental function: The patient is awake, alert, oriented to self, place and time. Patient is following commands. No aphasia and no neglect. Cranial nerves: The pupils are round, equal and reactive to light and accommodation. Visual poole are full to confrontation throughout. Extraocular movement is intact no nystagmus is noted. Facial sensation is normal to touch throughout. The facial strength is right nasolabial flattening (per patient seems chronic). normal throughout. Hearing is normal bilaterally to hand rub. Tongue is midline and moved [id number] without any difficulty. No dysarthria is noted. Shoulder shrug is normal bilaterally. Motor: Gait is normal. The strength is 5 over 5 throughout. Normal tone and bulk. Does not have resting tremor but has tremor to end of action. Cerebellum: Normal finger to nose heel to chin bilaterally. Sensation: Sensation is normal to touch throughout. Reflexes (right/left): 2+ throughout. Plantars are downgoing bilaterally. Results - Laboratory Findings CBC and BMP: 02/01/21 05:51 02/01/21 05:51 Abnormal Lab Findings: Abnormal Labs 02/01/21 02/01/21 05:51 05:51 Lymphocytes # 0.9 L BUN 29 H Glucose 182 H Assessment and Plan Assessment: This is a 80-year-old gentleman presented to the emergency department on 02/01/2021 after sustaining a fall in the bathroom today. Subdural hemorrhage noted along the parafalcine regione with subarachoid hemorrhage: Likely traumatic. Episode of fall with loss of consciousness: Mechanical fall vs syncope. Cannot exclude seizure (which seems less likely). 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 Seems small vessel disease due to his risk factors (DM, age, HTN) Parkinson's disease Diabetes mellitus Plan: CT of the head is reported as hyperdense subdural hemorrhage noted along the parafalcine regione measuring up to 4 mm in thickness. There is also subtle subarachnoid hemorrhage layering along the corpus callosum and within several paramedian cerebral sulci in the frontal parietal region. No significant mass effect. However recommend short-term interval follow-up to ensure stability over time. There is a new hypodense subcortical area in the right frontal parietal region measuring 7 mm when compared to the previous examination. This appears is most consistent with subacute to chronic lacunar infarct. I personally reviewed the CT of the head I felt that the patient had that to lacunar infarct which seems chronic/old over the right frontal parietal region subcortical region as well as in the posterior internal capsule area on the border of the thalamus on the right. CT cervical spine is reported as no acute osseous traumatic injury or significant abnormal alignment involving the cervical spine. Patient is on every hour neuro checks. Continue cardiac monitoring CT of the head is ordered for 1400 today. I will order a CTA of the head and neck stat to rule out any aneurysm or vascular malformation. Lipid panel is ordered by the ED team is pending PT, INR and PTT are ordered are pending I started the patient on Keppra 500 mg 1 tablet twice a day for seizure prophylaxis. Patient to be on it for 7 days and after that if no seizures he can come off of the Keppra without any titration. I ordered routine EEG. Aspirin and the Plavix are held for now. Please avoid any subq heparin for the first 24-48 hours until we gets repeated image to make sure it stable bleeding. Recommend the systolic blood pressure <140. We'll defer the management to the primary team. I recommend the patient to be taken to ICU since it is difficult to do neuro Q1 hours on the floors. Recommend cardiology consult since has loop recorder and per the patient's they were told he had brief arrhythmia Upon speaking with ICU attending, he feels the patient is not suitable for ICU and needs neurosurgical evaluation. I agree with Dr. Suárez (ICU attending). Therefore I recommend patient to be transferred to a tertiary center. For DVT prophylaxis recommend SCD's. We'll defer the rest of the medical management to the primary team. The plan was discussed with the patient, his and the ED team attending. UPDATE: It seems that the patient was accepted to [facility] so therefore he'll be transferred out. Reji Restrepo MD Neuro-Hospitalist Time with Patient: Greater than 30
[2021-02-01] MEDS ORDERED: levETIRAcetam 500 MG TAB PO SCH (09:00)
[2021-02-01] MEDS ORDERED: CARBIDOPA-LEVODOPA 25-100 MG 1 EACH TAB PO SCH (09:00)
[2021-02-01 10:45] VITALS: BP 146/56; PULSE 77
== END 2021-02-01 10:42 | disposition short-term general hospital (02) | DRG 84 ==
LOC: EC 04:17 → 5NMEDONC 06:20
PROVIDERS: ADMIT Surgery; ATTEND Surgery
PROC: 0HQ0XZZ Repair Scalp Skin, External Approach (ICD-10-PCS; principal; 2021-02-01)
DX: S06.5X9A Traumatic subdural hemorrhage with loss of consciousness of unspecified duration, initial encounter (principal); S06.6X9A Traumatic subarachnoid hemorrhage with loss of consciousness of unspecified duration, initial encounter; R40.2362 Coma scale, best motor response, obeys commands, at arrival to emergency department; R40.2142 Coma scale, eyes open, spontaneous, at arrival to emergency department; R40.2242 Coma scale, best verbal response, confused conversation, at arrival to emergency department; E11.51 Type 2 diabetes mellitus with diabetic peripheral angiopathy without gangrene; G20 Parkinson's disease; F02.80 Dementia in other diseases classified elsewhere, unspecified severity, without behavioral disturbance, psychotic disturbance, mood disturbance, and anxiety; I10 Essential (primary) hypertension; S01.01XA Laceration without foreign body of scalp, initial encounter; W01.0XXA Fall on same level from slipping, tripping and stumbling without subsequent striking against object, initial encounter; Y93.9 Activity, unspecified; Y92.002 Bathroom of unspecified non-institutional (private) residence as the place of occurrence of the external cause; Z20.822 Contact with and (suspected) exposure to COVID-19; Z79.02 Long term (current) use of antithrombotics/antiplatelets; Z79.4 Long term (current) use of insulin; Z79.82 Long term (current) use of aspirin; Z79.890 Hormone replacement therapy; Z79.899 Other long term (current) drug therapy; Z82.49 Family history of ischemic heart disease and other diseases of the circulatory system; Z82.5 Family history of asthma and other chronic lower respiratory diseases; Z83.3 Family history of diabetes mellitus; Z82.3 Family history of stroke; Z80.9 Family history of malignant neoplasm, unspecified; Z98.42 Cataract extraction status, left eye; Z98.41 Cataract extraction status, right eye
CPT/HCPCS: 12002; 36415; 70450; 72125; 80053; 85025; 85610; 85730; 87635; 99285

== ENCOUNTER → 2021-03-22 | Outpatient (CLI) | payer MEDICARE ==
[2021-03-22 23:03] LABS: Basophils # (A) 0.04 X 10*3/uL (0.00-0.10); Basophils % (A) 0.6 %; Eosinophils # (A) 0.12 X 10*3/uL (0.04-0.35); Eosinophils % (A) 1.7 %; HCT 42.3 % (39.6-50.0); HGB 13.1 g/dL (13.0-17.0); Lymphocytes % (A) 15.2 %; MCH 30.5 pg (27.0-32.0); MCV 98.4 fL (80.0-97.0); Mean Platelet Volume 11.1 fL (9.5-12.2); Monocytes # (A) 0.64 X 10*3/uL (0.20-1.00); Monocytes % (A) 8.8 %; Neutrophils # (A) 5.32 X 10*3/uL (1.80-7.70); Neutrophils % (A) 73.4 %; Platelet Count 230 X 10*3/uL (140-440); RDW 14.4 % (11.5-14.5); WBC 7.24 X 10*3/uL (4.50-10.00)
[2021-03-23 00:14] LABS: African American GFR (CKD) 83.2 (60.0-200.0); Albumin 4.5 g/dL (3.80-4.90); Albumin/Globulin Ratio 2.14 (1.60-3.17); Anion Gap 10.1 mmol/L (4.00-12.00); Calcium 9.6 mg/dL (8.7-10.3); Carbon Dioxide 26.9 mmol/L (21.6-31.8); Globulin 2.1 g/dL (1.6-3.3); Non-African American GFR(CKD) 71.8 (60.0-200.0); Potassium 4.5 mmol/L (3.5-5.5); Total Bilirubin 1.3 mg/dL (0.2-1.2); Total Protein 6.6 g/dL (6.2-8.2)
[2021-03-23 01:27] LABS: Hemoglobin A1C 7.4 % (4.0-6.0)
[2021-03-26 00:50] LABS: T4, Free (Free Thyroxine) 1.6 ng/dL (0.80-1.80)
== END | disposition home or self-care (01) ==
LOC: LABWHC1 15:46
PROVIDERS: ATTEND Internal Medicine
DX: I10 Essential (primary) hypertension (principal); I62.00 Nontraumatic subdural hemorrhage, unspecified; E55.9 Vitamin D deficiency, unspecified; E78.5 Hyperlipidemia, unspecified; D64.9 Anemia, unspecified; R00.0 Tachycardia, unspecified
CPT/HCPCS: 36415; 80053; 82306; 83036; 84439; 84443; 85025

== ENCOUNTER → 2021-03-27 | Outpatient (CLI) | payer MEDICARE ==
--- NOTE | 2021-03-27 21:40 | CT ---
EXAMINATION TYPE: CT brain wo con DATE OF EXAM: 03/27/2021 HISTORY: weakness, sense of falling, recent acute intracranial hemorrhage. CT DLP: 1012.7 mGycm. Automated Exposure Control for Dose Reduction was Utilized. TECHNIQUE: CT scan of the head is performed without contrast. COMPARISON: CT brain February 01, 2021. FINDINGS: There is no acute intracranial hemorrhage or midline shift identified currently. Interval resolution of prior visualized acute intracranial hemorrhage. There is diffuse ventricular and sulca l prominence consistent with diffuse age-related cerebral atrophy. There is low-attenuation in the p eriventricular white matter consistent with chronic small vessel ischemic change. Scleral calcificati on bilateral globes redemonstrated. Lobulated mucous retention cyst and/or polyp right maxillary sinu s axial image 1 is partially imaged. Remainder visualized paranasal sinuses remain clear. IMPRESSION: No acute intracranial hemorrhage or midline shift currently. There is mild to moderate diffuse age-related cerebral atrophy and chronic small vessel ischemic change redemonstrated.
== END | disposition home or self-care (01) ==
LOC: RADCTMAIN 16:50
PROVIDERS: ATTEND Psychiatry & Neurology Neurology
DX: Z09 Encounter for follow-up examination after completed treatment for conditions other than malignant neoplasm (principal); G31.9 Degenerative disease of nervous system, unspecified; Z86.79 Personal history of other diseases of the circulatory system
CPT/HCPCS: 70450

== ENCOUNTER → 2021-07-16 | Outpatient (CLI) | payer MEDICARE ==
[2021-07-16 19:02] LABS: Hemoglobin A1C 7.5 % (4.0-6.0)
[2021-07-17 09:29] LABS: AST 26 U/L (14-35); African American GFR (CKD) 83.2 (60.0-200.0); Alkaline Phosphatase 52 U/L (41-126); C Reactive Protein <0.4 mg/dL (0.0-0.8); Carbon Dioxide 25.3 mmol/L (21.6-31.8); Chloride 106 mmol/L (96-109); Chol/HDL Ratio 2.59; Cholesterol 119 mg/dL (0-200); Creatine Kinase 58 U/L (35-257); Globulin 2.2 g/dL (1.6-3.3); Glucose 162 mg/dL (70-110); LDL Cholesterol,Calculated 54.2 mg/dL (0.0-131.0); Non-African American GFR(CKD) 71.8 (60.0-200.0); Prostate Specific Antigen 3.6 ng/mL (0.0-6.5); Sodium 143 mmol/L (135-145); Total Bilirubin 1.2 mg/dL (0.2-1.2); Total Protein 6.6 g/dL (6.2-8.2)
[2021-07-17 10:44] LABS: ALT 32 U/L (10-49)
== END | disposition home or self-care (01) ==
LOC: LABWHC1 08:31
PROVIDERS: ATTEND Internal Medicine
DX: Z00.00 Encounter for general adult medical examination without abnormal findings (principal); D64.9 Anemia, unspecified; I10 Essential (primary) hypertension; E78.5 Hyperlipidemia, unspecified; E11.65 Type 2 diabetes mellitus with hyperglycemia; E03.9 Hypothyroidism, unspecified; G20 Parkinson's disease; I48.91 Unspecified atrial fibrillation; I63.89 Other cerebral infarction
CPT/HCPCS: 36415; 80053; 80061; 82550; 83036; 84153; 84439; 84443; 85652; 86140

== ENCOUNTER → 2021-11-05 | Outpatient (CLI) | payer MEDICARE | END | disposition home or self-care (01) | LOC: LABWHC1 17:12 | PROVIDERS: ATTEND Internal Medicine Endocrinology, Diabetes & Metabolism | DX: E11.65 Type 2 diabetes mellitus with hyperglycemia (principal) | CPT/HCPCS: 36415; 83036; 84443 ==

== ENCOUNTER → 2022-07-23 | Outpatient (CLI) | payer MEDICARE ==
[2022-07-23 22:59] LABS: ALT 22 U/L (10-49); AST 18 U/L (14-35); African American GFR (CKD) 61.9 (60.0-200.0); Albumin 4.4 g/dL (3.8-4.9); Albumin/Globulin Ratio 1.94 (1.60-3.17); Alkaline Phosphatase 55 U/L (41-126); BUN/Creat Ratio 22.83 Ratio (12.00-20.00); Calcium 9.7 mg/dL (8.7-10.3); Chloride 105 mmol/L (96-109); Creatine Kinase 46 U/L (35-257); Globulin 2.3 g/dL (1.6-3.3); Glucose 217 mg/dL (70-110); Magnesium 1.8 mg/dL (1.5-2.4); Non-African American GFR(CKD) 53.4 (60.0-200.0); Phosphorus 3.7 mg/dL (2.4-5.1); Potassium 4.2 mmol/L (3.5-5.5); Sodium 143 mmol/L (135-145); Total Protein 6.6 g/dL (6.2-8.2); Uric Acid 4.2 mg/dL (3.7-8.7)
[2022-07-23 23:12] LABS: Chol/HDL Ratio 2.56 Ratio; LDL Cholesterol,Calculated 53.3 mg/dL (0.0-131.0); VLDL Calculation 19.34 mg/dL (5.00-40.00)
[2022-07-23 23:32] LABS: Basophils # (A) 0.04 X 10*3/uL (0.00-0.10); Basophils % (A) 0.5 %; Eosinophils # (A) 0.12 X 10*3/uL (0.04-0.35); Eosinophils % (A) 1.4 %; HCT 43.4 % (39.6-50.0); HGB 13.4 g/dL (13.0-17.0); Immature Grans, Automated 0.3 %; Lymphocytes # (A) 1.32 X 10*3/uL (0.90-5.00); MCH 30.5 pg (27.0-32.0); MCHC 30.9 g/dL (32.0-37.0); MCV 98.6 fL (80.0-97.0); Mean Platelet Volume 10.9 fL (9.5-12.2); Monocytes # (A) 0.69 X 10*3/uL (0.20-1.00); Monocytes % (A) 7.9 %; NRBC Per 100 WBC 0 /100 WBCS (0.0-0.0); Neutrophils # (A) 6.58 X 10*3/uL (1.80-7.70); Neutrophils % (A) 74.9 %; Platelet Count 233 X 10*3/uL (140-440); RDW 14.4 % (11.5-14.5); WBC 8.78 X 10*3/uL (4.50-10.00)
[2022-07-23 23:49] LABS: Erythrocyte Sedimentation Rate 39 mm/Hr (0-20)
== END | disposition home or self-care (01) ==
LOC: LABWHC1 14:40
PROVIDERS: ATTEND Internal Medicine
DX: Z00.00 Encounter for general adult medical examination without abnormal findings (principal); D64.9 Anemia, unspecified; M10.9 Gout, unspecified; I12.9 Hypertensive chronic kidney disease with stage 1 through stage 4 chronic kidney disease, or unspecified chronic kidney disease; N18.30 Chronic kidney disease, stage 3 unspecified; E78.5 Hyperlipidemia, unspecified; E11.65 Type 2 diabetes mellitus with hyperglycemia; E03.9 Hypothyroidism, unspecified; I63.9 Cerebral infarction, unspecified; E55.9 Vitamin D deficiency, unspecified; I48.91 Unspecified atrial fibrillation; Z86.73 Personal history of transient ischemic attack (TIA), and cerebral infarction without residual deficits
CPT/HCPCS: 36415; 80053; 80061; 82306; 82550; 83036; 83735; 84100; 84153; 84439; 84443; 84550; 85025; 85652; 86140

== ENCOUNTER → 2022-09-22 | Outpatient (CLI) | payer MEDICARE ==
--- NOTE | 2022-09-23 09:23 | US ---
EXAMINATION TYPE: US kidneys/renal and bladder DATE OF EXAM: 09/22/2022 COMPARISON: None CLINICAL HISTORY: 81-year-old male N18.3 CHRONIC KIDNEY DISEASE. CKD. FINDINGS: EXAM MEASUREMENTS: Right Kidney: 11.3 x 5.8 x 5.3 cm Left Kidney: 11.9 x 6.2 x 5.9 cm Right Kidney: Cortical thinning. No hydronephrosis. Perinephric hypoechogenicity likely mild perineph celi edema. Hyperechoic focus seen lower: 0.6 x 0.4 x 0.5 cm. Left Kidney: Some similar mild perinephric edema. No hydronephrosis. Echogenic focus seen mid: 0.6 x 0.6 x 0.6 cm. Bladder: Under distention limits evaluation. Bilateral Jets seen: Yes Underwear Trimmer notes: Unable to visualize ureters bilaterally. IMPRESSION: 1. No hydronephrosis. 2. Cortical thinning compatible with underlying chronic medical renal disease. 3. Mild bilateral perinephric edema could reflect senescent change or chronic kidney disease.
[2022-09-23 10:50] LABS: African American GFR (CKD) 72.8 (60.0-200.0); Anion Gap 11.3 mmol/L (10.00-18.00); BUN/Creat Ratio 22.97 Ratio (12.00-20.00); Blood Urea Nitrogen 25.5 mg/dL (9.0-27.0); Calcium 9.8 mg/dL (8.7-10.3); Carbon Dioxide 25.9 mmol/L (20.0-27.5); Non-African American GFR(CKD) 62.8 (60.0-200.0); Potassium 4.8 mmol/L (3.5-5.5)
== END | disposition home or self-care (01) ==
LOC: RADUSWWP 15:22
PROVIDERS: ATTEND Internal Medicine
DX: N18.31 Chronic kidney disease, stage 3a (principal); R60.0 Localized edema
CPT/HCPCS: 76770; 80048

== ENCOUNTER → 2023-02-13 | Outpatient (CLI) | payer MEDICARE ==
[2023-02-13 15:55] LABS: T4, Free (Free Thyroxine) 1.51 ng/dL (0.800-1.800)
== END | disposition home or self-care (01) ==
LOC: LABWHC1 08:29
PROVIDERS: ATTEND Internal Medicine Endocrinology, Diabetes & Metabolism
DX: E03.9 Hypothyroidism, unspecified (principal); E05.90 Thyrotoxicosis, unspecified without thyrotoxic crisis or storm
CPT/HCPCS: 36415; 83036; 84439; 84443

== ENCOUNTER 2023-04-06 06:52 | Day surgery (SDC) | payer MEDICARE ==
[2023-04-03 14:05] VITALS: BMI 28.4
[~2023-04-06 06:52] MED LIST changes: -LACTATED RINGERS 1,000 ML IV SCH; -LIDOCAINE 1% 20 ML VIAL (10MG/ML) FOR IV START INTRADERMA PRN; +SODIUM CHLORIDE 0.9% 1,000 ML IV SCH
[2023-04-06 07:13] VITALS: RESP 18; TEMP 97.8
[2023-04-06 07:18] LABS: Glucose,Whole Blood 172 mg/dL (70-110)
[2023-04-06] MEDS ORDERED: LIDOCAINE 1% INJ 10MG/ML (20 ML MDV) SQ ONE (08:07)
[2023-04-06] MEDS ORDERED: MIDAZOLAM 2 MG/2 ML VIAL IV ONE (08:08)
--- NOTE | 2023-04-06 08:16 | P.EPPROC ---
- EP Procedure Note Electrophysiology Procedure Note: Procedure: Loop explant under sedation and local anesthesia. Diagnosis: Loop monitor at [facility] Patient was brought to the EP lab in a fasting state. Written informed consent was obtained prior to the procedure. The subcutaneous device was successfully explanted under local anesthesia. Preoperative antibiotics were administered. The wound was closed in layers and dressed per protocol. Result: Successful loop monitor explantation.
--- NOTE | 2023-04-06 08:18 | P.PCN ---
Preoperative Diagnosis: Patient underwent EP procedure under conscious sedation/moderate sedation, monitoring of the level of consciousness and physiologic parameters including but not limited to vital signs and oxygenation. Patient tolerated the procedure well without any acute complications. Start time: 804 Stop time: 810
[2023-04-06 09:08] VITALS: BP 133/66; PULSE 77
== END 2023-04-06 09:30 | disposition home or self-care (01) ==
LOC: CATHEP 06:52
PROVIDERS: ATTEND Internal Medicine Clinical Cardiac Electrophysiology
DX: T82.111A Breakdown (mechanical) of cardiac pulse generator (battery), initial encounter (principal); E11.9 Type 2 diabetes mellitus without complications; I10 Essential (primary) hypertension; E78.5 Hyperlipidemia, unspecified; Z79.82 Long term (current) use of aspirin; Z79.899 Other long term (current) drug therapy
CPT/HCPCS: 33286; J2250; J0690; J2001

== ENCOUNTER → 2023-05-15 | Outpatient (CLI) | payer MEDICARE ==
[2023-05-15 15:38] LABS: Basophils # (A) 0.05 X 10*3/uL (0.00-0.10); Basophils % (A) 0.7 %; Eosinophils # (A) 0.17 X 10*3/uL (0.04-0.35); Eosinophils % (A) 2.4 %; HCT 43.4 % (39.6-50.0); HGB 13.4 d/dL (12.0-15.0); Lymphocytes # (A) 1.05 X 10*3/uL (0.90-5.00); Lymphocytes % (A) 14.9 %; MCH 30.6 pg (27.0-32.0); MCHC 30.9 d/dL (32.0-37.0); MCV 99.1 FL (80.0-97.0); Mean Platelet Volume 10.5 FL (9.5-12.2); Monocytes # (A) 0.54 X 10*3/uL (0.20-1.00); Monocytes % (A) 7.6 %; NRBC Per 100 WBC 0 X 10*3/uL (0.00-0.01); Neutrophils # (A) 5.22 X 10*3/uL (1.80-7.70); Neutrophils % (A) 73.8 %; Platelet Count 265 X 10*3/uL (140-440); RBC 4.38 X 10*6/uL (4.40-5.60); RDW 14.2 % (11.5-14.5); WBC 7.07 X 10*3/uL (4.50-10.00)
[2023-05-15 15:55] LABS: % Iron Saturation 26.28 (15.00-50.00); ALT <5 U/L (10-49); AST 14 U/L (14-35); Albumin 4.2 d/dL (3.8-4.9); Albumin/Globulin Ratio 1.91 Ratio (1.60-3.17); Alkaline Phosphatase 59 U/L (41-126); Blood Urea Nitrogen 26.3 mg/dL (9.0-27.0); C Reactive Protein <0.30 mg/dL (0.00-0.80); Carbon Dioxide 25.6 mmol/L (21.6-31.8); Chloride 108 mmol/L (96-109); Chol/HDL Ratio 2.46 Ratio; Creatine Kinase 43 U/L (35-257); Globulin 2.2 d/dL (1.6-3.3); Glucose 177 mg/dL (70-110); Iron 82 UG/DL (65-175); LDL Cholesterol,Calculated 41.4 mg/dL (0.0-131.0); Magnesium 1.7 mg/dL (1.5-2.4); Phosphorus 3.1 mg/dL (2.4-5.1); Potassium 5.4 mmol/L (3.5-5.5); Sodium 143 mmol/L (135-145); Total Bilirubin 0.6 mg/dL (0.3-1.2); Total Iron Binding Capacity 312 UG/DL (228-460); Total Protein 6.4 d/dL (6.2-8.2); Uric Acid 3.6 mg/dL (3.7-8.7)
[2023-05-15 15:56] LABS: Ferritin 89.3 ng/mL (22.0-322.0); T4, Free (Free Thyroxine) 1.66 ng/dL (0.80-1.80)
[2023-05-15 16:28] LABS: Erythrocyte Sedimentation Rate 14 mm/Hr (0-20)
== END | disposition home or self-care (01) ==
LOC: LABWHC1 10:18
PROVIDERS: ATTEND Internal Medicine Endocrinology, Diabetes & Metabolism
DX: Z00.00 Encounter for general adult medical examination without abnormal findings (principal); E11.65 Type 2 diabetes mellitus with hyperglycemia; D64.9 Anemia, unspecified; N40.0 Benign prostatic hyperplasia without lower urinary tract symptoms; I10 Essential (primary) hypertension; E87.8 Other disorders of electrolyte and fluid balance, not elsewhere classified; M10.9 Gout, unspecified; E78.5 Hyperlipidemia, unspecified; E03.9 Hypothyroidism, unspecified; I63.9 Cerebral infarction, unspecified; R80.9 Proteinuria, unspecified; Z86.73 Personal history of transient ischemic attack (TIA), and cerebral infarction without residual deficits
CPT/HCPCS: 36415; 80053; 80061; 82043; 82306; 82550; 82570; 82728; 83036; 83540; 83550; 83735; 84100; 84153; 84439; 84443; 84550; 85025; 85652; 86140

== ENCOUNTER → 2024-02-11 | Outpatient (CLI) | payer MEDICARE ==
[2024-02-12 03:19] LABS: ALT 19 U/L (10-49); AST 13 U/L (14-35); Albumin 4.2 g/dL (3.8-4.9); Albumin/Globulin Ratio 1.75 Ratio (1.60-3.17); Alkaline Phosphatase 65 U/L (41-126); BUN/Creat Ratio 22.18 Ratio (12.00-20.00); Blood Urea Nitrogen 24.4 mg/dL (9.0-27.0); Carbon Dioxide 25.4 mmol/L (21.6-31.8); Chloride 106 mmol/L (96-109); Globulin 2.4 g/dL (1.6-3.3); Glucose 189 mg/dL (70-110); Potassium 5.2 mmol/L (3.5-5.5); Sodium 145 mmol/L (135-145); Total Bilirubin 0.6 mg/dL (0.3-1.2); Total Protein 6.6 g/dL (6.2-8.2)
== END | disposition home or self-care (01) ==
LOC: LABWHC1 15:00
PROVIDERS: ATTEND Internal Medicine Endocrinology, Diabetes & Metabolism
DX: E11.65 Type 2 diabetes mellitus with hyperglycemia (principal)
CPT/HCPCS: 36415; 80053; 82043; 82570; 83036; 84443

== ENCOUNTER → 2024-05-20 | Outpatient (CLI) | payer MEDICARE ==
[2024-05-20 15:43] LABS: ALT 28 U/L (10-49); AST 20 U/L (14-35); Blood Urea Nitrogen 27.3 mg/dL (9.0-27.0); Calcium 9.8 mg/dL (8.7-10.3); Carbon Dioxide 20.9 mmol/L (21.6-31.8); Chloride 103 mmol/L (96-109); Glucose 184 mg/dL (70-110); Potassium 4.6 mmol/L (3.5-5.5); Sodium 139 mmol/L (135-145)
== END | disposition home or self-care (01) ==
LOC: LABWHC1 11:49
PROVIDERS: ATTEND Internal Medicine
DX: E11.65 Type 2 diabetes mellitus with hyperglycemia (principal); I10 Essential (primary) hypertension; E87.8 Other disorders of electrolyte and fluid balance, not elsewhere classified
CPT/HCPCS: 36415; 80048; 83036; 84450; 84460

== ENCOUNTER → 2024-10-04 | Outpatient (CLI) | payer MEDICARE ==
[2024-10-04 14:50] LABS: Basophils # (A) 0.04 X 10*3/uL (0.00-0.10); Basophils % (A) 0.5 %; Eosinophils # (A) 0.15 X 10*3/uL (0.04-0.35); Eosinophils % (A) 1.8 %; HCT 43.3 % (39.6-50.0); HGB 13.4 g/dL (13.0-17.0); Lymphocytes # (A) 1.32 X 10*3/uL (0.90-5.00); Lymphocytes % (A) 15.6 %; MCH 30.2 pg (27.0-32.0); MCHC 30.9 g/dL (32.0-37.0); MCV 97.5 FL (80.0-97.0); Mean Platelet Volume 10.9 FL (9.5-12.2); Monocytes # (A) 0.69 X 10*3/uL (0.20-1.00); Monocytes % (A) 8.1 %; NRBC Per 100 WBC 0 X 10*3/uL (0.00-0.01); Neutrophils # (A) 6.22 X 10*3/uL (1.80-7.70); Neutrophils % (A) 73.4 %; Platelet Count 248 X 10*3/uL (140-440); RBC 4.44 X 10*6/uL (4.40-5.60); RDW 14.8 % (11.5-14.5); WBC 8.47 X 10*3/uL (4.50-10.00)
[2024-10-04 15:19] LABS: BUN/Creat Ratio 24.62 Ratio (12.00-20.00); Calcium 9.4 mg/dL (8.7-10.3); Carbon Dioxide 24.2 mmol/L (21.6-31.8); Chloride 107 mmol/L (96-109); Glucose 212 mg/dL (70-110); Potassium 4.2 mmol/L (3.5-5.5); Sodium 146 mmol/L (135-145); T4, Free (Free Thyroxine) 1.53 ng/dL (0.80-1.80)
== END | disposition home or self-care (01) ==
LOC: LABWHC1 09:12
PROVIDERS: ATTEND Internal Medicine
DX: E87.8 Other disorders of electrolyte and fluid balance, not elsewhere classified (principal); E11.65 Type 2 diabetes mellitus with hyperglycemia; N39.0 Urinary tract infection, site not specified; D52.9 Folate deficiency anemia, unspecified; E11.22 Type 2 diabetes mellitus with diabetic chronic kidney disease; I12.9 Hypertensive chronic kidney disease with stage 1 through stage 4 chronic kidney disease, or unspecified chronic kidney disease; N18.30 Chronic kidney disease, stage 3 unspecified; D63.1 Anemia in chronic kidney disease; R80.9 Proteinuria, unspecified
CPT/HCPCS: 36415; 80048; 82607; 82746; 83036; 84439; 84443; 84481; 85025